=== PATIENT | female | born 1990 | race Caucasian/White ===

== ENCOUNTER 2019-11-17 11:15 | Observation (INO) | payer OTHER ==
[2019-11-17] MEDS ORDERED: methylPREDNISolone SOD SUCCI 125 MG/2 ML VIAL IV STA (11:31)
[2019-11-17] MEDS ORDERED: SODIUM CHLORIDE 0.9% 1,000 ML IV STA (11:31)
[2019-11-17] MEDS ORDERED: IPRATROPIUM-ALBUTEROL 3 ML NEB INHALATION STA (11:31)
[2019-11-17] MEDS ORDERED: MAGNESIUM SULFATE-D5W PMX 1 GM in DEXTROSE/WATER 1 100ML.BAG IVPB STA (11:31)
--- NOTE | 2019-11-17 11:36 | ED ---
General Adult HPI - General Chief complaint: Shortness of Breath Stated complaint: SOB Time Seen by Provider: 11/17/19 11:23 Source: patient, RN notes reviewed, old records reviewed Mode of arrival: ambulatory Limitations: no limitations - History of Present Illness Initial comments: Patient is a 29-year-old female with history of asthma presents emergency pharmacy with one week of difficulty breathing worsening cough. Patient reports that she previously had been admitted for asthma exacerbations which she was a child. She states she started has somewhat more productive cough the past day. She states that she's been using her breathing treatments at home with no significant relief. She last had one this morning. Patient states that she has had some chest tightness with taking a deep breath. Patient states that she's had no nausea or vomiting or fevers. Patient is a smoker. - Related Data Home Medications Medication Instructions Recorded Confirmed No Known Home Medications 11/17/19 11/17/19 Allergies Allergy/AdvReac Type Severity Reaction Status Date / Time amoxicillin Allergy Rash/Hives Verified 11/17/19 13:21 Review of Systems ROS Statement: Those systems with pertinent positive or pertinent negative responses have been documented in the HPI. ROS Other: All systems not noted in ROS Statement are negative. Past Medical History Past Medical History: Asthma Additional Past Medical History / Comment(s): chronic back issues History of Any Multi-Drug Resistant Organisms: MRSA Date of last positivie culture/infection: 10/2014 MDRO Source:: right arm Past Surgical History: Section, Cholecystectomy Additional Past Surgical History / Comment(s): laser treatment for genital warts Past Psychological History: No Psychological Hx Reported Smoking Status: Current every day smoker Past Alcohol Use History: Rare Past Drug Use History: Marijuana General Exam - General Exam Comments Initial Comments: 29 -year-old female. No significant distress. Limitations: no limitations General appearance: alert, in no apparent distress Head exam: Present: atraumatic, normocephalic, normal inspection Eye exam: Present: normal appearance, PERRL, EOMI. Absent: scleral icterus, conjunctival injection, periorbital swelling ENT exam: Present: normal exam, mucous membranes moist Neck exam: Present: normal inspection. Absent: tenderness, meningismus, lymphadenopathy Respiratory exam: Present: wheezes (wheezing, cough. ). Absent: normal lung sounds bilaterally, respiratory distress, rales, rhonchi, stridor Cardiovascular Exam: Present: regular rate, normal rhythm, normal heart sounds. Absent: systolic murmur, diastolic murmur, rubs, gallop, clicks GI/Abdominal exam: Present: soft, normal bowel sounds. Absent: distended, tenderness, guarding, rebound, rigid Back exam: Present: normal inspection Neurological exam: Present: alert, oriented X3, CN II-XII intact Psychiatric exam: Present: normal affect, normal mood Skin exam: Present: warm, dry, intact, normal color. Absent: rash Course Vital Signs 11/17/19 11/17/19 11/17/19 11:18 11:47 12:01 Temperature 98.1 F Pulse Rate 117 H 89 92 Respiratory 20 Rate Blood Pressure 136/86 O2 Sat by Pulse 97 Oximetry 11/17/19 11/17/19 13:38 13:48 Temperature Pulse Rate 89 90 Respiratory Rate Blood Pressure O2 Sat by Pulse Oximetry - Reevaluation(s) Reevaluation #1: 11/17/19 14:06 After 3 breathing treatments states he reports no significant relief. He does report sinus was obtained and she had a low pulse oxygen saturation around 87- 80% with audible wheezing. Medical Decision Making - Medical Decision Making 29-year-old female presents raise her arm today with chief complaint of one week of worsening difficulty breathing. She reports she has a known history of asthma. She's been doing breathing treatments at home without any significant relief. At this time Patient had 3 breathing treatments continue to have wheezing and ambulatory pulse ox shows that she was 87% on room air. She has audible wheezing continuously. She is given IV site and Medrol and magnesium and saline bolus. Due to persistent dyspnea seeing Patient will be admitted for IV steroids and breathing treatments. She has no fever, chest x-ray findings are concerning and blood work was reviewed and unremarkable. - Lab Data Result diagrams: 11/17/19 11:53 11/17/19 11:53 Lab Results 11/17/19 11/17/19 11/17/19 Range/Units 11:53 11:53 11:53 WBC 9.9 (3.8-10.6) k/uL RBC 5.06 (3.80-5.40) m/uL Hgb 14.7 (11.4-16.0) gm/dL Hct 43.2 (34.0-46.0) % MCV 85.3 (80.0-100.0) fL MCH 29.1 (25.0-35.0) pg MCHC 34.1 (31.0-37.0) g/dL RDW 13.3 (11.5-15.5) % Plt Count 338 (150-450) k/uL Neutrophils % 60 % Lymphocytes % 27 % Monocytes % 3 % Eosinophils % 8 % Basophils % 1 % Neutrophils # 5.9 (1.3-7.7) k/uL Lymphocytes # 2.7 (1.0-4.8) k/uL Monocytes # 0.3 (0-1.0) k/uL Eosinophils # 0.8 H (0-0.7) k/uL Basophils # 0.1 (0-0.2) k/uL PT 10.1 (9.0-12.0) sec INR 1.0 (<1.2) APTT 25.7 (22.0-30.0) sec Sodium 138 (137-145) mmol/L Potassium 4.0 (3.5-5.1) mmol/L Chloride 108 H (98-107) mmol/L Carbon Dioxide 20 L (22-30) mmol/L Anion Gap 10 mmol/L BUN 10 (7-17) mg/dL Creatinine 0.77 (0.52-1.04) mg/dL Est GFR (CKD-EPI)AfAm >90 (>60 ml/min/1.73 sqM) Est GFR (CKD-EPI)NonAf >90 (>60 ml/min/1.73 sqM) Glucose 101 H (74-99) mg/dL Plasma Lactic Acid Sathish (0.7-2.0) mmol/L Calcium 9.6 (8.4-10.2) mg/dL Magnesium 1.9 (1.6-2.3) mg/dL Total Bilirubin 0.6 (0.2-1.3) mg/dL AST 29 (14-36) U/L ALT 33 (4-34) U/L Alkaline Phosphatase 71 (38-126) U/L Total Protein 8.0 (6.3-8.2) g/dL Albumin 4.6 (3.5-5.0) g/dL 11/17/19 Range/Units 11:53 WBC (3.8-10.6) k/uL RBC (3.80-5.40) m/uL Hgb (11.4-16.0) gm/dL Hct (34.0-46.0) % MCV (80.0-100.0) fL MCH (25.0-35.0) pg MCHC (31.0-37.0) g/dL RDW (11.5-15.5) % Plt Count (150-450) k/uL Neutrophils % % Lymphocytes % % Monocytes % % Eosinophils % % Basophils % % Neutrophils # (1.3-7.7) k/uL Lymphocytes # (1.0-4.8) k/uL Monocytes # (0-1.0) k/uL Eosinophils # (0-0.7) k/uL Basophils # (0-0.2) k/uL PT (9.0-12.0) sec INR (<1.2) APTT (22.0-30.0) sec Sodium (137-145) mmol/L Potassium (3.5-5.1) mmol/L Chloride (98-107) mmol/L Carbon Dioxide (22-30) mmol/L Anion Gap mmol/L BUN (7-17) mg/dL Creatinine (0.52-1.04) mg/dL Est GFR (CKD-EPI)AfAm (>60 ml/min/1.73 sqM) Est GFR (CKD-EPI)NonAf (>60 ml/min/1.73 sqM) Glucose (74-99) mg/dL Plasma Lactic Acid Sathish 1.2 (0.7-2.0) mmol/L Calcium (8.4-10.2) mg/dL Magnesium (1.6-2.3) mg/dL Total Bilirubin (0.2-1.3) mg/dL AST (14-36) U/L ALT (4-34) U/L Alkaline Phosphatase (38-126) U/L Total Protein (6.3-8.2) g/dL Albumin (3.5-5.0) g/dL 11/17/19 14:22 EKG shows sinus rhythm normal EKG. Ventricular rate of 87 bpm. AR interval 156 ms. Prescription is 84 ms. QTc is 36/464 ms. - Radiology Data Radiology results: report reviewed Does x-rays negative for suspicious acute pulmonary process. Disposition Clinical Impression: Asthma exacerbation Disposition: ADMITTED IP TO THIS HOSP Condition: Stable Is patient prescribed a controlled substance at d/c from ED?: No Referrals: Shruthi Horta MD [Primary Care Provider] - 1-2 days Time of Disposition: 14:08
[2019-11-17 12:18] LABS: Partial Thromboplastin Time 25.7 sec (22.0-30.0); Prothrombin Time 10.1 sec (9.0-12.0)
[2019-11-17 12:19] LABS: Basophils # (A) 0.1 k/uL (0-0.2); Basophils % (A) 1 %; Eosinophils # (A) 0.8 k/uL (0-0.7); Eosinophils % (A) 8 %; HCT 43.2 % (34.0-46.0); HGB 14.7 gm/dL (11.4-16.0); Lymphocytes # (A) 2.7 k/uL (1.0-4.8); Lymphocytes % (A) 27 %; MCH 29.1 pg (25.0-35.0); MCHC 34.1 g/dL (31.0-37.0); MCV 85.3 fL (80.0-100.0); Mean Platelet Volume 7.5; Monocytes # (A) 0.3 k/uL (0-1.0); Monocytes % (A) 3 %; Neutrophils # (A) 5.9 k/uL (1.3-7.7); Neutrophils % (A) 60 %; Platelet Count 338 k/uL (150-450); RBC 5.06 m/uL (3.80-5.40); RDW 13.3 % (11.5-15.5); WBC 9.9 k/uL (3.8-10.6)
[2019-11-17 12:24] LABS: ALT 33 U/L (4-34); AST 29 U/L (14-36); African American GFR (CKD) >90 (>60 ml/min/1.73 sqM); Albumin 4.6 g/dL (3.5-5.0); Alkaline Phosphatase 71 U/L (38-126); Anion Gap 10 mmol/L; Blood Urea Nitrogen 10 mg/dL (7-17); Calcium 9.6 mg/dL (8.4-10.2); Carbon Dioxide 20 mmol/L (22-30); Chloride 108 mmol/L (98-107); Glucose 101 mg/dL (74-99); Magnesium 1.9 mg/dL (1.6-2.3); Non-African American GFR(CKD) >90 (>60 ml/min/1.73 sqM); Sodium 138 mmol/L (137-145); Total Bilirubin 0.6 mg/dL (0.2-1.3)
--- NOTE | 2019-11-17 13:12 | XR ---
EXAMINATION TYPE: XR chest 2V DATE OF EXAM: 11/17/2019 COMPARISON: NONE HISTORY: History of asthma with cough and shortness of breath. TECHNIQUE: Frontal and lateral views of the chest are obtained. FINDINGS: There is no suspicious focal air space opacity, pleural effusion, or pneumothorax seen. T he cardiac silhouette size is within normal limits. The osseous structures are intact. Asymmetric d iminished size of the left breast versus right breast with overlying metallic nipple ornaments incide ntally noted. IMPRESSION: No suspicious acute pulmonary process.
[2019-11-17] MEDS ORDERED: ALBUTEROL NEBULIZED 2.5 MG/3 ML INHALATION STA (13:20)
[2019-11-17] MEDS ORDERED: ONDANSETRON 4 MG/2 ML VIAL IVP PRN (14:25)
[2019-11-17] MEDS ORDERED: KETOROLAC 15 MG/ML 1 ML VIAL IVP PRN (14:25)
[2019-11-17] MEDS ORDERED: TEMAZEPAM 15 MG CAP PO PRN (14:25)
[2019-11-17] MEDS ORDERED: NALOXONE 0.4 MG/ML 1 ML VIAL IV PRN (14:25)
[2019-11-17] MEDS: SODIUM CHLORIDE 0.9% 1,000 ML IV SCH (15:30)
[2019-11-17] MEDS: ALBUTEROL NEBULIZED 2.5 MG/3 ML INHALATION SCH ×2 (15:35→20:18)
[2019-11-17] MEDS: methylPREDNISolone SOD SUCCI 125 MG/2 ML VIAL IV SCH ×2 (16:23→23:52)
[2019-11-17 16:33] LABS: Glucose,Whole Blood 199 mg/dL (75-99)
[2019-11-17] MEDS ORDERED: HYDROcodone/APAP 5-325MG 1 EACH TAB PO PRN (19:27)
[2019-11-17] MEDS ORDERED: ALPRAZolam 0.25 MG TAB PO PRN (19:27)
[2019-11-17] MEDS ORDERED: LEVOFLOXACIN 500MG-D5W PMX 500 MG in DEXTROSE/WATER 1 100ML.BAG IVPB SCH (20:00)
[2019-11-17] MEDS: BUDESONIDE 0.5 MG/2 ML NEBU INHALATION SCH (20:18)
[2019-11-17 21:02] LABS: Glucose,Whole Blood 190 mg/dL (75-99)
[2019-11-17] MEDS: NICOTINE 14MG/24HR PATCH TRANSDERM SCH (21:19)
[2019-11-17] MEDS: HEPARIN SODIUM,PORCINE 5,000 UNIT/ML 1 ML VIAL SQ SCH (21:20)
[2019-11-17] MEDS: INSULIN ASPART (NovoLOG) 100 UNIT/ML VIAL SQ SCH (21:20)
--- NOTE | 2019-11-17 22:15 | HP ---
HISTORY AND PHYSICAL DATE OF SERVICE: 11/17/2019 CHIEF COMPLAINT: Shortness of breath. HISTORY OF PRESENT ILLNESS: This 29-year-old woman with a past medical history of asthma, history of chronic back issues and MRSA, being followed by Dr. Shruthi Horta in the outpatient setting, has not been very compliant with treatment, according to her. The patient was having shortness of breath for the last one and a half years which has been increasing over the past one week. The patient also has some cough which is productive. The patient works at [email or web address]. There is no history of any fever, rigor or chills. No history of headache, loss of consciousness, seizures. Chest x-ray showed some increased bronchovascular markings. COVID-19 testing was negative. No history of chest pain, palpitation, headache, loss of consciousness, seizures. PAST MEDICAL HISTORY: Asthma, chronic back issues, MRSA, section, cholecystectomy. MEDICATIONS PRIOR TO ADMISSION: None. ALLERGIES: AMOXICILLIN. FAMILY HISTORY: No history of heart disease or strokes in the family. SOCIAL HISTORY: History of smoking. Occasional alcohol intake. History of THC. REVIEW OF SYSTEMS: ENT: No diminished hearing. No diminished vision. CARDIOVASCULAR SYSTEM: As mentioned earlier. RESPIRATORY SYSTEM: As mentioned earlier. GI: No nausea, vomiting. : No dysuria or retention. NERVOUS SYSTEM: No numbness, weakness. ALLERGY/IMMUNOLOGY: No asthma, hayfever. MUSCULOSKELETAL: As mentioned earlier. HEMATOLOGY/ONCOLOGY: No history of anemia. ENDOCRINE: No history of diabetes, hypothyroidism. CONSTITUTIONAL: As mentioned earlier. DERMATOLOGY: Negative. RHEUMATOLOGY: Negative. PSYCHIATRY: As mentioned earlier. PHYSICAL EXAMINATION: Patient alert and oriented x3. Pulse 95, blood pressure 136/75, respiration 20, temperature 98.5, pulse ox 97% on 2 L. HEENT: Conjunctivae normal. NECK: No jugular venous distention. CARDIOVASCULAR SYSTEM: S1, S2 muffled. RESPIRATORY SYSTEM: Breath sounds diminished at the bases. Bilateral scattered rhonchi and crackles. ABDOMEN: Soft, non-tender. LEGS: No edema. No swelling. NERVOUS SYSTEM: No focal deficit. LABS: CBC within normal limits. Sodium 138, potassium 4. CO2 is 20 and glucose 101. Coronavirus is negative. ASSESSMENT: 1. Acute bronchial asthma, acute exacerbation, with chronic intermittent bronchial asthma, acute purulent tracheobronchitis. 2. History of nicotine dependence. 3. History of chronic back pain, degenerative joint disease. 4. History of methicillin-resistant Staphylococcus aeruginosa. 5. History of cholecystectomy. 6. Obesity with body mass index of 32.6. 7. FULL CODE. RECOMMENDATIONS AND DISCUSSION: In this 29-year-old woman who presented with multiple complex medical issues, we will monitor the patient closely, continue the current medications, continue symptomatic treatment. I would recommend IV steroids, intensive bronchodilators, pulmonary consultation. Otherwise, empiric antibiotics. DVT prophylaxis. Symptomatic treatment. Guarded prognosis because of multiple complex medical issues. Further recommendations to follow. A copy of this dictation is being forwarded to Dr. Shruthi Horta in the outpatient setting. MMODL / IJN: [id number] /
[2019-11-18] MEDS: IPRATROPIUM-ALBUTEROL 3 ML NEB INHALATION PRN ×2 (02:22→23:11)
[2019-11-18] MEDS: methylPREDNISolone SOD SUCCI 125 MG/2 ML VIAL IV SCH ×3 (06:01→16:55)
[2019-11-18 07:17] LABS: Glucose,Whole Blood 160 mg/dL (75-99)
[2019-11-18] MEDS: PANTOPRAZOLE 40 MG TABLET PO SCH (07:49)
[2019-11-18] MEDS: ACETAMINOPHEN TAB 325 MG TAB PO PRN ×3 (07:49→21:15)
[2019-11-18] MEDS: INSULIN ASPART (NovoLOG) 100 UNIT/ML VIAL SQ SCH ×4 (07:50→21:08)
[2019-11-18] MEDS: HEPARIN SODIUM,PORCINE 5,000 UNIT/ML 1 ML VIAL SQ SCH ×2 (07:51→21:08)
[2019-11-18] MEDS: NICOTINE 14MG/24HR PATCH TRANSDERM SCH (07:51)
[2019-11-18] MEDS: ALBUTEROL NEBULIZED 2.5 MG/3 ML INHALATION SCH ×4 (08:49→19:34)
[2019-11-18] MEDS: BUDESONIDE 0.5 MG/2 ML NEBU INHALATION SCH ×2 (08:50→19:34)
[2019-11-18 09:28] LABS: Basophils % (A) 0 %; Eosinophils % (A) 0 %; HCT 39.7 % (34.0-46.0); HGB 12.8 gm/dL (11.4-16.0); Lymphocytes % (A) 6 %; MCH 28.3 pg (25.0-35.0); MCHC 32.3 g/dL (31.0-37.0); MCV 87.4 fL (80.0-100.0); Mean Platelet Volume 7.5; Monocytes # (A) 0.2 k/uL (0-1.0); Monocytes % (A) 1 %; Neutrophils # (A) 15.1 k/uL (1.3-7.7); Neutrophils % (A) 93 %; Platelet Count 295 k/uL (150-450); RBC 4.54 m/uL (3.80-5.40); RDW 13.5 % (11.5-15.5); WBC 16.2 k/uL (3.8-10.6)
[2019-11-18 09:58] LABS: African American GFR (CKD) >90 (>60 ml/min/1.73 sqM); Anion Gap 10 mmol/L; Blood Urea Nitrogen 10 mg/dL (7-17); Calcium 9.4 mg/dL (8.4-10.2); Carbon Dioxide 19 mmol/L (22-30); Chloride 107 mmol/L (98-107); Glucose 204 mg/dL (74-99); Non-African American GFR(CKD) >90 (>60 ml/min/1.73 sqM); Potassium 4.8 mmol/L (3.5-5.1); Sodium 136 mmol/L (137-145)
[2019-11-18 11:36] LABS: Glucose,Whole Blood 169 mg/dL (75-99)
[2019-11-18] MEDS: IBUPROFEN 400 MG TAB PO PRN (12:28)
[2019-11-18] MEDS: NYSTATIN 100,000 UNIT/ML SUSP 500,000 UNIT/5 ML CUP PO SCH ×2 (12:42→16:59)
[2019-11-18] MEDS: SODIUM CHLORIDE 0.9% 1,000 ML IV SCH (12:47)
[2019-11-18 16:37] LABS: Glucose,Whole Blood 181 mg/dL (75-99)
[2019-11-18 20:38] LABS: Glucose,Whole Blood 186 mg/dL (75-99)
[2019-11-18] MEDS: LEVOFLOXACIN 500 MG TAB PO SCH (21:08)
[2019-11-19] MEDS: methylPREDNISolone SOD SUCCI 125 MG/2 ML VIAL IV SCH ×4 (00:06→18:46)
[2019-11-19] MEDS: NYSTATIN 100,000 UNIT/ML SUSP 500,000 UNIT/5 ML CUP PO SCH ×5 (01:43→20:35)
[2019-11-19] MEDS: IPRATROPIUM-ALBUTEROL 3 ML NEB INHALATION PRN ×2 (03:19→11:24)
[2019-11-19] MEDS: HEPARIN SODIUM,PORCINE 5,000 UNIT/ML 1 ML VIAL SQ SCH ×2 (07:13→20:36)
[2019-11-19] MEDS: NICOTINE 14MG/24HR PATCH TRANSDERM SCH (07:13)
[2019-11-19] MEDS: PANTOPRAZOLE 40 MG TABLET PO SCH (07:13)
[2019-11-19] MEDS: INSULIN ASPART (NovoLOG) 100 UNIT/ML VIAL SQ SCH ×4 (07:15→20:36)
[2019-11-19 07:17] LABS: Glucose,Whole Blood 153 mg/dL (75-99)
[2019-11-19 07:42] LABS: Basophils % (A) 0 %; Eosinophils # (A) 0.1 k/uL (0-0.7); Eosinophils % (A) 0 %; HCT 40.7 % (34.0-46.0); HGB 13.4 gm/dL (11.4-16.0); Lymphocytes # (A) 1.2 k/uL (1.0-4.8); Lymphocytes % (A) 6 %; MCH 28.6 pg (25.0-35.0); MCHC 32.9 g/dL (31.0-37.0); Mean Platelet Volume 7.3; Monocytes # (A) 0.5 k/uL (0-1.0); Monocytes % (A) 2 %; Neutrophils % (A) 91 %; Platelet Count 354 k/uL (150-450); RBC 4.68 m/uL (3.80-5.40); RDW 13.7 % (11.5-15.5); WBC 19.8 k/uL (3.8-10.6)
[2019-11-19 07:54] LABS: African American GFR (CKD) >90 (>60 ml/min/1.73 sqM); Anion Gap 12 mmol/L; Blood Urea Nitrogen 12 mg/dL (7-17); Calcium 9.8 mg/dL (8.4-10.2); Carbon Dioxide 21 mmol/L (22-30); Chloride 106 mmol/L (98-107); Glucose 139 mg/dL (74-99); Non-African American GFR(CKD) >90 (>60 ml/min/1.73 sqM); Potassium 4.2 mmol/L (3.5-5.1); Sodium 139 mmol/L (137-145)
[2019-11-19] MEDS: ALBUTEROL NEBULIZED 2.5 MG/3 ML INHALATION SCH ×4 (08:08→19:55)
[2019-11-19] MEDS: BUDESONIDE 0.5 MG/2 ML NEBU INHALATION SCH ×2 (08:08→19:55)
[2019-11-19] MEDS: ACETAMINOPHEN TAB 325 MG TAB PO PRN ×2 (08:43→21:05)
--- NOTE | 2019-11-19 11:34 | P.PN ---
Subjective Progress Note Date: 11/18/19 Principal diagnosis: Acute exacerbation asthma Acute purulent tracheobronchitis 29-year-old female patient with history of asthma, chronic back pain and MRSA presented to ED with complaint of shortness of breath which is getting progressively worse for a week; workup in ED included chest x-ray which revealed increased bronchovascular markings, cooperative 19 testing was negative; patient is admitted for further treatment for acute exacerbation of asthma and severe tracheobronchitis Objective - Vital Signs Vital signs: Vital Signs Temp 98.4 F 11/18/19 07:00 Pulse 92 11/18/19 11:24 Resp 18 11/18/19 08:00 BP 123/68 11/18/19 07:00 Pulse Ox 94 L 11/18/19 10:54 Intake & Output 11/17/19 11/18/19 11/18/19 18:59 06:59 18:59 Intake Total 160 550 Balance 160 550 Weight 90.718 kg Intake: Intake, IV Titration 160 Amount Sodium Chloride 0.9% 1, 160 000 ml @ 20 mls/hr IV . Q24H [facility] Rx#:[id number] Oral 550 Other: Voiding Method Toilet Toilet # Voids 2 2 - Exam - Constitutional General appearance: Present: average body habitus, cooperative, no acute distress - EENT Eyes: Present: anicteric sclerae, EOMI, PERRLA, normal appearance ENT: Present: hearing grossly normal, normal oropharynx Ears: bilateral: normal - Neck Neck: Present: normal ROM. Absent: lymphadenopathy, rigidity, thyromegaly Carotids: negative: bruit present Thyroid: bilateral: normal size, negative: enlarged, nodule - Respiratory Respiratory: bilateral: CTA, negative: rales, rhonchi, wheezing - Cardiovascular Rhythm: regular Heart sounds: normal: S1, S2 Abnormal Heart Sounds: Absent: systolic murmur, diastolic murmur - Gastrointestinal General gastrointestinal: Present: normal bowel sounds, soft. Absent: distended, organomegaly, tenderness - Genitourinary Genitourinary Comment(s): deferred - Integumentary Integumentary: Present: normal turgor. Absent: jaundiced, rash, ulcer - Neurologic Neurologic: Present: CNII-XII intact. Absent: focal deficits - Musculoskeletal Musculoskeletal: Present: gait normal, strength equal bilaterally - Psychiatric Psychiatric: Present: A&O x's 3, appropriate affect, intact judgment & insight - Labs CBC & Chem 7: 11/19/19 07:18 11/19/19 07:18 Labs: Abnormal Lab Results - Last 24 Hours (Table) 11/17/19 11/17/19 11/17/19 Range/Units 11:53 11:53 16:31 WBC (3.8-10.6) k/uL Neutrophils # (1.3-7.7) k/uL Eosinophils # 0.8 H (0-0.7) k/uL Sodium (137-145) mmol/L Chloride 108 H (98-107) mmol/L Carbon Dioxide 20 L (22-30) mmol/L Glucose 101 H (74-99) mg/dL POC Glucose (mg/dL) 199 H (75-99) mg/dL 11/17/19 11/18/19 11/18/19 Range/Units 21:01 07:16 08:34 WBC 16.2 H (3.8-10.6) k/uL Neutrophils # 15.1 H (1.3-7.7) k/uL Eosinophils # (0-0.7) k/uL Sodium (137-145) mmol/L Chloride (98-107) mmol/L Carbon Dioxide (22-30) mmol/L Glucose (74-99) mg/dL POC Glucose (mg/dL) 190 H 160 H (75-99) mg/dL 11/18/19 Range/Units 08:34 WBC (3.8-10.6) k/uL Neutrophils # (1.3-7.7) k/uL Eosinophils # (0-0.7) k/uL Sodium 136 L (137-145) mmol/L Chloride (98-107) mmol/L Carbon Dioxide 19 L (22-30) mmol/L Glucose 204 H (74-99) mg/dL POC Glucose (mg/dL) (75-99) mg/dL Assessment and Plan Assessment: 1. Acute exacerbation of asthma - Patient remains on IV steroids in form of Solu-Medrol 60 mg IV every 6 hours and intensive bronchodilator and steroid inhalation therapy; pulmonary is consul mimi and recommendations are pending 2. Acute purulent tracheobronchitis; Levaquin 500 mg by mouth daily 3. Chronic back pain/DJD; [place] 52 25 mg 1 by mouth every 6 hours when necessary along with ibuprofen 400 mg by mouth every 6 hours when necessary 4. Obesity; counseling done 5. Anxiety; patient takes Xanax 0.25 mg 3 times a day when necessary DVT prophylaxis; SCDs CODE STATUS; full code
[2019-11-19 11:35] LABS: Glucose,Whole Blood 240 mg/dL (75-99)
[2019-11-19] MEDS: SODIUM CHLORIDE 0.9% 1,000 ML IV SCH (16:29)
[2019-11-19 17:19] LABS: Glucose,Whole Blood 146 mg/dL (75-99)
[2019-11-19] MEDS: IBUPROFEN 400 MG TAB PO PRN (17:55)
[2019-11-19 20:29] LABS: Glucose,Whole Blood 178 mg/dL (75-99)
[2019-11-19] MEDS: LEVOFLOXACIN 500 MG TAB PO SCH (20:36)
[2019-11-20] MEDS: methylPREDNISolone SOD SUCCI 125 MG/2 ML VIAL IV SCH ×2 (05:28)
[2019-11-20 07:02] LABS: RBC 4.59 m/uL (3.80-5.40); WBC 14.5 k/uL (3.8-10.6)
[2019-11-20 07:03] LABS: Basophils % (A) 0 %; Eosinophils % (A) 0 %; HCT 40.1 % (34.0-46.0); HGB 13.3 gm/dL (11.4-16.0); Lymphocytes # (A) 1.2 k/uL (1.0-4.8); Lymphocytes % (A) 8 %; MCHC 33.2 g/dL (31.0-37.0); MCV 87.3 fL (80.0-100.0); Mean Platelet Volume 7.3; Monocytes # (A) 0.3 k/uL (0-1.0); Monocytes % (A) 2 %; Neutrophils % (A) 90 %; Platelet Count 323 k/uL (150-450); RDW 13.5 % (11.5-15.5)
[2019-11-20 07:06] LABS: Glucose,Whole Blood 165 mg/dL (75-99)
[2019-11-20 07:20] LABS: African American GFR (CKD) >90 (>60 ml/min/1.73 sqM); Anion Gap 9 mmol/L; Blood Urea Nitrogen 15 mg/dL (7-17); Calcium 9.3 mg/dL (8.4-10.2); Carbon Dioxide 23 mmol/L (22-30); Chloride 104 mmol/L (98-107); Glucose 148 mg/dL (74-99); Non-African American GFR(CKD) >90 (>60 ml/min/1.73 sqM); Potassium 4.8 mmol/L (3.5-5.1); Sodium 136 mmol/L (137-145)
[2019-11-20 07:31] VITALS: BP 123/81; RESP 18; TEMP 98.1
[2019-11-20] MEDS: INSULIN ASPART (NovoLOG) 100 UNIT/ML VIAL SQ SCH (07:49)
[2019-11-20] MEDS: NICOTINE 14MG/24HR PATCH TRANSDERM SCH (07:49)
[2019-11-20] MEDS: HEPARIN SODIUM,PORCINE 5,000 UNIT/ML 1 ML VIAL SQ SCH (07:49)
[2019-11-20] MEDS: PANTOPRAZOLE 40 MG TABLET PO SCH (07:53)
[2019-11-20] MEDS: ACETAMINOPHEN TAB 325 MG TAB PO PRN (08:00)
--- NOTE | 2019-11-20 08:29 | P.PN ---
Subjective Progress Note Date: 11/19/19 Principal diagnosis: Acute exacerbation asthma Acute purulent tracheobronchitis 29-year-old female patient with history of asthma, chronic back pain and MRSA presented to ED with complaint of shortness of breath which is getting progressively worse for a week; workup in ED included chest x-ray which revealed increased bronchovascular markings, cooperative 19 testing was negative; patient is admitted for further treatment for acute exacerbation of asthma and severe tracheobronchitis 11/19/2019 Patient is seen and evaluated in room at bedside; does report improvement in breathing when at rest; continues to be extremely short of breath with ambulati on to the bathroom Vital signs remained stable with SpO2 of above 95%; lab review reveals white blood count trending up to 19.8 possibly secondary to steroid therapy; blood glucoses ranging between 139-178 We will continue with IV steroids for another 24 hours and switch to prednisone with quick taper; continue with DuoNeb nebulizer treatments 4 times a day and when necessary along with Pulmicort nebulizer 0.5 mg twice a day; Levaquin 500 mg daily for severe tracheobronchitis Possible discharge in next 24 hours if remains stable Objective - Vital Signs Vital signs: Vital Signs Temp 98.6 F 11/19/19 07:00 Pulse 80 11/19/19 11:24 Resp 18 11/19/19 07:00 BP 147/95 11/19/19 07:00 Pulse Ox 96 11/19/19 07:00 Intake & Output 11/18/19 11/19/19 11/19/19 18:59 06:59 18:59 Intake Total 800 Balance 800 Intake: Oral 800 Other: Voiding Method Toilet Toilet # Voids 2 2 - Exam - Constitutional General appearance: Present: average body habitus, cooperative, no acute distress - EENT Eyes: Present: anicteric sclerae, EOMI, PERRLA, normal appearance ENT: Present: hearing grossly normal, normal oropharynx Ears: bilateral: normal - Neck Neck: Present: normal ROM. Absent: lymphadenopathy, rigidity, thyromegaly Carotids: negative: bruit present Thyroid: bilateral: normal size, negative: enlarged, nodule - Respiratory Respiratory: bilateral: CTA, negative: rales, rhonchi, wheezing - Cardiovascular Rhythm: regular Heart sounds: normal: S1, S2 Abnormal Heart Sounds: Absent: systolic murmur, diastolic murmur - Gastrointestinal General gastrointestinal: Present: normal bowel sounds, soft. Absent: distended, organomegaly, tenderness - Genitourinary Genitourinary Comment(s): deferred - Integumentary Integumentary: Present: normal turgor. Absent: jaundiced, rash, ulcer - Neurologic Neurologic: Present: CNII-XII intact. Absent: focal deficits - Musculoskeletal Musculoskeletal: Present: gait normal, strength equal bilaterally - Psychiatric Psychiatric: Present: A&O x's 3, appropriate affect, intact judgment & insight - Labs CBC & Chem 7: 11/20/19 06:28 11/20/19 06:28 Labs: Abnormal Lab Results - Last 24 Hours (Table) 11/18/19 11/18/19 11/18/19 Range/Units 11:34 16:35 20:36 WBC (3.8-10.6) k/uL Neutrophils # (1.3-7.7) k/uL Carbon Dioxide (22-30) mmol/L Glucose (74-99) mg/dL POC Glucose (mg/dL) 169 H 181 H 186 H (75-99) mg/dL 11/19/19 11/19/19 11/19/19 Range/Units 07:14 07:18 07:18 WBC 19.8 H (3.8-10.6) k/uL Neutrophils # 18.0 H (1.3-7.7) k/uL Carbon Dioxide 21 L (22-30) mmol/L Glucose 139 H (74-99) mg/dL POC Glucose (mg/dL) 153 H (75-99) mg/dL Assessment and Plan Assessment: 1. Acute exacerbation of asthma - Patient remains on IV steroids in form of Solu-Medrol 60 mg IV every 6 hours and intensive bronchodilator and steroid inhalation therapy; pulmonary is consulted and recommendations are pending 2. Acute purulent tracheobronchitis; Levaquin 500 mg by mouth daily 3. Chronic back pain/DJD; [place] 52 25 mg 1 by mouth every 6 hours when necessary along with ibuprofen 400 mg by mouth every 6 hours when necessary 4. Obesity; counseling done 5. Anxiety; patient takes Xanax 0.25 mg 3 times a day when necessary DVT prophylaxis; SCDs CODE STATUS; full code
[2019-11-20] MEDS: BUDESONIDE 0.5 MG/2 ML NEBU INHALATION SCH (09:05)
[2019-11-20] MEDS: ALBUTEROL NEBULIZED 2.5 MG/3 ML INHALATION SCH ×2 (09:05→12:04)
[2019-11-20 11:35] LABS: Glucose,Whole Blood 137 mg/dL (75-99)
[2019-11-20 12:15] VITALS: PULSE 64
--- NOTE | 2019-11-22 17:21 | P.DS ---
Providers Date of admission: 11/17/19 14:24 Expected date of discharge: 11/20/19 Attending physician: Stella Alejo [facility] Course: 29-year-old female patient with history of asthma, chronic back pain and MRSA presented to ED with complaint of shortness of breath which is getting progressively worse for a week; workup in ED included chest x-ray which revealed increased bronchovascular markings, cooperative 19 testing was negative; patient is admitted for further treatment for acute exacerbation of asthma and severe tracheobronchitis 11/19/2019 Patient is seen and evaluated in room at bedside; does report improvement in breathing when at rest; continues to be extremely short of breath with ambulation to the bathroom Vital signs remained stable with SpO2 of above 95%; lab review reveals white blood count trending up to 19.8 possibly secondary to steroid therapy; blood glucoses ranging between 139-178 We will continue with IV steroids for another 24 hours and switch to prednisone with quick taper; continue with DuoNeb nebulizer treatments 4 times a day and when necessary along with Pulmicort nebulizer 0.5 mg twice a day; Levaquin 500 mg daily for severe tracheobronchitis Possible discharge in next 24 hours if remains stable 11/20/19; patient markedly improved; dc home on steroid taper and oral antibiotics Patient Condition at Discharge: Stable Plan - Discharge Summary New Discharge Prescriptions: New Levofloxacin [Levaquin] 500 mg PO 1999 #7 tab Nystatin 100,000 Unit/ml Susp [Mycostatin Oral Susp] 500,000 unit PO QID 7 Days #140 ml predniSONE See Taper PO DIRECTED #21 tab Discharge Medication List Levofloxacin [Levaquin] 500 mg PO 1999 #7 tab 11/20/19 [Rx] Nystatin 100,000 Unit/ml Susp [Mycostatin Oral Susp] 500,000 unit PO QID 7 Days #140 ml 11/20/19 [Rx] predniSONE See Taper PO DIRECTED #21 tab 11/20/19 [Rx] Follow up Appointment(s)/Referral(s): Shruthi Horta MD [Primary Care Provider] - 1-2 days Patient Instructions/Handouts: Asthma (DC) Discharge Disposition: HOME SELF-CARE
== END 2019-11-20 14:15 | disposition home or self-care (01) ==
LOC: EC 11:15 → 4SSUR 14:24 → MERGE 14:24 → INTOOBSV 14:24 → UNDODISIN 11-20 14:15
PROVIDERS: ADMIT Hospitalist; ATTEND Hospitalist
DX: J45.21 Mild intermittent asthma with (acute) exacerbation (principal); J20.9 Acute bronchitis, unspecified; G89.29 Other chronic pain; M54.9 Dorsalgia, unspecified; E66.9 Obesity, unspecified; Z68.32 Body mass index [BMI] 32.0-32.9, adult; F41.9 Anxiety disorder, unspecified; Z86.14 Personal history of Methicillin resistant Staphylococcus aureus infection; Z20.828 Contact with and (suspected) exposure to other viral communicable diseases; Z91.19 Patient's noncompliance with other medical treatment and regimen; Z90.49 Acquired absence of other specified parts of digestive tract; Z88.0 Allergy status to penicillin; M19.90 Unspecified osteoarthritis, unspecified site; F17.200 Nicotine dependence, unspecified, uncomplicated
CPT/HCPCS: 96376 ×4; 96366; 96367; 96372 ×4; 96375 ×2; 96365; 99285; 36415; 94640 ×8; 94760; 93005; 80053; 80048 ×3; 83605; 83735; 85025 ×4; 85610; 85730; 87635; 71046; G0378 ×4; U0003; S4990 ×4; J1644 ×4; J2930 ×4; J1956; J3475; J1885

== ENCOUNTER 2020-08-01 13:03 | Emergency (ER) | payer OTHER ==
[2020-08-01 13:06] VITALS: TEMP 97.9
[2020-08-01] MEDS ORDERED: SODIUM CHLORIDE 0.9% 1,000 ML IV STA (13:33)
[2020-08-01] MEDS ORDERED: ONDANSETRON 4 MG/2 ML VIAL IVP STA (13:33)
[2020-08-01] MEDS ORDERED: PANTOPRAZOLE 40 MG/10 ML VIAL IVP STA (14:09)
--- NOTE | 2020-08-01 14:11 | ED ---
General Adult HPI - General Chief complaint: Nausea/Vomiting/Diarrhea Stated complaint: dizzy, nausea Time Seen by Provider: 08/01/20 13:20 Source: patient, RN notes reviewed Mode of arrival: ambulatory Limitations: no limitations - History of Present Illness Initial comments: Patient is a 30-year-old female that presents to emergency department complai florina of nausea and vomiting starting at 10:30 this morning. She notes that on her one episode of vomiting she noticed a little glob of blood came out so she came in and get evaluated. She denied any abdominal pain while sitting up in bed during exam and interview. She was well-appearing, well-hydrated during the exam interview. She denied any she's had her tubes tied. She denied any chest pain shortness of breath headache diarrhea constipation fever fatigue chills hematochezia melena. - Related Data Home Medications Medication Instructions Recorded Confirmed No Known Home Medications 08/01/20 08/01/20 Allergies Allergy/AdvReac Type Severity Reaction Status Date / Time amoxicillin Allergy Rash/Hives Verified 08/01/20 13:06 Review of Systems ROS Statement: Those systems with pertinent positive or pertinent negative responses have been documented in the HPI. ROS Other: All systems not noted in ROS Statement are negative. Past Medical History Past Medical History: Asthma Additional Past Medical History / Comment(s): chronic back issues History of Any Multi-Drug Resistant Organisms: MRSA Date of last positivie culture/infection: 10/2014 MDRO Source:: right arm Past Surgical History: Section, Cholecystectomy, Tubal Ligation Additional Past Surgical History / Comment(s): laser treatment for genital warts Past Psychological History: No Psychological Hx Reported Smoking Status: Former smoker Past Alcohol Use History: Rare Past Drug Use History: Marijuana General Exam Limitations: no limitations General appearance: alert, in no apparent distress, obese Head exam: Present: atraumatic, normocephalic, normal inspection Eye exam: Present: normal appearance, PERRL, EOMI. Absent: scleral icterus, conjunctival injection, periorbital swelling Neck exam: Present: normal inspection Respiratory exam: Present: normal lung sounds bilaterally. Absent: respiratory distress, wheezes, rales, rhonchi, stridor Cardiovascular Exam: Present: regular rate, normal rhythm, normal heart sounds. Absent: systolic murmur, diastolic murmur, rubs, gallop, clicks GI/Abdominal exam: Present: soft, tenderness (Left lower quadrant), rebound (Left lower quadrant), hypoactive bowel sounds. Absent: distended, guarding, rigid Extremities exam: Present: normal inspection, full ROM, normal capillary refill. Absent: tenderness, pedal edema, joint swelling, calf tenderness Neurological exam: Present: alert, oriented X3, CN II-XII intact Psychiatric exam: Present: normal affect, normal mood Skin exam: Present: warm, dry, intact, normal color. Absent: rash Course Vital Signs 08/01/20 13:03 Temperature 97.9 F Pulse Rate 87 Respiratory 20 Rate Blood Pressure 131/84 O2 Sat by Pulse 99 Oximetry Medical Decision Making - Medical Decision Making 30-year-old female complaining of nausea and one episode of vomiting since 10:30 this morning. Labs, 1 L normal saline, 4 mg Zofran, 40 mg of Protonix, CT of the abdomen and pelvis ordered. Patient declined need for any pain medication as she was experiencing no pain just discomfort. Case discussed with Dr. Maxwell, patient can discharge home with follow-up to GI and primary care. - Lab Data Result diagrams: 08/01/20 13:42 08/01/20 13:42 Lab Results 08/01/20 08/01/20 Range/Units 13:42 13:42 WBC 9.4 (3.8-10.6) k/uL RBC 4.80 (3.80-5.40) m/uL Hgb 13.7 (11.4-16.0) gm/dL Hct 40.3 (34.0-46.0) % MCV 84.0 (80.0-100.0) fL MCH 28.5 (25.0-35.0) pg MCHC 33.9 (31.0-37.0) g/dL RDW 13.2 (11.5-15.5) % Plt Count 343 (150-450) k/uL MPV 7.4 Neutrophils % 66 % Lymphocytes % 23 % Monocytes % 4 % Eosinophils % 5 % Basophils % 1 % Neutrophils # 6.2 (1.3-7.7) k/uL Lymphocytes # 2.1 (1.0-4.8) k/uL Monocytes # 0.4 (0-1.0) k/uL Eosinophils # 0.5 (0-0.7) k/uL Basophils # 0.1 (0-0.2) k/uL Sodium 139 (137-145) mmol/L Potassium 4.3 (3.5-5.1) mmol/L Chloride 105 (98-107) mmol/L Carbon Dioxide 24 (22-30) mmol/L Anion Gap 10 mmol/L BUN 13 (7-17) mg/dL Creatinine 0.81 (0.52-1.04) mg/dL Est GFR (CKD-EPI)AfAm >90 (>60 ml/min/1.73 sqM) Est GFR (CKD-EPI)NonAf >90 (>60 ml/min/1.73 sqM) Glucose 95 (74-99) mg/dL Calcium 10.0 (8.4-10.2) mg/dL Total Bilirubin 0.5 (0.2-1.3) mg/dL AST 40 H (14-36) U/L ALT 53 H (4-34) U/L Alkaline Phosphatase 61 (38-126) U/L Total Protein 8.0 (6.3-8.2) g/dL Albumin 4.7 (3.5-5.0) g/dL Amylase 65 (30-110) U/L Lipase 69 (23-300) U/L - Radiology Data Radiology results: report reviewed, image reviewed CT of the abdomen and pelvis: Cannot exclude areas of mild uncomplicated acute enterocolitis versus products of port distention. Correlate clinically. Otherwise no acute findings evident. Disposition Clinical Impression: Amy-Kirkland tear, Nausea & vomiting, Enterocolitis Disposition: HOME SELF-CARE Condition: Stable Instructions (If sedation given, give patient instructions): Acute Nausea and Vomiting (ED) Additional Instructions: Please return to the Emergency Department if symptoms worsen or any other concerns. Follow-up primary care in 3-5 days. Increase oral fluids, eat a bland diet that sees to digest exam the stomach. Follow-up with GI if needed. Is patient prescribed a controlled substance at d/c from ED?: No Referrals: Shruthi Horta MD [Primary Care Provider] - 1-2 days Alisa Guzman MD [STAFF PHYSICIAN] - 1-2 days
[2020-08-01 14:12] LABS: Basophils # (A) 0.1 k/uL (0-0.2); Basophils % (A) 1 %; Eosinophils # (A) 0.5 k/uL (0-0.7); Eosinophils % (A) 5 %; HCT 40.3 % (34.0-46.0); HGB 13.7 gm/dL (11.4-16.0); Lymphocytes # (A) 2.1 k/uL (1.0-4.8); Lymphocytes % (A) 23 %; MCH 28.5 pg (25.0-35.0); MCHC 33.9 g/dL (31.0-37.0); Mean Platelet Volume 7.4; Monocytes # (A) 0.4 k/uL (0-1.0); Monocytes % (A) 4 %; Neutrophils # (A) 6.2 k/uL (1.3-7.7); Neutrophils % (A) 66 %; Platelet Count 343 k/uL (150-450); RDW 13.2 % (11.5-15.5); WBC 9.4 k/uL (3.8-10.6)
[2020-08-01 14:18] LABS: ALT 53 U/L (4-34); AST 40 U/L (14-36); African American GFR (CKD) >90 (>60 ml/min/1.73 sqM); Albumin 4.7 g/dL (3.5-5.0); Alkaline Phosphatase 61 U/L (38-126); Amylase 65 U/L (30-110); Anion Gap 10 mmol/L; Blood Urea Nitrogen 13 mg/dL (7-17); Carbon Dioxide 24 mmol/L (22-30); Chloride 105 mmol/L (98-107); Glucose 95 mg/dL (74-99); Lipase 69 U/L (23-300); Non-African American GFR(CKD) >90 (>60 ml/min/1.73 sqM); Potassium 4.3 mmol/L (3.5-5.1); Sodium 139 mmol/L (137-145); Total Bilirubin 0.5 mg/dL (0.2-1.3)
--- NOTE | 2020-08-01 14:45 | CT ---
EXAMINATION TYPE: CT abdomen pelvis w con DATE OF EXAM: 08/01/2020 HISTORY: Hematemesis and dizziness, abdominal pain CT DLP: 1524mGycm Automated Exposure Control for Dose Reduction was Utilized. CONTRAST: CT scan of the abdomen and pelvis is performed without oral but with IV Contrast, patient injected wi th 100 mL of Isovue 300. COMPARISON: None. FINDINGS: LUNG BASES: No significant abnormality is appreciated. LIVER/GB: Cholecystectomy clips are present. Prominent right hepatic lobe and/or mild hepatomegaly. PANCREAS: No significant abnormality is seen. SPLEEN: No significant abnormality is seen. ADRENALS: No significant abnormality is seen. KIDNEYS: Simple appearing 1.2 cm thin-walled cyst anteriorly left kidney upper to midpole level delay ed axial image 27. Symmetric cortical medullary uptake and excretion without concerning renal mass or hydronephrosis seen bilaterally. BOWEL: Suboptimal evaluation without enteric contrast. Debris-filled stomach suggests recent meal ing estion. No suspicious small or large bowel dilatation. Normal-appearing appendix from cecum coronal i mage 59. Perhaps mild wall thickening and mucosal enhancement level terminal ileum coronal image 54 f or reference. Slightly low-lying cecum into the right pelvis. Mild wall thickening in the slightly re dundant sigmoid colon. UTERUS/ADNEXA: Anteverted uterus. Ovaries symmetric and normal in size. LYMPH NODES: No greater than 1cm abdominal or pelvic lymph nodes are appreciated. OSSEOUS STRUCTURES: Transitional type L6 vertebra sacralized on the left. Moderate to severe disc spa ce narrowing with endplate sclerosis and moderate spurring L5 L6 level. Posterior spur disc complex a t this level effaces anterior thecal sac sagittal image 71. Facet arthropathy lower lumbar spine. OTHER: No significant additional abnormality is seen. IMPRESSION: Cannot exclude areas of mild uncomplicated acute enterocolitis versus product of poor dis tention, correlate clinically, otherwise no acute findings are evident.
[2020-08-01 15:32] VITALS: BP 122/79; PULSE 74; RESP 18
== END 2020-08-01 15:31 | disposition home or self-care (01) ==
LOC: EC 13:03
DX: K22.6 Gastro-esophageal laceration-hemorrhage syndrome (principal); K52.9 Noninfective gastroenteritis and colitis, unspecified; J45.909 Unspecified asthma, uncomplicated; Z87.891 Personal history of nicotine dependence; F12.90 Cannabis use, unspecified, uncomplicated
CPT/HCPCS: 36415; 80053; 82150; 83690; 85025; 74177; 99284; 96374; 96375; 96361; J2405; C9113; Q9967

== ENCOUNTER 2020-10-27 16:44 | Emergency (ER) | payer OTHER ==
[2020-10-27 16:47] VITALS: BP 129/84; PULSE 100; RESP 19; TEMP 98.3
--- NOTE | 2020-10-27 17:16 | ED ---
General Adult HPI - General Chief complaint: Recheck/Abnormal Lab/Rx Stated complaint: Female Time Seen by Provider: 10/27/20 16:49 Source: patient, RN notes reviewed Mode of arrival: ambulatory Limitations: no limitations - History of Present Illness Initial comments: 30-year-old female presents emergency Department with chief complaint of positive syphilis. She's been having chest pain in which she states that she called today stating that she tested positive on both past. Patient states that her primary care physician called in doxycycline with the emergency department to possibly receive penicillin G. Patient states that she had an ALLERGY to amoxicillin which she states she had throat swelling in the past and has never taken any penicillin products or sense. Patient states that she didn't initially have some sores on her body but states she has no current symptoms including fevers chills cough cold like symptoms sore throat night sweats headache or dizziness. - Related Data Previous Rx's Medication Instructions Recorded Omeprazole [PriLOSEC] 20 mg PO AC-BRKFST #14 cap 08/01/20 Allergies Allergy/AdvReac Type Severity Reaction Status Date / Time amoxicillin Allergy Rash/Hives Verified 10/27/20 16:49 Review of Systems ROS Statement: Those systems with pertinent positive or pertinent negative responses have been documented in the HPI. ROS Other: All systems not noted in ROS Statement are negative. Past Medical History Past Medical History: Asthma Additional Past Medical History / Comment(s): chronic back issues History of Any Multi-Drug Resistant Organisms: MRSA Date of last positivie culture/infection: 10/2014 MDRO Source:: right arm Past Surgical History: Section, Cholecystectomy, Tubal Ligation Additional Past Surgical History / Comment(s): laser treatment for genital warts Past Psychological History: No Psychological Hx Reported Smoking Status: Former smoker Past Alcohol Use History: Rare Past Drug Use History: Marijuana General Exam Limitations: no limitations General appearance: alert, in no apparent distress Head exam: Present: atraumatic, normocephalic, normal inspection Neck exam: Present: normal inspection, full ROM. Absent: tenderness, meningismus, lymphadenopathy Respiratory exam: Present: normal lung sounds bilaterally. Absent: respiratory distress, wheezes, rales, rhonchi, stridor Cardiovascular Exam: Present: regular rate, normal rhythm, normal heart sounds. Absent: systolic murmur, diastolic murmur, rubs, gallop, clicks Neurological exam: Present: alert Skin exam: Present: warm, dry, intact, normal color. Absent: rash Course Vital Signs 10/27/20 16:45 Temperature 98.3 F Pulse Rate 100 Respiratory 19 Rate Blood Pressure 129/84 O2 Sat by Pulse 99 Oximetry Medical Decision Making - Medical Decision Making Patient had throat swelling with penicillin products she will not receive penicillin G. Patient will take her doxycycline as prescribed. l Disposition Clinical Impression: Syphilis Disposition: HOME SELF-CARE Condition: Stable Instructions (If sedation given, give patient instructions): Syphilis (ED) Additional Instructions: Please return to the Emergency Department if symptoms worsen or any other concerns. Is patient prescribed a controlled substance at d/c from ED?: No Referrals: Shruthi Horta MD [Primary Care Provider] - 1-2 days Time of Disposition: 17:15
== END 2020-10-27 17:28 | disposition home or self-care (01) ==
LOC: EC 16:44
DX: A53.9 Syphilis, unspecified (principal); R07.9 Chest pain, unspecified; J45.909 Unspecified asthma, uncomplicated; F12.90 Cannabis use, unspecified, uncomplicated; Z87.891 Personal history of nicotine dependence; Z90.49 Acquired absence of other specified parts of digestive tract
CPT/HCPCS: 99284

== ENCOUNTER 2021-11-29 02:15 | Emergency (ER) | payer OTHER ==
[2021-11-29 02:22] VITALS: TEMP 98.3
[2021-11-29] MEDS ORDERED: KETOROLAC 15 MG/ML 1 ML VIAL IVP STA (02:23)
[2021-11-29] MEDS ORDERED: ONDANSETRON 4 MG/2 ML VIAL IVP STA (02:23)
[2021-11-29] MEDS ORDERED: SODIUM CHLORIDE 0.9% 1,000 ML IV STA (02:23)
[2021-11-29] MEDS ORDERED: METOCLOPRAMIDE 5 MG/ML 2 ML VIAL IVP STA (02:25)
[2021-11-29] MEDS ORDERED: DEXAMETHASONE SOD PHOSPHATE 10 MG/ML 1 ML VIAL IVP STA (02:25)
[2021-11-29 03:23] LABS: ALT 38 U/L (4-34); AST 50 U/L (14-36); African American GFR (CKD) >90 (>60 ml/min/1.73 sqM); Albumin 4.6 g/dL (3.5-5.0); Alkaline Phosphatase 55 U/L (38-126); Anion Gap 13 mmol/L; Blood Urea Nitrogen 11 mg/dL (7-17); Calcium 9.2 mg/dL (8.4-10.2); Carbon Dioxide 20 mmol/L (22-30); Chloride 103 mmol/L (98-107); Glucose 111 mg/dL (74-99); Non-African American GFR(CKD) 87 (>60 ml/min/1.73 sqM); Sodium 136 mmol/L (137-145); Total Bilirubin 0.6 mg/dL (0.2-1.3)
[2021-11-29 03:52] LABS: Basophils % (A) 1 %; Eosinophils # (A) 0.5 k/uL (0-0.7); Eosinophils % (A) 5 %; HCT 38.2 % (34.0-46.0); Lymphocytes # (A) 1.4 k/uL (1.0-4.8); Lymphocytes % (A) 16 %; MCH 29.6 pg (25.0-35.0); MCHC 34.1 g/dL (31.0-37.0); MCV 86.8 fL (80.0-100.0); Mean Platelet Volume 7.6; Monocytes # (A) 0.4 k/uL (0-1.0); Monocytes % (A) 5 %; Neutrophils # (A) 6.5 k/uL (1.3-7.7); Neutrophils % (A) 72 %; Platelet Count 292 k/uL (150-450); RDW 13.2 % (11.5-15.5)
[2021-11-29 03:52] LABS: Potassium 4.3 mmol/L (3.5-5.1)
[2021-11-29 03:56] LABS: Appearance,Urine Clear (Clear); Bilirubin,Urine Negative (Negative); Blood,Urine Negative (Negative); Color,Urine Yellow; Glucose,Urine (UA) Negative (Negative); Ketones,Urine Negative (Negative); Leukocyte Esterase,Urine Negative (Negative); Nitrite,Urine Negative (Negative); Protein,Urine Trace (Negative); Urobilinogen,Urine <2.0 mg/dL (<2.0)
[2021-11-29] MEDS ORDERED: ONDANSETRON 4 MG ODT STARTER PACK 2 TAB BTL PO STA (04:28)
--- NOTE | 2021-11-29 04:31 | ED ---
Nausea/Vomiting/Diarrhea HPI - General Chief complaint: Nausea/Vomiting/Diarrhea Stated complaint: Dizziness, nausea Time Seen by Provider: 11/29/21 02:23 Source: patient, RN notes reviewed Mode of arrival: ambulatory - History of Present Illness Initial comments: This is a 31-year-old female who presents to the emergency department for dizziness. States that over the last day, she has had dizziness with positional changes. Denotes a room spinning sensation. Also has associated nausea. She had 1 episode of vomiting when she came here today. Denies any chest pain or shortness of breath. Denies any fevers, chills, sore throat, cough, dyspnea, chest pain, palp itations, abdominal pain, nausea, vomiting, diarrhea, back pain, or headaches. MD complaint: nausea, vomiting Associated Abdominal Pain: No - Related Data Previous Rx's Medication Instructions Recorded Omeprazole [PriLOSEC] 20 mg PO AC-BRKFST #14 cap 08/01/20 Meclizine [Antivert] 25 mg PO TID PRN #20 tab 11/29/21 Metoclopramide [Reglan] 10 mg PO Q6H PRN #30 tab 11/29/21 Allergies Allergy/AdvReac Type Severity Reaction Status Date / Time amoxicillin Allergy Rash/Hives Verified 11/29/21 02:22 Review of Systems ROS Statement: Those systems with pertinent positive or pertinent negative responses have been documented in the HPI. ROS Other: All systems not noted in ROS Statement are negative. Past Medical History Past Medical History: Asthma Additional Past Medical History / Comment(s): chronic back issues History of Any Multi-Drug Resistant Organisms: MRSA Date of last positivie culture/infection: 10/2014 MDRO Source:: right arm Past Surgical History: Section, Cholecystectomy, Tubal Ligation Additional Past Surgical History / Comment(s): laser treatment for genital warts Past Psychological History: No Psychological Hx Reported Smoking Status: Former smoker Past Alcohol Use History: Rare Past Drug Use History: Marijuana General Exam General appearance: alert, in no apparent distress Head exam: Present: atraumatic, normocephalic, normal inspection Eye exam: Present: normal appearance, PERRL, EOMI. Absent: scleral icterus, conjunctival injection, periorbital swelling ENT exam: Present: normal exam, mucous membranes moist, TM's normal bilaterally, normal external ear exam Neck exam: Present: normal inspection. Absent: tenderness, meningismus, lymphadenopathy Respiratory exam: Present: normal lung sounds bilaterally. Absent: respiratory distress, wheezes, rales, rhonchi, stridor Cardiovascular Exam: Present: regular rate, normal rhythm, normal heart sounds. Absent: systolic murmur, diastolic murmur, rubs, gallop, clicks Neurological exam: Present: alert, oriented X3, CN II-XII intact Psychiatric exam: Present: normal affect, normal mood Skin exam: Present: warm, dry, intact, normal color. Absent: rash Course Vital Signs 11/29/21 11/29/21 02:18 04:43 Temperature 98.3 F 98.3 F Pulse Rate 94 79 Respiratory 17 19 Rate Blood Pressure 134/88 109/81 O2 Sat by Pulse 97 98 Oximetry Medical Decision Making - Medical Decision Making This is a 31-year-old female presents to the emergency department for dizziness, nausea, and vomiting. Lab work and urinalysis obtained, revealing no actionable findings. Patient was given IV fluids, Zofran, Reglan, Toradol, and Decadron. She notes significant improvement in symptoms following medication administration. The dizziness with the room spinning sensation and associated nausea/vomiting are consistent with vertigo. Patient was educated on vertigo. Prescription for Antivert and Reglan was provided. Advised that Reglan will help with the dizziness as well as nausea and vomiting. She was also told that the Antivert may be sedating and is best taken at night or if she knows that she will be home all day. Also recommended she look up the half somersault maneuver by Dr. Divya Whatley for additional management of vertigo symptoms. Return precautions reviewed in depth, the patient is instructed to return to the emergency department with any new, worsening, or concerning symptoms. Patient verbalized understanding. This case was discussed in detail with the attending ED physician. Presentation, findings, and treatment plan discussed in detail as well. - Lab Data Result diagrams: 11/29/21 03:41 11/29/21 02:50 Lab Results 11/29/21 11/29/21 11/29/21 Range/Units 02:50 03:20 03:20 WBC (3.8-10.6) k/uL RBC (3.80-5.40) m/uL Hgb (11.4-16.0) gm/dL Hct (34.0-46.0) % MCV (80.0-100.0) fL MCH (25.0-35.0) pg MCHC (31.0-37.0) g/dL RDW (11.5-15.5) % Plt Count (150-450) k/uL MPV Neutrophils % % Lymphocytes % % Monocytes % % Eosinophils % % Basophils % % Neutrophils # (1.3-7.7) k/uL Lymphocytes # (1.0-4.8) k/uL Monocytes # (0-1.0) k/uL Eosinophils # (0-0.7) k/uL Basophils # (0-0.2) k/uL Sodium 136 L (137-145) mmol/L Potassium 4.3 (3.5-5.1) mmol/L Chloride 103 (98-107) mmol/L Carbon Dioxide 20 L (22-30) mmol/L Anion Gap 13 mmol/L BUN 11 (7-17) mg/dL Creatinine 0.89 (0.52-1.04) mg/dL Est GFR (CKD-EPI)AfAm >90 (>60 ml/min/1.73 sqM) Est GFR (CKD-EPI)NonAf 87 (>60 ml/min/1.73 sqM) Glucose 111 H (74-99) mg/dL Calcium 9.2 (8.4-10.2) mg/dL Total Bilirubin 0.6 (0.2-1.3) mg/dL AST 50 H (14-36) U/L ALT 38 H (4-34) U/L Alkaline Phosphatase 55 (38-126) U/L Total Protein 8.0 (6.3-8.2) g/dL Albumin 4.6 (3.5-5.0) g/dL Urine Color Yellow Urine Appearance Clear (Clear) Urine pH 6.0 (5.0-8.0) Ur Specific [place] 1.020 (1.001-1.035) Urine Protein Trace H (Negative) Urine Glucose (UA) Negative (Negative) Urine Ketones Negative (Negative) Urine Blood Negative (Negative) Urine Nitrite Negative (Negative) Urine Bilirubin Negative (Negative) Urine Urobilinogen <2.0 (<2.0) mg/dL Ur Leukocyte Esterase Negative (Negative) Urine HCG, Qual (Not Detectd) Coronavirus (PCR) Not Detected (Not Detectd) 11/29/21 11/29/21 Range/Units 03:20 03:41 WBC 9.0 (3.8-10.6) k/uL RBC 4.40 (3.80-5.40) m/uL Hgb 13.0 (11.4-16.0) gm/dL Hct 38.2 (34.0-46.0) % MCV 86.8 (80.0-100.0) fL MCH 29.6 (25.0-35.0) pg MCHC 34.1 (31.0-37.0) g/dL RDW 13.2 (11.5-15.5) % Plt Count 292 (150-450) k/uL MPV 7.6 Neutrophils % 72 % Lymphocytes % 16 % Monocytes % 5 % Eosinophils % 5 % Basophils % 1 % Neutrophils # 6.5 (1.3-7.7) k/uL Lymphocytes # 1.4 (1.0-4.8) k/uL Monocytes # 0.4 (0-1.0) k/uL Eosinophils # 0.5 (0-0.7) k/uL Basophils # 0.0 (0-0.2) k/uL Sodium (137-145) mmol/L Potassium (3.5-5.1) mmol/L Chloride (98-107) mmol/L Carbon Dioxide (22-30) mmol/L Anion Gap mmol/L BUN (7-17) mg/dL Creatinine (0.52-1.04) mg/dL Est GFR (CKD-EPI)AfAm (>60 ml/min/1.73 sqM) Est GFR (CKD-EPI)NonAf (>60 ml/min/1.73 sqM) Glucose (74-99) mg/dL Calcium (8.4-10.2) mg/dL Total Bilirubin (0.2-1.3) mg/dL AST (14-36) U/L ALT (4-34) U/L Alkaline Phosphatase (38-126) U/L Total Protein (6.3-8.2) g/dL Albumin (3.5-5.0) g/dL Urine Color Urine Appearance (Clear) Urine pH (5.0-8.0) Ur Specific [place] (1.001-1.035) Urine Protein (Negative) Urine Glucose (UA) (Negative) Urine Ketones (Negative) Urine Blood (Negative) Urine Nitrite (Negative) Urine Bilirubin (Negative) Urine Urobilinogen (<2.0) mg/dL Ur Leukocyte Esterase (Negative) Urine HCG, Qual Not Detected (Not Detectd) Coronavirus (PCR) (Not Detectd) Disposition Clinical Impression: BPPV (benign paroxysmal positional vertigo) Disposition: HOME SELF-CARE Instructions (If sedation given, give patient instructions): Benign Paroxysmal Positional Vertigo (ED), Dizziness (ED) Additional Instructions: Return to the emergency department with any new, worsening, or concerning symptoms. The Zofran can be taken up to every 8 hours as needed for nausea and vomiting. Take the Reglan or Antivert if you feel dizzy, the Antivert is more sedating and is best taken at night or if you know that you will be home all day. The Reglan will also treat nausea and vomiting. You can also look up the half somersault maneuver online, by Dr. Divya Whatley, for additional management of vertigo symptoms. Prescriptions: Meclizine [Antivert] 25 mg PO TID PRN #20 tab PRN Reason: Vertigo Metoclopramide [Reglan] 10 mg PO Q6H PRN #30 tab PRN Reason: Nausea And Vomiting Is patient prescribed a controlled substance at d/c from ED?: No Referrals: Shruthi Horta MD [Primary Care Provider] - 1-2 days
[2021-11-29 04:44] VITALS: BP 109/81; PULSE 79; RESP 19
== END 2021-11-29 04:48 | disposition home or self-care (01) ==
LOC: EC 02:15
DX: H81.10 Benign paroxysmal vertigo, unspecified ear (principal); R11.2 Nausea with vomiting, unspecified; R10.9 Unspecified abdominal pain; J45.909 Unspecified asthma, uncomplicated; Z20.822 Contact with and (suspected) exposure to COVID-19; Z87.891 Personal history of nicotine dependence; Z88.0 Allergy status to penicillin
CPT/HCPCS: 36415; 80053; 85025; 81003; 81025; 87635; 99284; 96374; 96375; 96361; J1100; J2765; J2405; J1885; S0119

== ENCOUNTER 2023-04-28 18:03 | Emergency (ER) | payer OTHER ==
--- NOTE | 2023-04-28 18:29 | ED ---
General Adult HPI - General Source: patient, RN notes reviewed Mode of arrival: ambulatory Limitations: no limitations <Gaby Hardy - Last Filed: 04/28/23 18:28> - History of Present Illness -: days(s) (10) Radiation: non-radiation Severity scale (1-10): 7 Quality: sharp Consistency: intermittent, colicky Improves with: none Worsens with: none Associated Symptoms: denies other symptoms Treatments Prior to Arrival: none <Avtar Freeman - Last Filed: 05/06/23 11:25> - General Chief complaint: Abdominal Pain Stated complaint: abd pain Time Seen by Provider: 04/28/23 18:28 - History of Present Illness Initial comments: 33-year-old female presents to the emergency department for evaluation of right- sided abdominal/chest wall pain. She states that this started 10 days ago when she woke up in the morning. She states that the pain is worse when she bends to the right but she has no other limitations. She denies recent fever, chills, n ausea, vomiting, shortness of breath. Denies any injury. Reports history of asthma. (Gaby Hardy) This is a 33-year-old female with nonspecific right-sided abdominal pain and chest wall pain that has been persistent for some days now. She has had persistent pain here in the ER but no shortness of breath (Avtar Freeman) - Related Data Home Medications Medication Instructions Recorded Confirmed Albuterol Nebulized [Ventolin 2.5 mg INHALATION RT-QID PRN 04/28/23 04/28/23 Nebulized] Albuterol Sulfate [Albuterol 2 puff INHALATION RT-Q6H PRN 04/28/23 04/28/23 Sulfate Hfa] Budesonide [Pulmicort] 0.5 mg INHALATION RT-BID PRN 04/28/23 04/28/23 Budesonide/Formoterol Fumarate 2 puff INHALATION RT-BID 04/28/23 04/28/23 [Symbicort 160-4.5 Mcg Inhaler] Ibuprofen [Motrin] 800 mg PO Q8H PRN 04/28/23 04/28/23 Nystatin [Nystatin Oral Susp] 500,000 unit PO QID 04/28/23 04/28/23 Omalizumab [Xolair] 300 mg SQ Q14D 04/28/23 04/28/23 Allergies Allergy/AdvReac Type Severity Reaction Status Date / Time amoxicillin Allergy Rash/Hives Verified 04/28/23 22:18 Sulfa (Sulfonamide Allergy Rash/Hives Verified 04/28/23 22:18 Antibiotics) Review of Systems ROS Other: All systems not noted in ROS Statement are negative. <Gaby Hardy - Last Filed: 04/28/23 18:28> ROS Other: All systems not noted in ROS Statement are negative. <Avtar Freeman - Last Filed: 05/06/23 11:25> ROS Statement: Those systems with pertinent positive or pertinent negative responses have been documented in the HPI. Past Medical History Past Medical History: Asthma Additional Past Medical History / Comment(s): chronic back issues History of Any Multi-Drug Resistant Organisms: MRSA Date of last positivie culture/infection: 10/2014 MDRO Source:: right arm Past Surgical History: Section, Cholecystectomy, Tubal Ligation, Uterine Ablation Additional Past Surgical History / Comment(s): laser treatment for genital warts Past Psychological History: No Psychological Hx Reported Smoking Status: Former smoker Past Alcohol Use History: Rare Past Drug Use History: Marijuana <Gaby Hardy - Last Filed: 04/28/23 18:28> General Exam Limitations: no limitations <Gaby Hardy - Last Filed: 04/28/23 18:28> General appearance: alert, in no apparent distress Head exam: Present: atraumatic, normocephalic, normal inspection Eye exam: Present: normal appearance, PERRL, EOMI. Absent: scleral icterus, conjunctival injection, periorbital swelling ENT exam: Present: normal exam, mucous membranes moist Neck exam: Present: normal inspection. Absent: tenderness, meningismus, lymphadenopathy Respiratory exam: Present: normal lung sounds bilaterally. Absent: respiratory distress, wheezes, rales, rhonchi, stridor Cardiovascular Exam: Present: regular rate, normal rhythm, normal heart sounds. Absent: systolic murmur, diastolic murmur, rubs, gallop, clicks GI/Abdominal exam: Present: soft, normal bowel sounds. Absent: distended, tenderness, guarding, rebound, rigid Extremities exam: Present: normal inspection, full ROM, normal capillary refill. Absent: tenderness, pedal edema, joint swelling, calf tenderness Back exam: Present: normal inspection Neurological exam: Present: alert, oriented X3, CN II-XII intact Psychiatric exam: Present: normal affect, normal mood Skin exam: Present: warm, dry, intact, normal color. Absent: rash <Avtar Freeman - Last Filed: 05/06/23 11:25> - General Exam Comments Initial Comments: Visual Physical Exam Vital signs reviewed General: Well-appearing, nontoxic, no acute distress. Head: Normocephalic, atraumatic Eyes: PERRLA, EOMI ENT: Airway patent Chest: Nonlabored breathing Skin: No visual rash, normal skin tone Neuro: Alert and oriented 3 Musculoskeletal: No gross abnormalities (Gaby Hardy) Course <Avtar Freeman - Last Filed: 05/06/23 11:25> Vital Signs 04/28/23 18:11 Temperature 98 F Pulse Rate 85 Respiratory 16 Rate Blood Pressure 178/122 O2 Sat by Pulse 100 Oximetry - Reevaluation(s) Reevaluation #1: Medical records reviewed (Avtar Freeman) Reevaluation #2: Patient's symptoms improved (Avtar Freeman) Reevaluation #3: Patient informed of results questions answered (Avtar Freeman) Reevaluation #4: Was pt. sent in by a medical professional or institution (, PA, ANGLE BENDER, urgent care, hospital, or halfway...) When possible be specific @ -no Did you speak to anyone other than the patient for history (EMS, parent, family, police, friend...)? What history was obtained from this source @ -no Did you review nursing and triage notes (agree or disagree)? Why? @ -agree Are old charts reviewed (outside hosp., previous admission, EMS record, old EKG, old radiological studies, urgent care reports/EKG's, halfway records)? Report findings @ -yes Differential Diagnosis (chest pain, altered mental status, abdominal pain women, abdominal pain men, vaginal bleeding, weakness, fever, dyspnea, syncope, headache, dizziness, GI bleed, back pain, seizure, CVA, palpatations, mental health, musculoskeletal)? @ -prior EKG interpreted by me (3pts min.). @ -no X-rays interpreted by me (1pt min.). @ -yes negative for acute disease CT interpreted by me (1pt min.). @ -no U/S interpreted by me (1pt. min.). @ -yes negative for acute disease What testing was considered but not performed or refused? (CT, X-rays, U/S, labs)? Why? @ -none What meds were considered but not given or refused? Why? @ -none Did you discuss the management of the patient with other professionals (professionals i.e. DrKarlee, PA, ANGLE BENDER, lab, RT, psych nurse, high school social studies teacher, banking analyst, teacher, front desk officer, heel caser)? Give summary @ -no Was smoking cessation discussed for >3mins.? @ -no Was critical care preformed (if so, how long)? @ -no Were there social determinants of health that impacted care today? How? (Homelessness, low income, unemployed, alcoholism, drug addiction, transportation, low edu. Level, literacy, decrease access to med. care, prison, rehab)? @ -none Was there de-escalation of care discussed even if they declined (Discuss DNR or withdrawal of care, Hospice)? DNR status @ -no What co-morbidities impacted this encounter? (DM, HTN, Smoking, COPD, CAD, Cancer, CVA, ARF, Chemo, Hep., AIDS, mental health diagnosis, sleep apnea, morbid obesity)? @ -none Was patient admitted / discharged? Hospital course, mention meds given and route, prescriptions, significant lab abnormalities, going to OR and other perti nemarian info. @ -33 female with nonspecific chest wall and abdominal pain here in the ER although she does have persistent pain no acute findings were found, patient can be discharged home Discharge Undiagnosed new problem with uncertain prognosis? @ -no Drug Therapy requiring intensive monitoring for toxicity (Heparin, Nitro, Insulin, Cardizem)? @ -no Were any procedures done? @ -no Diagnosis/symptom? @ -Abdominal pain, right-sided chest wall pain Acute, or Chronic, or Acute on Chronic? @ -Acute Uncomplicated (without systemic symptoms) or Complicated (systemic symptoms)? @ -Complicated Side effects of treatment? @ -no Exacerbation, Progression, or Severe Exacerbation? @ -exacerbation Poses a threat to life or bodily function? How? (Chest pain, [place], [place], pneumonia, PE, COPD, DKA, ARF, appy, cholecystitis, CVA, Diverticulitis, Homicidal, Suicidal, threat to staff... and all critical care pts) @ -no (Avtar Freeman) Reevaluation #5: Differential Chest Pain: Stable Angina, Unstable Angina, STEMI, NSTEMI Aortic Dissection, Pneumothorax, Musculoskeletal, Esophageal Spasm GERD, Cholecystitis, Pancreatitis, Zoster, this is not meant to be an all-inclusive list. Differential Abdominal Pain Women: Appendicitis, Cholecystitis, diverticulosis, ischemic bowel, pancreatitis, hepatitis, UTI, gastroenteritis, AAA, incarcerated hernia, bowel obstruction, constipation, inflammatory bowel, hepatitis, peptic ulcer disease, splenic infarction, perforated viscus, vulvitis, ovarian torsion, PID, kidney stone, placenta abruption, this is not meant to be an all-inclusive list (Avtar Freeman) Medical Decision Making <Gaby Hardy - Last Filed: 04/28/23 18:28> - Lab Data Result diagrams: 04/28/23 21:02 04/28/23 21:02 - Radiology Data Radiology results: report reviewed (X-ray and ultrasound abdomen are negative for acute disease), image reviewed <Avtar Freeman - Last Filed: 05/06/23 11:25> - Medical Decision Making Quick note performed by Gaby Hardy PA-C (Gaby Hardy) 33 female with nonspecific right-sided abdominal pain flank pain chest pain. Has persistent pain here in the emergency department but no acute findings, symptoms are improved and patient can be discharged home (Avtar Freeman) - Lab Data Lab Results 04/28/23 04/28/23 04/28/23 Range/Units 21:02 21:02 21:02 WBC 11.0 H (3.8-10.6) k/uL RBC 4.39 (3.80-5.40) m/uL Hgb 13.2 (11.4-16.0) gm/dL Hct 37.2 (34.0-46.0) % MCV 84.8 (80.0-100.0) fL MCH 30.1 (25.0-35.0) pg MCHC 35.5 (31.0-37.0) g/dL RDW 13.3 (11.5-15.5) % Plt Count 327 (150-450) k/uL MPV 7.4 Neutrophils % 57 % Lymphocytes % 31 % Monocytes % 4 % Eosinophils % 6 % Basophils % 1 % Neutrophils # 6.3 (1.3-7.7) k/uL Lymphocytes # 3.4 (1.0-4.8) k/uL Monocytes # 0.5 (0-1.0) k/uL Eosinophils # 0.6 (0-0.7) k/uL Basophils # 0.1 (0-0.2) k/uL Sodium 138 (137-145) mmol/L Potassium 3.6 (3.5-5.1) mmol/L Chloride 107 (98-107) mmol/L Carbon Dioxide 22 (22-30) mmol/L Anion Gap 9 mmol/L BUN 13 (7-17) mg/dL Creatinine 0.81 (0.52-1.04) mg/dL Est GFR (CKD-EPI)AfAm >90 (>60 ml/min/1.73 sqM) Est GFR (CKD-EPI)NonAf >90 (>60 ml/min/1.73 sqM) Glucose 98 (74-99) mg/dL Plasma Lactic Acid Sathish 0.8 (0.7-2.0) mmol/L Calcium 9.2 (8.4-10.2) mg/dL Total Bilirubin 0.5 (0.2-1.3) mg/dL AST 33 (14-36) U/L ALT 44 H (4-34) U/L Alkaline Phosphatase 59 (38-126) U/L Total Protein 7.8 (6.3-8.2) g/dL Albumin 4.6 (3.5-5.0) g/dL Amylase 71 (30-110) U/L Lipase 89 (23-300) U/L Disposition <Gaby Hardy - Last Filed: 04/28/23 18:28> Is patient prescribed a controlled substance at d/c from ED?: No Time of Disposition: 22:15 <Avtar Freeman - Last Filed: 05/06/23 11:25> Clinical Impression: Rib pain on right side, Right-sided chest pain Disposition: HOME SELF-CARE Condition: Good Instructions (If sedation given, give patient instructions): Chest Pain (ED) Referrals: Shruthi Horta MD [Primary Care Provider] - 1-2 days
[2023-04-28 18:36] VITALS: BP 178/122; PULSE 85; RESP 16; TEMP 98
[2023-04-28 21:07] LABS: Basophils # (A) 0.1 k/uL (0-0.2); Basophils % (A) 1 %; Eosinophils # (A) 0.6 k/uL (0-0.7); Eosinophils % (A) 6 %; HCT 37.2 % (34.0-46.0); HGB 13.2 gm/dL (11.4-16.0); Lymphocytes # (A) 3.4 k/uL (1.0-4.8); Lymphocytes % (A) 31 %; MCH 30.1 pg (25.0-35.0); MCHC 35.5 g/dL (31.0-37.0); MCV 84.8 fL (80.0-100.0); Mean Platelet Volume 7.4; Monocytes # (A) 0.5 k/uL (0-1.0); Monocytes % (A) 4 %; Neutrophils # (A) 6.3 k/uL (1.3-7.7); Neutrophils % (A) 57 %; Platelet Count 327 k/uL (150-450); RBC 4.39 m/uL (3.80-5.40); RDW 13.3 % (11.5-15.5)
[2023-04-28 21:17] LABS: ALT 44 U/L (4-34); AST 33 U/L (14-36); African American GFR (CKD) >90 (>60 ml/min/1.73 sqM); Albumin 4.6 g/dL (3.5-5.0); Alkaline Phosphatase 59 U/L (38-126); Amylase 71 U/L (30-110); Anion Gap 9 mmol/L; Blood Urea Nitrogen 13 mg/dL (7-17); Calcium 9.2 mg/dL (8.4-10.2); Carbon Dioxide 22 mmol/L (22-30); Chloride 107 mmol/L (98-107); Glucose 98 mg/dL (74-99); Lipase 89 U/L (23-300); Non-African American GFR(CKD) >90 (>60 ml/min/1.73 sqM); Potassium 3.6 mmol/L (3.5-5.1); Sodium 138 mmol/L (137-145); Total Bilirubin 0.5 mg/dL (0.2-1.3); Total Protein 7.8 g/dL (6.3-8.2)
[2023-04-28] MEDS ORDERED: traMADol 50 MG TAB PO STA (22:13)
[2023-04-28] MEDS: dexAMETHasone 2 MG TAB PO STA (22:28)
[2023-04-28] MEDS: IBUPROFEN 600 MG STARTER PACK 4 TAB BTL PO STA (22:29)
[2023-04-28] MEDS: KETOROLAC 15 MG/ML 1 ML VIAL IM STA (22:30)
[2023-04-28] MEDS: traMADol 50 MG STARTER PACK 3 TAB BTL PO STA (22:39)
--- NOTE | 2023-04-28 23:07 | XR ---
EXAMINATION TYPE: XR chest 2V DATE OF EXAM: 04/28/2023 COMPARISON: Chest x-ray November 17, 2019 HISTORY: Chest and abdominal pain TECHNIQUE: Frontal and lateral views of the chest are obtained. FINDINGS: There is no focal air space opacity, pleural effusion, or pneumothorax seen. The cardiac silhouette size is stable and within normal limits. The osseous structures are intact. Asymmetric d iminished size to overlying left breast versus right breast is redemonstrated. IMPRESSION: No acute cardiopulmonary process. No significant change from prior.
--- NOTE | 2023-04-28 23:56 | US ---
EXAMINATION TYPE: US abdomen limited DATE OF EXAM: 04/28/2023 COMPARISON: CT abdomen and pelvis 08/01/20 CLINICAL INDICATION: Female, 33 years old with history of RUQ pain; RUQ pain x 10 days. Cholecystecto my in 2011 TECHNIQUE: Multiple sonographic images of the right upper quadrant are obtained. FINDINGS: EXAM MEASUREMENTS: Liver Length: 17.2 cm Gallbladder Wall: Surgically absent CBD: 0.41 cm Right Kidney: 10.9 x 5 x 4.6 cm DATABASE MODELER NOTES: Pancreas: Limited due to bowel gas Liver: Heterogeneously coarsened echotexture with some loss of internal architecture. No focal lesio n detected. Gallbladder: Surgically absent Evidence for sonographic Cohen's sign: No CBD: wnl Right Kidney: wnl IMPRESSION: 1. Limited evaluation of the pancreas due to bowel gas. 2. Status post cholecystectomy. 3. No biliary ductal dilatation. 4. Heterogeneously echogenic liver suggesting diffuse liver disease, which statistically most often is on the basis of hepatic steatosis.
== END 2023-04-28 22:42 | disposition home or self-care (01) ==
LOC: EC 18:03
DX: R07.81 Pleurodynia (principal); R07.89 Other chest pain; J45.909 Unspecified asthma, uncomplicated; F12.90 Cannabis use, unspecified, uncomplicated; Z87.891 Personal history of nicotine dependence; Z88.2 Allergy status to sulfonamides; Z88.0 Allergy status to penicillin
CPT/HCPCS: 36415; 80053; 82150; 83605; 83690; 85025; 71046; 76705; 99285; 96372; J8540; J1885

== ENCOUNTER 2023-06-15 16:05 | Emergency (ER) | payer OTHER ==
[2023-06-15] MEDS: IPRATROPIUM-ALBUTEROL 3 ML NEB INHALATION STA ×2 (16:58→18:55)
[2023-06-15] MEDS: methylPREDNISolone SOD SUCCI 125 MG/2 ML VIAL IV STA (17:24)
[2023-06-15] MEDS: MAGNESIUM SULFATE-D5W PMX 1 GM in DEXTROSE/WATER 1 100ML.BAG IVPB STA (17:26)
[2023-06-15 17:44] LABS: Basophils # (A) 0.1 k/uL (0-0.2); Basophils % (A) 1 %; Eosinophils # (A) 1.1 k/uL (0-0.7); Eosinophils % (A) 10 %; HCT 38.9 % (34.0-46.0); HGB 13.7 gm/dL (11.4-16.0); Lymphocytes # (A) 2.6 k/uL (1.0-4.8); Lymphocytes % (A) 25 %; MCH 29.8 pg (25.0-35.0); MCHC 35.1 g/dL (31.0-37.0); MCV 84.7 fL (80.0-100.0); Mean Platelet Volume 7.5; Monocytes # (A) 0.4 k/uL (0-1.0); Monocytes % (A) 4 %; Neutrophils % (A) 58 %; Platelet Count 285 k/uL (150-450); RBC 4.59 m/uL (3.80-5.40); WBC 10.2 k/uL (3.8-10.6)
--- NOTE | 2023-06-15 18:00 | XR ---
EXAMINATION TYPE: XR chest 2V DATE OF EXAM: 06/15/2023 5:36 PM CLINICAL INDICATION:Female, 33 years old with history of difficulty breathing; COMPARISON: Chest radiographs from 04/28/2023 TECHNIQUE: XR chest 2V Frontal and lateral views of the chest. FINDINGS: Lungs/Pleura: There is no evidence of pleural effusion, focal consolidation, or pneumothorax. Pulmonary vascularity: Unremarkable. Heart/mediastinum: Cardiomediastinal silhouette is unremarkable. Musculoskeletal: No acute osseous pathology. IMPRESSION: No acute cardiopulmonary disease/process.
[2023-06-15 18:01] LABS: ALT 36 U/L (4-34); AST 34 U/L (14-36); African American GFR (CKD) >90 (>60 ml/min/1.73 sqM); Albumin 4.1 g/dL (3.5-5.0); Alkaline Phosphatase 64 U/L (38-126); Anion Gap 10 mmol/L; Blood Urea Nitrogen 13 mg/dL (7-17); Calcium 9.1 mg/dL (8.4-10.2); Carbon Dioxide 19 mmol/L (22-30); Chloride 109 mmol/L (98-107); Glucose 103 mg/dL (74-99); Non-African American GFR(CKD) >90 (>60 ml/min/1.73 sqM); Potassium 3.8 mmol/L (3.5-5.1); Sodium 138 mmol/L (137-145); Total Bilirubin 0.5 mg/dL (0.2-1.3); Total Protein 7.2 g/dL (6.3-8.2)
[2023-06-15 18:26] VITALS: RESP 18
--- NOTE | 2023-06-15 18:32 | ED ---
SOB HPI - General Chief Complaint: Shortness of Breath Stated Complaint: SOB Time Seen by Provider: 06/15/23 16:20 Source: patient Mode of arrival: ambulatory Limitations: no limitations - History of Present Illness Initial Comments: 33-year-old female with past medical history of asthma who presents emergency department reporting shortness of breath. States that she lost her health insurance and therefore no longer has a primary care doctor. She does not have any unexpired albuterol at home. She also used to take a One-A-Day inhaler however since she lost her insurance, does not have any of her medications. She does admit to wheezing. She took 2 of the treatments before coming in. She denies having to be hospitalized for her breathing. Denies being on life support. Does not take steroids daily. Denies any upper respiratory symptoms to include shortness of breath, headaches, body aches, sore throat or ear pain. No other alleviating, precipitating or modifying factors - Related Data Home Medications Medication Instructions Recorded Confirmed Albuterol Sulfate [Albuterol 2 puff INHALATION RT-Q6H PRN 04/28/23 06/16/23 Sulfate Hfa] Budesonide [Pulmicort] 0.5 mg INHALATION RT-BID PRN 04/28/23 06/16/23 Budesonide/Formoterol Fumarate 2 puff INHALATION RT-BID 04/28/23 06/16/23 [Symbicort 160-4.5 Mcg Inhaler] Omalizumab [Xolair] 300 mg SQ Q14D 04/28/23 06/16/23 Albuterol Nebulized [Ventolin 2.5 mg INHALATION RT-Q4H PRN 06/16/23 06/16/23 Nebulized] Previous Rx's Medication Instructions Recorded Acetaminophen Tab [Tylenol] 650 mg PO Q6HR PRN tab 06/19/23 Levofloxacin [Levaquin] 750 mg PO DAILY@1300 #4 tab 06/19/23 predniSONE [Deltasone] See Rx Instructions .ROUTE 06/19/23 .COMPLEX #15 tab Allergies Allergy/AdvReac Type Severity Reaction Status Date / Time amoxicillin Allergy Rash/Hives Verified 06/16/23 12:24 Sulfa (Sulfonamide Allergy Rash/Hives Verified 06/16/23 12:24 Antibiotics) Review of Systems ROS Statement: Those systems with pertinent positive or pertinent negative responses have been documented in the HPI. ROS Other: All systems not noted in ROS Statement are negative. Past Medical History Past Medical History: Asthma Additional Past Medical History / Comment(s): chronic back issues History of Any Multi-Drug Resistant Organisms: MRSA Date of last positivie culture/infection: 10/2014 MDRO Source:: right arm Past Surgical History: Section, Cholecystectomy, Tubal Ligation, Uterine Ablation Additional Past Surgical History / Comment(s): laser treatment for genital warts Past Psychological History: No Psychological Hx Reported Smoking Status: Former smoker Past Alcohol Use History: Rare Past Drug Use History: Marijuana General Exam Limitations: no limitations General appearance: alert, in no apparent distress Head exam: Present: atraumatic, normocephalic, normal inspection Eye exam: Present: normal appearance, PERRL, EOMI. Absent: scleral icterus, conjunctival injection, periorbital swelling ENT exam: Present: normal exam, mucous membranes moist Neck exam: Present: normal inspection. Absent: tenderness, meningismus, lymphadenopathy Respiratory exam: Present: wheezes. Absent: respiratory distress, rales, rhonchi, stridor Cardiovascular Exam: Present: regular rate, normal rhythm, normal heart sounds. Absent: systolic murmur, diastolic murmur, rubs, gallop, clicks GI/Abdominal exam: Present: soft, normal bowel sounds. Absent: distended, tenderness, guarding, rebound, rigid Extremities exam: Present: normal inspection, full ROM, normal capillary refill. Absent: tenderness, pedal edema, joint swelling, calf tenderness Back exam: Present: normal inspection Neurological exam: Present: alert, oriented X3, CN II-XII intact Psychiatric exam: Present: normal affect, normal mood Skin exam: Present: warm, dry, intact, normal color. Absent: rash Course Vital Signs 06/15/23 06/15/23 06/15/23 16:17 16:24 16:58 Temperature 98.3 F Pulse Rate 96 96 Respiratory 20 25 H Rate Blood Pressure 139/92 O2 Sat by Pulse 95 Oximetry 06/15/23 06/15/23 06/15/23 17:07 17:57 18:56 Temperature Pulse Rate 95 95 85 Respiratory 18 Rate Blood Pressure 133/83 O2 Sat by Pulse 96 Oximetry 06/15/23 06/15/23 19:03 19:05 Temperature 98.1 F Pulse Rate 85 87 Respiratory 18 Rate Blood Pressure 144/81 O2 Sat by Pulse 94 L Oximetry Medical Decision Making - Medical Decision Making Was pt. sent in by a medical professional or institution (ALFRED Broderick, LIQUID CHLORINE OPERATOR, urgent care, hospital, or [facility]...) When possible be specific @ -No Did you speak to anyone other than the patient for history (EMS, parent, family, police, friend...)? What history was obtained from this source @ -No Did you review nursing and triage notes (agree or disagree)? Why? @ -I reviewed and agree with nursing and triage notes Were old charts reviewed (outside hosp., previous admission, EMS record, old EKG, old radiological studies, urgent care reports/EKG's, [facility] records)? Report findings @ -No old charts were reviewed Differential Diagnosis (chest pain, altered mental status, abdominal pain women, abdominal pain men, vaginal bleeding, weakness, fever, dyspnea, syncope, headache, dizziness, GI bleed, back pain, seizure, CVA, palpatations, mental health, musculoskeletal)? @ -Differential Dyspnea: Coronary syndrome, arrhythmia, tamponade, asthma, COPD, pulmonary embolism, pneumonia, pneumothorax, pulmonary effusion, anaphylaxis, diabetic ketoacidosis, flailed chest, pulmonary contusion, diaphragmatic rupture, anemia, neuromuscular, this is not meant to be an all-inclusive list. EKG interpreted by me (3pts min.). @ -Yes and demonstrates sinus rhythm with a rate of 76. CA interval 166. QRS 93. QTc of 418. No acute ST segment elevations depressions X-rays interpreted by me (1pt min.). @ -Yes and demonstrates no acute process CT interpreted by me (1pt min.). @ -None done U/S interpreted by me (1pt. min.). @ -None done What testing was considered but not performed or refused? (CT, X-rays, U/S, labs)? Why? @ -None What meds were considered but not given or refused? Why? @ -None Did you discuss the management of the patient with other professionals (professionals i.e. ALFRED Broderick, LIQUID CHLORINE OPERATOR, lab, RT, psych nurse, professor of social work, size worker, teacher, corporate responsibility officer, mental health case manager)? Give summary @ -No Was smoking cessation discussed for >3mins.? @ -No Was critical care preformed (if so, how long)? @ -No Were there social determinants of health that impacted care today? How? (Homelessness, low income, unemployed, alcoholism, drug addiction, transportation, low edu. Level, literacy, decrease access to med. care, [facility], rehab)? @ -No Was there de-escalation of care discussed even if they declined (Discuss DNR or withdrawal of care, Hospice)? DNR status @ -No What co-morbidities impacted this encounter? (DM, HTN, Smoking, COPD, CAD, Cancer, CVA, ARF, Chemo, Hep., AIDS, mental health diagnosis, sleep apnea, morbid obesity)? @ -Asthma Was patient admitted / discharged? Hospital course, mention meds given and route, prescriptions, significant lab abnormalities, going to OR and other pertinent info. @ -Upon arrival patient was seen and evaluated in room 11. Thorough history and physical exam was performed. Patient was given a DuoNeb breathing treatment and 125 Solu-Medrol. She is also given a gram of magnesium. Patient reevaluated and continues to remain wheezy. She was given a second breathing treatment. Patient does have improvement in her wheezing at this time. She will be discharged home and placed on a course of steroids. Instructed to take the medications as directed. She must also use her inhaler or nebulizer every 4 hours. Follow-up and return for any new or worsening symptoms. Patient agrees with plan she was discharged in stable condition Undiagnosed new problem with uncertain prognosis? @ -No Drug Therapy requiring intensive monitoring for toxicity (Heparin, Nitro, Insulin, Cardizem)? @ -No Were any procedures done? @ -No Diagnosis/symptom? @ -Acute asthma exacerbation Acute, or Chronic, or Acute on Chronic? @ -Acute Uncomplicated (without systemic symptoms) or Complicated (systemic symptoms)? @ -Complicated Side effects of treatment? @ -No Exacerbation, Progression, or Severe Exacerbation? @ -Yes Poses a threat to life or bodily function? How? (Chest pain, [place], [place], pneumonia, PE, COPD, DKA, ARF, appy, cholecystitis, CVA, Diverticulitis, Homicidal, Suicidal, threat to staff... and all critical care pts) @ -No - Lab Data Result diagrams: 06/15/23 17:30 06/15/23 17:30 Lab Results 06/15/23 06/15/23 Range/Units 17:30 17:30 WBC 10.2 (3.8-10.6) k/uL RBC 4.59 (3.80-5.40) m/uL Hgb 13.7 (11.4-16.0) gm/dL Hct 38.9 (34.0-46.0) % MCV 84.7 (80.0-100.0) fL MCH 29.8 (25.0-35.0) pg MCHC 35.1 (31.0-37.0) g/dL RDW 13.0 (11.5-15.5) % Plt Count 285 (150-450) k/uL MPV 7.5 Neutrophils % 58 % Lymphocytes % 25 % Monocytes % 4 % Eosinophils % 10 % Basophils % 1 % Neutrophils # 6.0 (1.3-7.7) k/uL Lymphocytes # 2.6 (1.0-4.8) k/uL Monocytes # 0.4 (0-1.0) k/uL Eosinophils # 1.1 H (0-0.7) k/uL Basophils # 0.1 (0-0.2) k/uL Sodium 138 (137-145) mmol/L Potassium 3.8 (3.5-5.1) mmol/L Chloride 109 H (98-107) mmol/L Carbon Dioxide 19 L (22-30) mmol/L Anion Gap 10 mmol/L BUN 13 (7-17) mg/dL Creatinine 0.79 (0.52-1.04) mg/dL Est GFR (CKD-EPI)AfAm >90 (>60 ml/min/1.73 sqM) Est GFR (CKD-EPI)NonAf >90 (>60 ml/min/1.73 sqM) Glucose 103 H (74-99) mg/dL Calcium 9.1 (8.4-10.2) mg/dL Total Bilirubin 0.5 (0.2-1.3) mg/dL AST 34 (14-36) U/L ALT 36 H (4-34) U/L Alkaline Phosphatase 64 (38-126) U/L Total Protein 7.2 (6.3-8.2) g/dL Albumin 4.1 (3.5-5.0) g/dL Disposition Clinical Impression: Asthma exacerbation Disposition: HOME SELF-CARE Condition: Stable Instructions (If sedation given, give patient instructions): Asthma (ED) Additional Instructions: Please take the prednisone starting tomorrow. Use the albuterol treatments every 4 hours. Return for any new or worsening symptoms Is patient prescribed a controlled substance at d/c from ED?: No Referrals: None,Stated [Primary Care Provider] - 1-2 days Time of Disposition: 18:35
[2023-06-15 19:29] VITALS: BP 144/81; PULSE 87; TEMP 98.1
== END 2023-06-15 19:08 | disposition home or self-care (01) ==
LOC: EC 16:05
DX: J45.901 Unspecified asthma with (acute) exacerbation (principal); Z87.891 Personal history of nicotine dependence; Z88.2 Allergy status to sulfonamides; Z88.0 Allergy status to penicillin; Z90.49 Acquired absence of other specified parts of digestive tract
CPT/HCPCS: 36415; 94640; 93005; 80053; 85025; 71046; 99285; 96365; 96375; J2930; J3475

== ENCOUNTER 2023-06-16 09:44 | Observation (INO) | payer OTHER ==
[2023-06-16] MEDS: methylPREDNISolone SOD SUCCI 125 MG/2 ML VIAL IV STA (10:20)
[2023-06-16] MEDS: SODIUM CHLORIDE 0.9% 1,000 ML IV STA (10:21)
--- NOTE | 2023-06-16 10:24 | ED ---
SOB HPI - General Chief Complaint: Shortness of Breath Stated Complaint: SOB Time Seen by Provider: 06/16/23 09:50 Source: patient, RN notes reviewed Mode of arrival: ambulatory Limitations: no limitations - History of Present Illness Initial Comments: 33-year-old female presents emergency department complaint of shortness of breath. Patient has a history of asthma's been having issues over last 2 weeks. Patient states she has tried multiple updrafts at home with no relief she was seen here yesterday states that she minimally felt better and went home but is worse. Patient does admit that she is a daily smoker. Patient states that she lost her insurance so she has been unable to see her technology instructor. Patient denies abdominal pain, leg swelling, leg pain - Related Data Home Medications Medication Instructions Recorded Confirmed Albuterol Nebulized [Ventolin 2.5 mg INHALATION RT-QID PRN 04/28/23 06/15/23 Nebulized] Albuterol Sulfate [Albuterol 2 puff INHALATION RT-Q6H PRN 04/28/23 06/15/23 Sulfate Hfa] Budesonide [Pulmicort] 0.5 mg INHALATION RT-BID PRN 04/28/23 06/15/23 Budesonide/Formoterol Fumarate 2 puff INHALATION RT-BID 04/28/23 06/15/23 [Symbicort 160-4.5 Mcg Inhaler] Omalizumab [Xolair] 300 mg SQ Q14D 04/28/23 06/15/23 Previous Rx's Medication Instructions Recorded Albuterol Nebulized [Ventolin 2.5 mg INHALATION Q4H PRN #75 ml 06/15/23 Nebulized] predniSONE [Deltasone] 20 mg PO BID #10 tab 06/15/23 Allergies Allergy/AdvReac Type Severity Reaction Status Date / Time amoxicillin Allergy Rash/Hives Verified 06/16/23 09:49 Sulfa (Sulfonamide Allergy Rash/Hives Verified 06/16/23 09:49 Antibiotics) Review of Systems ROS Statement: Those systems with pertinent positive or pertinent negative responses have been documented in the HPI. ROS Other: All systems not noted in ROS Statement are negative. Past Medical History Past Medical History: Asthma Additional Past Medical History / Comment(s): chronic back issues History of Any Multi-Drug Resistant Organisms: MRSA Date of last positivie culture/infection: 10/2014 MDRO Source:: right arm Past Surgical History: Section, Cholecystectomy, Tubal Ligation, Uterine Ablation Additional Past Surgical History / Comment(s): laser treatment for genital warts Past Psychological History: No Psychological Hx Reported Smoking Status: Former smoker Past Alcohol Use History: Occasional, Rare Past Drug Use History: Marijuana General Exam Limitations: no limitations General appearance: alert, in distress Head exam: Present: atraumatic, normocephalic, normal inspection Respiratory exam: Present: respiratory distress, wheezes. Absent: normal lung sounds bilaterally, rales, rhonchi, stridor Cardiovascular Exam: Present: normal rhythm, tachycardia, normal heart sounds. Absent: systolic murmur, diastolic murmur, rubs, gallop, clicks GI/Abdominal exam: Present: soft, normal bowel sounds. Absent: distended, tenderness, guarding, rebound, rigid Course Vital Signs 06/16/23 06/16/23 06/16/23 09:44 10:32 10:47 Temperature 97.4 F L Pulse Rate 119 H 83 86 Respiratory 30 H Rate Blood Pressure 153/93 O2 Sat by Pulse 93 L Oximetry Medical Decision Making - Medical Decision Making Was pt. sent in by a medical professional or institution (, PA, MARINE CARGO SPECIALIST, urgent care, hospital, or detention...) When possible be specific @ -No Did you speak to anyone other than the patient for history (EMS, parent, family, police, friend...)? What history was obtained from this source @ -No Did you review nursing and triage notes (agree or disagree)? Why? @ -I reviewed and agree with nursing and triage notes Were old charts reviewed (outside hosp., previous admission, EMS record, old EKG, old radiological studies, urgent care reports/EKG's, detention records)? Report findings @ -Review labs, x-ray from yesterday Differential Diagnosis (chest pain, altered mental status, abdominal pain women, abdominal pain men, vaginal bleeding, weakness, fever, dyspnea, syncope, headache, dizziness, GI bleed, back pain, seizure, CVA, palpatations, mental health, musculoskeletal)? @ -Differential Dyspnea: Coronary syndrome, arrhythmia, tamponade, asthma, COPD, pulmonary embolism, pneumonia, pneumothorax, pulmonary effusion, anaphylaxis, diabetic ketoacidosis, flailed chest, pulmonary contusion, diaphragmatic rupture, anemia, neuromuscular, this is not meant to be an all-inclusive list. EKG interpreted by me (3pts min.). @ -As above X-rays interpreted by me (1pt min.). @ -Chest ray shows no acute cardiopulmonary process CT interpreted by me (1pt min.). @ -None done U/S interpreted by me (1pt. min.). @ -None done What testing was considered but not performed or refused? (CT, X-rays, U/S, labs)? Why? @ -None What meds were considered but not given or refused? Why? @ -None Did you discuss the management of the patient with other professionals (professionals i.e. , PA, MARINE CARGO SPECIALIST, lab, RT, psych nurse, rn social services, mechanical artist, teacher, mortgage loan officer originator, catalytic case operator)? Give summary @ -Sound physician for admission for asthma exacerbation and Was smoking cessation discussed for >3mins.? @ -No Was critical care preformed (if so, how long)? @ -No Were there social determinants of health that impacted care today? How? (Homelessness, low income, unemployed, alcoholism, drug addiction, transportation, low edu. Level, literacy, decrease access to med. care, halfway, rehab)? @ -No Was there de-escalation of care discussed even if they declined (Discuss DNR or withdrawal of care, Hospice)? DNR status @ -No What co-morbidities impacted this encounter? (DM, HTN, Smoking, COPD, CAD, Ca ncer, CVA, ARF, Chemo, Hep., AIDS, mental health diagnosis, sleep apnea, morbid obesity)? @ -Asthma, smoking Was patient admitted / discharged? Hospital course, mention meds given and route, prescriptions, significant lab abnormalities, going to OR and other pertinent info. @ -Admitted patient had worsening dyspnea over the last 2 weeks patient was seen here yesterday and sent home on steroids patient's symptoms have worsened has had minimal improvement after multiple breathing treatments. Patient will be admitted for asthma exacerbation with pulmonary consult. Undiagnosed new problem with uncertain prognosis? @ -No Drug Therapy requiring intensive monitoring for toxicity (Heparin, Nitro, I nsulin, Cardizem)? @ -No Were any procedures done? @ -No Diagnosis/symptom? @ -Asthma exacerbation, dyspnea Acute, or Chronic, or Acute on Chronic? @ -Acute Uncomplicated (without systemic symptoms) or Complicated (systemic symptoms)? @ -Complicated Side effects of treatment? @ -No Exacerbation, Progression, or Severe Exacerbation? @ -No Poses a threat to life or bodily function? How? (Chest pain, [place], [place], pneumonia, PE, COPD, DKA, ARF, appy, cholecystitis, CVA, Diverticulitis, Homicidal, Suicid al, threat to staff... and all critical care pts) @ -Yes asthma exacerbation possible leading to respiratory arrest - Lab Data Result diagrams: 06/16/23 10:09 06/16/23 10:09 Lab Results 06/16/23 06/16/23 06/16/23 Range/Units 10:09 10:09 10:09 WBC 22.1 H (3.8-10.6) k/uL RBC 4.94 (3.80-5.40) m/uL Hgb 14.3 (11.4-16.0) gm/dL Hct 41.9 (34.0-46.0) % MCV 85.0 (80.0-100.0) fL MCH 29.1 (25.0-35.0) pg MCHC 34.2 (31.0-37.0) g/dL RDW 13.3 (11.5-15.5) % Plt Count 372 (150-450) k/uL MPV 8.0 Neutrophils % 90 % Lymphocytes % 6 % Monocytes % 3 % Eosinophils % 1 % Basophils % 0 % Neutrophils # 19.8 H (1.3-7.7) k/uL Lymphocytes # 1.3 (1.0-4.8) k/uL Monocytes # 0.6 (0-1.0) k/uL Eosinophils # 0.3 (0-0.7) k/uL Basophils # 0.0 (0-0.2) k/uL PT 10.2 (10.0-12.5) sec INR 0.9 (<1.2) APTT 22.8 (22.0-30.0) sec D-Dimer 0.51 (<0.60) mg/L FEU Sodium 138 (137-145) mmol/L Potassium 4.0 (3.5-5.1) mmol/L Chloride 112 H (98-107) mmol/L Carbon Dioxide 12 L (22-30) mmol/L Anion Gap 14 mmol/L BUN 15 (7-17) mg/dL Creatinine 0.76 (0.52-1.04) mg/dL Est GFR (CKD-EPI)AfAm >90 (>60 ml/min/1.73 sqM) Est GFR (CKD-EPI)NonAf >90 (>60 ml/min/1.73 sqM) Glucose 179 H (74-99) mg/dL Calcium 9.8 (8.4-10.2) mg/dL Magnesium 1.9 (1.6-2.3) mg/dL Total Bilirubin 0.6 (0.2-1.3) mg/dL AST 25 (14-36) U/L ALT 34 (4-34) U/L Alkaline Phosphatase 78 (38-126) U/L Total Protein 7.9 (6.3-8.2) g/dL Albumin 4.4 (3.5-5.0) g/dL - EKG Data -: EKG Interpreted by Oh EKG Comments: EKG performed at 9: 58 sinus tachycardia with a rate of 100 NH 152 QRS 81 QT/QTc 345/402 Disposition Clinical Impression: Asthma exacerbation Disposition: ADMITTED IP TO THIS HOSP Condition: Poor Referrals: None,Stated [Primary Care Provider] - 1-2 days Time of Disposition: 11:48
--- NOTE | 2023-06-16 10:28 | XR ---
EXAMINATION TYPE: XR chest 2V DATE OF EXAM: 06/16/2023 10:10 AM CLINICAL INDICATION:Female, 33 years old with history of difficulty breathing; [facility] COMPARISON: Chest radiograph 06/15/2023 TECHNIQUE: XR chest 2V Frontal and lateral views of the chest. FINDINGS: Lungs/Pleura: There is no evidence of pleural effusion, focal consolidation, or pneumothorax. Pulmonary vascularity: Unremarkable. Heart/mediastinum: Cardiomediastinal silhouette is unremarkable. Musculoskeletal: No acute osseous pathology. Other findings: None Lines/Tubes: IMPRESSION: No acute cardiopulmonary disease/process.
[2023-06-16 10:31] LABS: Basophils % (A) 0 %; Eosinophils # (A) 0.3 k/uL (0-0.7); Eosinophils % (A) 1 %; HCT 41.9 % (34.0-46.0); HGB 14.3 gm/dL (11.4-16.0); Lymphocytes # (A) 1.3 k/uL (1.0-4.8); Lymphocytes % (A) 6 %; MCH 29.1 pg (25.0-35.0); MCHC 34.2 g/dL (31.0-37.0); Monocytes # (A) 0.6 k/uL (0-1.0); Monocytes % (A) 3 %; Neutrophils # (A) 19.8 k/uL (1.3-7.7); Neutrophils % (A) 90 %; Platelet Count 372 k/uL (150-450); RBC 4.94 m/uL (3.80-5.40); RDW 13.3 % (11.5-15.5); WBC 22.1 k/uL (3.8-10.6)
[2023-06-16] MEDS: IPRATROPIUM-ALBUTEROL 3 ML NEB INHALATION STA (10:31)
[2023-06-16 10:43] LABS: ALT 34 U/L (4-34); AST 25 U/L (14-36); African American GFR (CKD) >90 (>60 ml/min/1.73 sqM); Albumin 4.4 g/dL (3.5-5.0); Alkaline Phosphatase 78 U/L (38-126); Anion Gap 14 mmol/L; Blood Urea Nitrogen 15 mg/dL (7-17); Calcium 9.8 mg/dL (8.4-10.2); Carbon Dioxide 12 mmol/L (22-30); Chloride 112 mmol/L (98-107); Glucose 179 mg/dL (74-99); Magnesium 1.9 mg/dL (1.6-2.3); Non-African American GFR(CKD) >90 (>60 ml/min/1.73 sqM); Sodium 138 mmol/L (137-145); Total Bilirubin 0.6 mg/dL (0.2-1.3); Total Protein 7.9 g/dL (6.3-8.2)
[2023-06-16 11:01] LABS: INR 0.9 (<1.2); Partial Thromboplastin Time 22.8 sec (22.0-30.0); Prothrombin Time 10.2 sec (10.0-12.5)
[2023-06-16] MEDS ORDERED: NALOXONE 0.4 MG/ML 1 ML VIAL IV PRN (11:48)
[2023-06-16] MEDS ORDERED: ONDANSETRON 4 MG/2 ML VIAL IVP PRN (11:48)
[2023-06-16] MEDS ORDERED: IPRATROPIUM-ALBUTEROL 3 ML NEB INHALATION PRN (11:50)
[2023-06-16] MEDS: IPRATROPIUM-ALBUTEROL 3 ML NEB INHALATION SCH (12:10)
--- NOTE | 2023-06-16 13:09 | P.HPIM ---
History of Present Illness H&P Date: 06/16/23 33-year-old female with PMH of asthma presents the ED for shortness of breath. She was seen in the ED on 06/14 for similar complaints, treated with DuoNeb and Solu-Medrol and discharged in stable condition. She reports her breathing is not improved since her ED visit yesterday which prompted her to come to the ED today. She reports a dry cough. Never been intubated. Non smoker. Lost her insurance recently so is almost out of medications at home. In the ED, she underwent extensive evaluation. BP 153/93, HR 119, RR 30, T 97.4F, 93% on RA. CBC, coag panel, CMP done significant for WBC count 22.1 with neutrophilia, chloride 112, bicarb 12, glucose 179. Magnesium 1.9. D-dimer 0.51. Chest x- ray unremarkable. EKG sinus tachycardia. Patient is admitted for asthma exacerbation with pulmonology in consultation. General: non toxic, no distress, appears at stated age Derm: warm, dry Head: atraumatic, normocephalic, symmetric Eyes: EOMI, no lid lag, anicteric sclera Mouth: no lip lesion, mucus membranes moist Cardiovascular: S1S2 tachy, no murmur Lungs: Diffuse expiratory wheezing bilateral, no rhonchi, no rales , no accessory muscle use Ext: no gross muscle atrophy, no edema, no contractures Neuro: no focal neuro deficits Psych: Alert, oriented, appropriate affect Based on my assessment of this patient, this patient meets a high complexity level of care. Patient has an acute diagnosis of asthma exacerbation that poses a threat to life or bodily function. Asthma exacerbation: DuoNeb QID scheduled and Q2H PRN for SOB/wheezing. Solumedrol 60 mg IV Q8H. Symbicort 2 puff BID. Check COVID test. Telemetry monitoring. SIRS: No signs of active infection. Leukocytosis likely steroid induced from 06/14 ER visit. Monitor fever profile. Metabolic acidosis: Hyperchloremic. Check VBG. Obesity: Structured weight loss program. CODE STATUS: FULL CODE. DVT Prophylaxis: SCD GI Prophylaxis: Protonix PO Designated medical POA if patient is not able to make medical decisions for the mselves: I have reviewed the following senior consumer insights consultant notes: ED I have reviewed the results of the following tests: As above I have ordered the following tests: BMP. VBG I have discussed the care of this patient with the following independent historian: I have independently interpreted the following test below: EKG I have discussed the management of this patient with the following physician: Past Medical History Past Medical History: Asthma Additional Past Medical History / Comment(s): chronic back issues History of Any Multi-Drug Resistant Organisms: MRSA Date of last positivie culture/infection: 10/2014 MDRO Source:: right arm Past Surgical History: Section, Cholecystectomy, Tubal Ligation, Uterine Ablation Additional Past Surgical History / Comment(s): laser treatment for genital warts Past Psychological History: No Psychological Hx Reported Smoking Status: Former smoker Past Alcohol Use History: Occasional, Rare Past Drug Use History: Marijuana Medications and Allergies Home Medications Medication Instructions Recorded Confirmed Type Albuterol Sulfate [Albuterol 2 puff INHALATION RT-Q6H PRN 04/28/23 06/16/23 History Sulfate Hfa] Budesonide [Pulmicort] 0.5 mg INHALATION RT-BID PRN 04/28/23 06/16/23 History Budesonide/Formoterol Fumarate 2 puff INHALATION RT-BID 04/28/23 06/16/23 History [Symbicort 160-4.5 Mcg Inhaler] Omalizumab [Xolair] 300 mg SQ Q14D 04/28/23 06/16/23 History Albuterol Nebulized [Ventolin 2.5 mg INHALATION RT-Q4H PRN 06/16/23 06/16/23 History Nebulized] predniSONE [Deltasone] 20 mg PO DIRECTED 06/16/23 06/16/23 History Allergies Allergy/AdvReac Type Severity Reaction Status Date / Time amoxicillin Allergy Rash/Hives Verified 06/16/23 12:24 Sulfa (Sulfonamide Allergy Rash/Hives Verified 06/16/23 12:24 Antibiotics) Physical Exam Vitals: Vital Signs Temp Pulse Resp BP Pulse Ox 06/16/23 12:39 102 H 22 151/70 97 06/16/23 12:21 95 06/16/23 12:11 80 06/16/23 10:47 86 06/16/23 10:32 83 06/16/23 09:44 97.4 F L 119 H 30 H 153/93 93 L Intake and Output 06/15/23 06/16/23 06/16/23 22:59 06:59 14:59 Other: Weight 53.524 kg Results CBC & Chem 7: 06/16/23 10:09 06/16/23 10:09 Labs: Abnormal Lab Results - Last 24 Hours (Table) 06/16/23 06/16/23 Range/Units 10:09 10:09 WBC 22.1 H (3.8-10.6) k/uL Neutrophils # 19.8 H (1.3-7.7) k/uL Chloride 112 H (98-107) mmol/L Carbon Dioxide 12 L (22-30) mmol/L Glucose 179 H (74-99) mg/dL
[2023-06-16 13:52] LABS: VBG PH 7.52 (7.31-7.41)
[2023-06-16] MEDS: ACETAMINOPHEN TAB 325 MG TAB PO PRN (16:03)
[2023-06-16] MEDS: methylPREDNISolone SOD SUCCI 125 MG/2 ML VIAL IV SCH (16:03)
[2023-06-16] MEDS: SYMBICORT 160-4.5 MCG INHALER INHALATION SCH (19:46)
[2023-06-17] MEDS ORDERED: DEXTROSE 50% SYRINGE 50 ML IVP PRN ×2 (01:06)
--- NOTE | 2023-06-17 01:10 | P.CNPUL ---
History of Present Illness Consult date: 06/17/23 Requesting physician: Jonathan Carter Reason for consult: asthma Chief complaint: Shortness of breath, wheezing, chest tightness History of present illness: I am seeing this patient in consultation today 06/17/2023 after she presented with 2 weeks of ongoing shortness of breath, chest tightness, wheezing. Patient is a 33-year-old female with past medical history significant for severe chronic bronchial asthma, she is maintained on a combination of Symbicort inhaler, as needed albuterol nebs, as needed albuterol rescue inhaler, and Xolair injections. She has followed with a local cash register mechanic, Dr. Viri Seo, in the past but has recently lost her insurance. Over the last 2 weeks she has been experiencing severe shortness of breath, wheezing, and chest tightness. She has been using her albuterol nebs without much relief. She has ran out of her albuterol rescue inhaler. She does have an intermittent cough, that is mostly nonproductive. Denies any fevers, chills. Denies sick contacts. She did have a recent ER visit on 06/15/2023 for the same symptoms. She was discharged home with some prescriptions that she was not able to fill. She did come back to the emergency room yesterday morning. Chest x-ray on arrival does not show any acute infiltrates or evidence of pneumonia. Negative for influenza, RSV, COVID. CBC shows some leukocytosis with a WBC count of 22.1, and the remainder of CBC is unremarkable. BMP also unremarkable. VBG done shows a pH of 7.52 and pCO2 of 17. EKG shows sinus tachycardia. She has already been started on a combination of DuoNebs, Symbicort inhaler, and IV Solu-Medrol. She is currently sitting up in bed, on room air, in no acute dist ress. Breathing is nonlabored. She is afebrile. She remains tachycardic. Overall, vital signs are stable. Review of Systems REVIEW OF SYSTEMS: CONSTITUTIONAL: Denies any recent significant weight loss or weight gain. EYES: Denies change in vision. EARS, NOSE, MOUTH, THROAT: Denies headaches, denies sore throat. CARDIOVASCULAR: Denies chest pain, palpitations or syncopal episodes. RESPIRATORY: See HPI GASTROINTESTINAL: Denies change in appetite, abdominal pain, nausea and vomiting, or diarrhea GENITOURINARY: Denies hematuria, denies infections. MUSKULOSKELETAL: Denies pain, denies swelling. INTEGUMENTARY: Denies rash, denies eczema. NEUROLOGICAL: Denies recent memory loss, no recent seizure activity. PSYCHIATRIC: Denies anxiety, denies depression. HEMATOLOGIC/LYMPHATIC: Denies anemia, denies enlarged lymph node Past Medical History Past Medical History: Asthma Additional Past Medical History / Comment(s): chronic back issues History of Any Multi-Drug Resistant Organisms: MRSA Date of last positivie culture/infection: 2020 MDRO Source:: Left knee Past Surgical History: Section, Cholecystectomy, Tubal Ligation, Uterine Ablation Additional Past Surgical History / Comment(s): laser treatment for genital warts Past Psychological History: No Psychological Hx Reported Smoking Status: Former smoker Past Alcohol Use History: Occasional, Rare Past Drug Use History: Marijuana Additional Drug Use History / Comment(s): daily marijuana use Medications and Allergies Home Medications Medication Instructions Recorded Confirmed Type Albuterol Sulfate [Albuterol 2 puff INHALATION RT-Q6H PRN 04/28/23 06/16/23 History Sulfate Hfa] Budesonide [Pulmicort] 0.5 mg INHALATION RT-BID PRN 04/28/23 06/16/23 History Budesonide/Formoterol Fumarate 2 puff INHALATION RT-BID 04/28/23 06/16/23 History [Symbicort 160-4.5 Mcg Inhaler] Omalizumab [Xolair] 300 mg SQ Q14D 04/28/23 06/16/23 History Albuterol Nebulized [Ventolin 2.5 mg INHALATION RT-Q4H PRN 06/16/23 06/16/23 History Nebulized] predniSONE [Deltasone] 20 mg PO DIRECTED 06/16/23 06/16/23 History Allergies Allergy/AdvReac Type Severity Reaction Status Date / Time amoxicillin Allergy Rash/Hives Verified 06/16/23 12:24 Sulfa (Sulfonamide Allergy Rash/Hives Verified 06/16/23 12:24 Antibiotics) Physical Exam Vitals: Vital Signs Temp Pulse Pulse Resp BP BP Pulse Ox 06/16/23 20:13 98.4 F 110 H 16 139/66 95 06/16/23 20:00 16 06/16/23 19:56 101 H 06/16/23 19:46 98.9 F 100 112 H 140/82 95 06/16/23 16:37 107 H 06/16/23 16:27 110 H 06/16/23 14:38 98.1 F 102 H 16 138/84 93 L 06/16/23 13:21 103 H 20 147/82 96 06/16/23 12:39 102 H 22 151/70 97 06/16/23 12:21 95 06/16/23 12:11 80 06/16/23 10:47 86 06/16/23 10:32 83 06/16/23 09:44 97.4 F L 119 H 30 H 153/93 93 L Intake and Output 06/16/23 06/16/23 06/17/23 14:59 22:59 06:59 Other: # Voids 1 Weight 53.524 kg GENERAL EXAM: Alert, 33-year-old white female, appearing stated age, comfortable in no apparent distress. HEAD: Normocephalic and atraumatic EYES: Normal reaction of pupils, equal size. NOSE: Clear with pink turbinates. THROAT: No erythema or exudates. NECK: No masses, no JVD. CHEST: No chest wall deformity. LUNGS: Equal air entry with expiratory wheezes heard throughout. Room air. No conversational dyspnea or accessory muscle use.. CVS: S1 and S2 normal with no audible murmur, regular rhythm. No extra heart sounds ABDOMEN: No hepatosplenomegaly, active bowel sounds, no guarding or rigidity. SPINE: No scoliosis or deformity SKIN: No rashes CENTRAL NERVOUS SYSTEM: No focal deficits, tone is normal in all 4 extremities. EXTREMITIES: There is no peripheral edema, clubbing, or cyanosis. Peripheral pulses are intact. Results - Laboratory Findings CBC and BMP: 06/16/23 10:09 06/16/23 10:09 PT/INR, D-dimer PT 10.2 sec (10.0-12.5) 06/16/23 10:09 INR 0.9 (<1.2) 06/16/23 10:09 D-Dimer 0.51 mg/L FEU (<0.60) 06/16/23 10:09 Abnormal lab findings: Abnormal Labs 06/16/23 06/16/23 06/16/23 10:09 10:09 13:13 WBC 22.1 H Neutrophils # 19.8 H VBG pH 7.52 H VBG pCO2 17 L* VBG HCO3 13 L Chloride 112 H Carbon Dioxide 12 L Glucose 179 H - Diagnostic Findings Chest x-ray: image reviewed Assessment and Plan Assessment: Acute exacerbation of severe chronic bronchial asthma, chest x-ray does not show any focal infiltrates or evidence of pneumonia. Negative for influenza, RSV, COVID. Leukocytosis, doubt infectious etiology History of severe chronic bronchial asthma, normally maintained on a combination of albuterol nebs and albuterol rescue inhaler as needed, Symbicort inhaler, and Xolair injections. Former tobacco dependence Plan: Patient's medications, labs, chest x-ray reviewed Currently on room air. May use supplemental oxygen if needed to maintain oxygen saturation 92% or greater Continue combination of DuoNebs [id number], Symbicort inhaler, and IV Solu-Medrol Asthma remains active Anticipate 24 to 48-hour hospital stay We will continue to follow I have personally seen and examined the patient, performed the documentation and the assessment and plan as written. Number of minutes spent on the visit:20 Time with Patient: Greater than 30
[2023-06-17] MEDS: PANTOPRAZOLE 40 MG TABLET PO SCH (08:05)
[2023-06-17] MEDS: INSULIN ASPART (NovoLOG) 100 UNIT/ML VIAL SQ SCH (08:15)
--- NOTE | 2023-06-17 11:28 | P.PN ---
Subjective Progress Note Date: 06/17/23 33-year-old female with PMH of asthma presents the ED for shortness of breath. She was seen in the ED on 06/14 for similar complaints, treated with DuoNeb and Solu-Medrol and discharged in stable condition. She reports her breathing is not improved since her ED visit yesterday which prompted her to come to the ED today. She reports a dry cough. Never been intubated. Non smoker. Lost her insurance recently so is almost out of medications at home. In the ED, she underwent extensive evaluation. BP 153/93, HR 119, RR 30, T 97.4F, 93% on RA. CBC, coag panel, CMP done significant for WBC count 22.1 with neutrophilia, chloride 112, bicarb 12, glucose 179. Magnesium 1.9. D-dimer 0.51. Chest x-ra y unremarkable. EKG sinus tachycardia. Patient is admitted for asthma exacerbation with pulmonology in consultation. Started on bronchodilators and steroids. Pulmonary consulted. 06/16 Patient was seen and examined. States she is 50% better. Still complains of chest tightness and wheezing however improved. She remains tachycardic with HR in the 90s and 100s. Saturating 96% on RA. VBG shows pH 7.52 pCO2 17. COVID, RSV, Flu negative. General: non toxic, no distress, appears at stated age Derm: warm, dry Head: atraumatic, normocephalic, symmetric Eyes: EOMI, no lid lag, anicteric sclera Mouth: no lip lesion, mucus membranes moist Cardiovascular: S1S2 tachy, no murmur Lungs: End expiratory wheezing bilateral, no rhonchi, no rales , no accessory muscle use Ext: no gross muscle atrophy, no edema, no contractures Neuro: no focal neuro deficits Psych: Alert, oriented, appropriate affect Based on my assessment of this patient, this patient meets a high complexity level of care. Patient has an acute diagnosis of asthma exacerbation that poses a threat to life or bodily function. Asthma exacerbation: DuoNeb QID scheduled and Q2H PRN for SOB/wheezing. Solumedrol 60 mg IV Q8H. Symbicort 2 puff BID. Telemetry monitoring. SIRS: No signs of active infection. Leukocytosis likely steroid induced from 06/14 ER visit. Monitor fever profile. Metabolic acidosis: VBG indicates respiratory alkalosis with metabolic alkalosis. She does not appear to be in any acute distress. Obesity: Structured weight loss program. CODE STATUS: FULL CODE. DVT Prophylaxis: SCD GI Prophylaxis: Protonix PO Designated medical POA if patient is not able to make medical decisions for themselves: I have reviewed the following pharmacy consultant notes: Pulmonary. I have reviewed the results of the following tests: VBG. COVID. I have ordered the following tests: I have discussed the care of this patient with the following independent historian: I have independently interpreted the following test below: I have discussed the management of this patient with the following physician: Discussed with Dr. Hoffman. Objective - Vital Signs Vital signs: Vital Signs Temp 98.2 F 06/17/23 08:11 Pulse 88 06/17/23 09:35 Resp 17 06/17/23 08:11 BP 140/96 06/17/23 08:11 Pulse Ox 96 06/17/23 08:11 FiO2 Intake & Output 06/16/23 06/17/23 06/17/23 18:59 06:59 18:59 Weight 53.524 kg 100 kg Other: # Voids 1 - Labs CBC & Chem 7: 06/16/23 10:09 06/16/23 10:09 Labs: Abnormal Lab Results - Last 24 Hours (Table) 06/16/23 Range/Units 13:13 VBG pH 7.52 H (7.31-7.41) VBG pCO2 17 L* (37-51) mmHg VBG HCO3 13 L (24-28) mmol/L
[2023-06-17 11:58] LABS: Glucose,Whole Blood 193 mg/dL (70-110)
--- NOTE | 2023-06-17 12:35 | P.CNPUL ---
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 She lives with her boyfriend and she has several children. She has also a dog pet at home. She is known to have chronic bronchial asthma, severe and she has been managed by Dr. Viri Seo. The patient has been treated with a combination of Xolair injections, Symbicort and Si ngulair and she also has budesonide nebulized treatments [id number]. Recently, the patient lost her insurance and she was unable to maintain her medications subsequently over the past 1 week, her asthma exacerbated. She is having significant hoarseness. She has also congested cough along with chest tightness and increased wheezing. Her chest x-ray shows no acute abnormalities or pulmonary infiltrates. The viral screen was negative. The white cell count was at 22 and a hemoglobin was at 14.3 with a platelet count of 371. Electrolytes showed a component of anion gap metabolic acidosis with a serum bicarb of 12 and a gap of 14. Sodium level is at 138. The patient is currently on DuoNeb updrafts, IV Solu-Medrol and Symbicort. Slightly improved compared to yesterday. No nausea. No vomiting. No diarrhea. No chest pain. No official diagnosis obstructive sleep apnea. She is obese with a BMI of 35.6. She is a non-smoker. No exposure to respiratory irritants Review of Systems CONSTITUTIONAL: Denies any recent significant weight loss or weight gain. EYES: Denies change in vision. EARS, NOSE, MOUTH, THROAT: Denies headaches, denies sore throat. CARDIOVASCULAR: Denies chest pain, palpitations or syncopal episodes. RESPIRATORY: See HPI GASTROINTESTINAL: Denies change in appetite, abdominal pain, nausea and vomiting, or diarrhea GENITOURINARY: Denies hematuria, denies infections. MUSKULOSKELETAL: Denies pain, denies swelling. INTEGUMENTARY: Denies rash, denies eczema. NEUROLOGICAL: Denies recent memory loss, no recent seizure activity. PSYCHIATRIC: Denies anxiety, denies depression. HEMATOLOGIC/LYMPHATIC: Denies anemia, denies enlarged lymph node Past Medical History Past Medical History: Asthma Additional Past Medical History / Comment(s): chronic back issues History of Any Multi-Drug Resistant Organisms: MRSA Date of last positivie culture/infection: 2020 MDRO Source:: Left knee Past Surgical History: Section, Cholecystectomy, Tubal Ligation, Uterine Ablation Additional Past Surgical History / Comment(s): laser treatment for genital warts Past Psychological History: No Psychological Hx Reported Smoking Status: Former smoker Past Alcohol Use History: Occasional, Rare Past Drug Use History: Marijuana Additional Drug Use History / Comment(s): daily marijuana use Medications and Allergies Home Medications Medication Instructions Recorded Confirmed Type Albuterol Sulfate [Albuterol 2 puff INHALATION RT-Q6H PRN 04/28/23 06/16/23 History Sulfate Hfa] Budesonide [Pulmicort] 0.5 mg INHALATION RT-BID PRN 04/28/23 06/16/23 History Budesonide/Formoterol Fumarate 2 puff INHALATION RT-BID 04/28/23 06/16/23 History [Symbicort 160-4.5 Mcg Inhaler] Omalizumab [Xolair] 300 mg SQ Q14D 04/28/23 06/16/23 History Albuterol Nebulized [Ventolin 2.5 mg INHALATION RT-Q4H PRN 06/16/23 06/16/23 History Nebulized] predniSONE [Deltasone] 20 mg PO DIRECTED 06/16/23 06/16/23 History Allergies Allergy/AdvReac Type Severity Reaction Status Date / Time amoxicillin Allergy Rash/Hives Verified 06/16/23 12:24 Sulfa (Sulfonamide Allergy Rash/Hives Verified 06/16/23 12:24 Antibiotics) Physical Exam Vitals: Vital Signs Temp Pulse Pulse Resp BP BP Pulse Ox 06/17/23 09:35 88 06/17/23 09:24 92 06/17/23 08:11 98.2 F 101 H 17 140/96 96 06/17/23 01:39 98.6 F 92 16 145/75 99 06/16/23 20:13 98.4 F 110 H 16 139/66 95 06/16/23 20:00 16 06/16/23 19:56 101 H 06/16/23 19:46 98.9 F 100 112 H 140/82 95 06/16/23 16:37 107 H 06/16/23 16:27 110 H 06/16/23 14:38 98.1 F 102 H 16 138/84 93 L 06/16/23 13:21 103 H 20 147/82 96 06/16/23 12:39 102 H 22 151/70 97 Intake and Output 06/16/23 06/17/23 06/17/23 22:59 06:59 14:59 Other: # Voids 1 Weight 100 kg GENERAL EXAM: Alert, 33-year-old white female, appearing stated age, comfortable in no apparent distress. HEAD: Normocephalic and atraumatic EYES: Normal reaction of pupils, equal size. NOSE: Clear with pink turbinates. THROAT: No erythema or exudates. NECK: No masses, no JVD. CHEST: No chest wall deformity. LUNGS: Equal air entry with expiratory wheezes heard throughout. Room air. No conversational dyspnea or accessory muscle use.. CVS: S1 and S2 normal with no audible murmur, regular rhythm. No extra heart so unds ABDOMEN: No hepatosplenomegaly, active bowel sounds, no guarding or rigidity. SPINE: No scoliosis or deformity SKIN: No rashes CENTRAL NERVOUS SYSTEM: No focal deficits, tone is normal in all 4 extremities. EXTREMITIES: There is no peripheral edema, clubbing, or cyanosis. Peripheral pulses are intact. Results - Laboratory Findings CBC and BMP: 06/16/23 10:09 06/16/23 10:09 PT/INR, D-dimer PT 10.2 sec (10.0-12.5) 06/16/23 10:09 INR 0.9 (<1.2) 06/16/23 10:09 D-Dimer 0.51 mg/L FEU (<0.60) 06/16/23 10:09 Abnormal lab findings: Abnormal Labs 06/16/23 06/16/23 06/16/23 10:09 10:09 13:13 WBC 22.1 H Neutrophils # 19.8 H VBG pH 7.52 H VBG pCO2 17 L* VBG HCO3 13 L Chloride 112 H Carbon Dioxide 12 L Glucose 179 H POC Glucose (mg/dL) 06/17/23 11:57 WBC Neutrophils # VBG pH VBG pCO2 VBG HCO3 Chloride Carbon Dioxide Glucose POC Glucose (mg/dL) 193 H Assessment and Plan Plan: Acute exacerbation of severe chronic bronchial asthma, chest x-ray does not show any focal infiltrates or evidence of pneumonia. Negative for influenza, RSV, COVID. 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 The patient has been able to keep up with her medication because of insurance related difficulties. Acute hoarseness, consider underlying laryngitis. The patient may also have a component of bronchitis. Leukocytosis, doubt infectious etiology History of severe chronic bronchial asthma, normally maintained on a combination of albuterol nebs and albuterol rescue inhaler as needed, Symbicort inhaler, and Xolair injections. Former tobacco dependence Plan: Will optimize asthma exacerbation Currently on room air. Continue DuoNeb nebulized treatments [id number] 4 times a day Restart Symbicort as maintenance Continue IV Solu-Medrol 60 mg every 6 hours Add Levaquin 750 mg p.o. daily Asthma remains active Anticipate 24 to 48-hour hospital stay
[2023-06-17] MEDS: LEVOFLOXACIN 750 MG TAB PO SCH (13:34)
[2023-06-17 17:01] LABS: Glucose,Whole Blood 130 mg/dL (70-110)
[2023-06-17 20:20] LABS: Glucose,Whole Blood 212 mg/dL (70-110)
[2023-06-18] MEDS: NYSTATIN 100,000 UNIT/ML SUSP 500,000 UNIT/5 ML CUP PO SCH (02:32)
[2023-06-18] MEDS: BENZONATATE 100 MG CAP PO PRN (02:34)
[2023-06-18] MEDS: BENZOCAINE/MENTHOL LOZENG 1 EACH LOZENGE MUCOUS MEM PRN (03:07)
[2023-06-18 07:43] LABS: Glucose,Whole Blood 149 mg/dL (70-110)
[2023-06-18 11:59] LABS: Glucose,Whole Blood 185 mg/dL (70-110)
--- NOTE | 2023-06-18 16:26 | P.PN ---
Subjective Progress Note Date: 06/18/23 Patient reports she is still extremely dyspneic on exertion, but has been maintaining room air at rest. She relates that her cough has gotten worse today, but she is now able to bring up sputum. Gen: In NAD, non-toxic HEENT: normocephalic, atraumatic, hearing acuity is intant, mucous membranes moist CVS: perfusing all extremities well, no pitting edema, tachycardic without murmurs Respiratory: symmetric chest expansion, no accessory muscle use, diffuse end expiratory wheezing GI: soft, NTTP, ND, : no suprapubic tenderness, no CVA tenderness MSK/Derm: no rashes, cyanosis Neuro: CN II-XII intact, no motor weakness, Psych: cooperative, euthymic mood, judgment and insight is intact Hospital course: 33-year-old female with PMH of asthma presents the ED for shortness of breath. She was seen in the ED on 06/14 for similar complaints, treated with DuoNeb and Solu-Medrol and discharged in stable condition. She reports her breathing is not improved since her ED visit yesterday which prompted her to come to the ED today. She reports a dry cough. Never been intubated. Non smoker. Lost her insurance recently so is almost out of medications at home. In the ED, she underwent extensive evaluation. BP 153/93, HR 119, RR 30, T 97.4F, 93% on RA. CBC, coag panel, CMP done significant for WBC count 22.1 with neutrophilia, chloride 112, bicarb 12, glucose 179. Magnesium 1.9. D-dimer 0.51. Chest x- ray unremarkable. EKG sinus tachycardia. Patient is admitted for asthma exacerbation with pulmonology in consultation. Started on bronchodilators and steroids. Pulmonary consulted. 06/16 Patient was seen and examined. States she is 50% better. Still complains of chest tightness and wheezing however improved. She remains tachycardic with HR in the 90s and 100s. Saturating 96% on RA. VBG shows pH 7.52 pCO2 17. COVID, RSV, Flu negative. Assessment/plan: Asthma exacerbation: -DuoNeb QID scheduled and Q2H PRN for SOB/wheezing. -Solumedrol 60 mg IV Q8H. Symbicort 2 puff BID. -Telemetry monitoring. SIRS: No signs of active infection. Leukocytosis likely steroid induced from ER visit. Monitor fever profile. Metabolic acidosis: VBG indicates respiratory alkalosis with metabolic alkalosis. She does not appear to be in any acute distress. Obesity: Structured weight loss program. CODE STATUS: FULL CODE. DVT Prophylaxis: SCD GI Prophylaxis: Protonix PO Designated medical POA if patient is not able to make medical decisions for themselves: Objective - Vital Signs Vital signs: Vital Signs Temp 98.6 F 06/18/23 12:01 Pulse 97 06/18/23 16:12 Resp 16 06/18/23 12:01 BP 125/75 06/18/23 12:01 Pulse Ox 93 L 06/18/23 12:01 FiO2 Intake & Output 06/17/23 06/18/23 06/18/23 18:59 06:59 18:59 Intake Total 540 Output Total 1620 Balance -1620 540 Weight 100 kg Intake: Oral 540 Output: Urine 1620 Other: # Voids 1 - Labs CBC & Chem 7: 06/16/23 10:09 06/16/23 10:09 Labs: Abnormal Lab Results - Last 24 Hours (Table) 06/17/23 06/17/23 06/18/23 Range/Units 17:00 20:18 07:43 POC Glucose (mg/dL) 130 H 212 H 149 H (70-110) mg/dL 06/18/23 Range/Units 11:58 POC Glucose (mg/dL) 185 H (70-110) mg/dL
[2023-06-18 17:09] LABS: Glucose,Whole Blood 169 mg/dL (70-110)
--- NOTE | 2023-06-18 17:58 | P.PN ---
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 She lives with her boyfriend and she has several children. She has also a dog pet at home. She is known to have chronic bronchial asthma, severe and she has been managed by Dr. Viri Seo. The patient has been treated with a combination of Xolair injections, Symbicort and Singulair and she also has budesonide nebulized treatments [id number]. Recently, the patient lost her insurance and she was unable to maintain her medications subsequently over the past 1 week, her asthma exacerbated. She is having significant hoarseness. She has also congested cough along with chest tightness and increased wheezing. Her chest x-ray shows no acute abnormalities or pulmonary infiltrates. The viral screen was negative. The white cell count was at 22 and a hemoglobin was at 14.3 with a platelet count of 371. Electrolytes showed a component of anion gap metabolic acidosis with a serum bicarb of 12 and a gap of 14. Sodium level is at 138. The patient is currently on DuoNeb updrafts, IV Solu-Medrol and Symbicort. Slightly improved compared to yesterday. No nausea. No vomiting. No diarrhea. No chest pain. No official diagnosis obstructive sleep apnea. She is obese with a BMI of 35.6. She is a non-smoker. No exposure to respiratory irritants On today's evaluation of 06/18/2023, the patient is feeling essentially the same. Slightly improved. Voice continues to be hoarse. Remains on bronchodilators and steroids. Remains on Levaquin as an empiric antibiotic coverage. No new complaints otherwise for now. She is on room air oxygen. Still bronchospastic and wheezy. Objective - Vital Signs Vital signs: Vital Signs Temp 97.7 F 06/18/23 07:45 Pulse 105 H 06/18/23 12:19 Resp 16 06/18/23 07:45 BP 125/89 06/18/23 07:45 Pulse Ox 94 L 06/18/23 07:45 FiO2 Intake & Output 06/17/23 06/18/23 06/18/23 18:59 06:59 18:59 Intake Total 540 Output Total 1620 Balance -1620 540 Weight 100 kg Intake: Oral 540 Output: Urine 1620 Other: # Voids 1 - Exam GENERAL EXAM: Alert, 33-year-old white female, appearing stated age, comfortable in no apparent distress. HEAD: Normocephalic and atraumatic EYES: Normal reaction of pupils, equal size. NOSE: Clear with pink turbinates. THROAT: No erythema or exudates. NECK: No masses, no JVD. CHEST: No chest wall deformity. LUNGS: Equal air entry with expiratory wheezes heard throughout. Room air. No conversational dyspnea or accessory muscle use.. CVS: S1 and S2 normal with no audible murmur, regular rhythm. No extra heart sounds ABDOMEN: No hepatosplenomegaly, active bowel sounds, no guarding or rigidity. SPINE: No scoliosis or deformity SKIN: No rashes CENTRAL NERVOUS SYSTEM: No focal deficits, tone is normal in all 4 extremities. EXTREMITIES: There is no peripheral edema, clubbing, or cyanosis. Peripheral pulses are intact. - Labs CBC & Chem 7: 06/16/23 10:09 06/16/23 10:09 Labs: Abnormal Lab Results - Last 24 Hours (Table) 06/17/23 06/17/23 06/18/23 Range/Units 17:00 20:18 07:43 POC Glucose (mg/dL) 130 H 212 H 149 H (70-110) mg/dL 06/18/23 Range/Units 11:58 POC Glucose (mg/dL) 185 H (70-110) mg/dL Assessment and Plan Plan: Acute exacerbation of severe chronic bronchial asthma, chest x-ray does not show any focal infiltrates or evidence of pneumonia. Negative for influenza, RSV, COVID. 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 The patient has been able to keep up with her medication because of insurance related difficulties. Acute hoarseness, consider underlying laryngitis. The patient may also have a component of bronchitis. Leukocytosis, doubt infectious etiology History of severe chronic bronchial asthma, normally maintained on a combination of albuterol nebs and albuterol rescue inhaler as needed, Symbicort inhaler, and Xolair injections. Former tobacco dependence Plan: Will continue the same treatment Will optimize asthma exacerbation Currently on room air. Continue DuoNeb nebulized treatments [id number] 4 times a day Restart Symbicort as maintenance Continue IV Solu-Medrol 60 mg every 6 hours Continue Levaquin 750 mg p.o. daily Asthma remains active Anticipate 24 to 48-hour hospital stay, limited improvement since yesterday and will continue to follow-up
[2023-06-18 20:26] LABS: Glucose,Whole Blood 237 mg/dL (70-110)
[2023-06-18] MEDS: traZODone HCL 50 MG TAB PO PRN (21:07)
[2023-06-19 07:16] LABS: Glucose,Whole Blood 156 mg/dL (70-110)
[2023-06-19 08:19] VITALS: RESP 18
[2023-06-19 10:08] VITALS: BP 130/86; TEMP 98.6
[2023-06-19 11:50] LABS: Basophils # (A) 0.06 X 10*3/uL (0.00-0.10); Basophils % (A) 0.7 %; Eosinophils # (A) 0.01 X 10*3/uL (0.04-0.35); Eosinophils % (A) 0.1 %; HCT 28.5 % (37.2-46.3); HGB 9.5 g/dL (12.0-15.0); Lymphocytes % (A) 13.7 %; MCH 33.2 pg (27.0-32.0); MCHC 33.3 g/dL (32.0-37.0); MCV 99.7 FL (80.0-97.0); Mean Platelet Volume 11.8 FL (9.5-12.2); Monocytes # (A) 0.67 X 10*3/uL (0.20-1.00); Monocytes % (A) 7.7 %; NRBC Per 100 WBC 0 X 10*3/uL (0.00-0.01); Neutrophils # (A) 6.67 X 10*3/uL (1.80-7.70); Neutrophils % (A) 76.2 %; Platelet Count 158 X 10*3/uL (140-440); RBC 2.86 X 10*6/uL (4.10-5.20); RDW 16.9 % (11.5-14.5); WBC 8.75 X 10*3/uL (4.50-10.00)
[2023-06-19 11:56] VITALS: PULSE 77
[2023-06-19 11:56] LABS: Glucose,Whole Blood 143 mg/dL (70-110)
[2023-06-19 12:48] LABS: Blood Urea Nitrogen 22.5 mg/dL (9.0-27.0); Calcium 10.1 mg/dL (8.7-10.3); Carbon Dioxide 20.3 mmol/L (21.6-31.8); Chloride 101 mmol/L (96-109); Glucose 185 mg/dL (70-110); Magnesium 2.3 mg/dL (1.5-2.4); Potassium 4.7 mmol/L (3.5-5.5); Sodium 135 mmol/L (135-145)
--- NOTE | 2023-06-19 15:11 | P.DS ---
Providers Date of admission: 06/16/23 11:48 Expected date of discharge: 06/19/23 Attending physician: Herlinda De DO Consults: 06/16/23 11:48 Consult Physician Urgent Consulting Provider: Adelaide Hoffman Consult Reason/Comments: Asthma exacerbation Do you want consulting provider notified?: Yes Primary care physician: Stated None Hospital Course: Asthma exacerbation: SIRS: Metabolic acidosis: Obesity: Gen: In NAD, non-toxic HEENT: normocephalic, atraumatic, hearing acuity is intant, mucous membranes moist CVS: perfusing all extremities well, no pitting edema, tachycardic without murmurs Respiratory: symmetric chest expansion, no accessory muscle use, diffuse end expiratory wheezing GI: soft, NTTP, ND, : no suprapubic tenderness, no CVA tenderness MSK/Derm: no rashes, cyanosis Neuro: CN II-XII intact, no motor weakness, Psych: cooperative, euthymic mood, judgment and insight is intact Hospital course: 33-year-old female with PMH of asthma presents the ED for shortness of breath. She was seen in the ED on 06/14 for similar complaints, treated with DuoNeb and Solu-Medrol and discharged in stable condition. She reports her breathing is not improved since her ED visit yesterday which prompted her to come to the ED today. She reports a dry cough. Never been intubated. Non smoker. Lost her insurance recently so is almost out of medications at home. In the ED, she underwent extensive evaluation. BP 153/93, HR 119, RR 30, T 97.4F, 93% on RA. CBC, coag panel, CMP done significant for WBC count 22.1 with neutrophilia, chloride 112, bicarb 12, glucose 179. Magnesium 1.9. D-dimer 0.51. Chest x- ray unremarkable. EKG sinus tachycardia. Patient is admitted for asthma exacerbation with pulmonology in consultation. Started on bronchodilators and steroids. Pulmonary consulted. 06/16 Patient was seen and examined. States she is 50% better. Still complains of chest tightness and wheezing however improved. She remains tachycardic with HR in the 90s and 100s. Saturating 96% on RA. VBG shows pH 7.52 pCO2 17. COVID, RSV, Flu negative. 06/17-06/18 Pt reported significant improvement in breathing. She was discharged home with PCP referral and pulmonlogy referral. Albuterol inhaler, symbicort, and prednisone taper prescribed. Levoquin prescribed for additional 4 days. I spent 34 minutes coordinating this discharge Patient Condition at Discharge: Good Plan - Discharge Summary New Discharge Prescriptions: New Acetaminophen Tab [Tylenol] 650 mg PO Q6HR PRN tab PRN Reason: Mild Pain Or Fever > 100.5 Levofloxacin [Levaquin] 750 mg PO DAILY@1300 #4 tab Continue Budesonide [Pulmicort] 0.5 mg INHALATION RT-BID PRN PRN Reason: Shortness Of Breath Omalizumab [Xolair] 300 mg SQ Q14D Albuterol Nebulized [Ventolin Nebulized] 2.5 mg INHALATION RT-Q4H PRN PRN Reason: Shortness Of Breath Albuterol Sulfate [Albuterol Sulfate Hfa] 2 puff INHALATION RT-Q6H PRN PRN Reason: Shortness Of Breath Budesonide/Formoterol Fumarate [Symbicort 160-4.5 Mcg Inhaler] 2 puff INHALATION RT-BID Changed predniSONE [Deltasone] See Rx Instructions .ROUTE .COMPLEX #15 tab Discharge Medication List Albuterol Sulfate [Albuterol Sulfate Hfa] 2 puff INHALATION RT-Q6H PRN 04/28/23 [History] Budesonide [Pulmicort] 0.5 mg INHALATION RT-BID PRN 04/28/23 [History] Budesonide/Formoterol Fumarate [Symbicort 160-4.5 Mcg Inhaler] 2 puff INHALATION RT-BID 04/28/23 [History] Omalizumab [Xolair] 300 mg SQ Q14D 04/28/23 [History] Albuterol Nebulized [Ventolin Nebulized] 2.5 mg INHALATION RT-Q4H PRN 06/16/23 [History] Acetaminophen Tab [Tylenol] 650 mg PO Q6HR PRN tab 06/19/23 [Rx] Levofloxacin [Levaquin] 750 mg PO DAILY@1300 #4 tab 06/19/23 [Rx] predniSONE [Deltasone] See Rx Instructions .ROUTE .COMPLEX #15 tab 06/19/23 [Rx] Follow up Appointment(s)/Referral(s): Kristian Mir MD [REFERRING] - 1 Week (please call to schedule a new patient appointment) None,Stated [Primary Care Provider] - 1-2 days Adelaide Hoffman MD [STAFF PHYSICIAN] - 07/20/23 2:15 pm Patient Instructions/Handouts: Prednisone (By mouth), Levofloxacin (By mouth) Activity/Diet/Wound Care/Special Instructions: Ptient will need return to work date and physician slip for time in hospital Discharge/Stand Alone Forms: Who Do I Call?, Community Resources, Work/School Release, Personal Vending Supervisor Discharge Disposition: HOME SELF-CARE
--- NOTE | 2023-06-19 16:38 | P.PN ---
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 She lives with her boyfriend and she has several children. She has also a dog pet at home. She is known to have chronic bronchial asthma, severe and she has been managed by Dr. Viri Seo. The patient has been treated with a combination of Xolair injections, Symbicort and Singulair and she also has budesonide nebulized treatments [id number]. Recently, the patient lost her insurance and she was unable to maintain her medications subsequently over the past 1 week, her asthma exacerbated. She is having significant hoarseness. She has also congested cough along with chest tightness and increased wheezing. Her chest x-ray shows no acute abnormalities or pulmonary infiltrates. The viral screen was negative. The white cell count was at 22 and a hemoglobin was at 14.3 with a platelet count of 371. Electrolytes showed a component of anion gap metabolic acidosis with a serum bicarb of 12 and a gap of 14. Sodium level is at 138. The patient is currently on DuoNeb updrafts, IV Solu-Medrol and Symbicort. Slightly improved compared to yesterday. No nausea. No vomiting. No diarrhea. No chest pain. No official diagnosis obstructive sleep apnea. She is obese with a BMI of 35.6. She is a non-smoker. No exposure to respiratory irritants On today's evaluation of 06/18/2023, the patient is feeling essentially the same. Slightly improved. Voice continues to be hoarse. Remains on bronchodilators and steroids. Remains on Levaquin as an empiric antibiotic coverage. No new complaints otherwise for now. She is on room air oxygen. Still bronchospastic and wheezy. On today's evaluation of 06/19/2023 patient is being seen for a follow-up. The patient is gradually improving and seems to be less short of breath less bronchospastic and wheezy. No new complaints otherwise for now. She remains on bronchodilators and steroids. Objective - Vital Signs Vital signs: Vital Signs Temp 98.6 F 06/19/23 07:18 Pulse 77 06/19/23 11:52 Resp 18 06/19/23 11:52 BP 130/86 06/19/23 07:18 Pulse Ox 95 06/19/23 07:18 FiO2 Intake & Output 06/18/23 06/19/23 06/19/23 18:59 06:59 18:59 Output Total 1500 Balance -1500 Output: Urine 1500 Other: Voiding Method Toilet # Voids 2 - Exam GENERAL EXAM: Alert, 33-year-old white female, appearing stated age, comfortable in no apparent distress. HEAD: Normocephalic and atraumatic EYES: Normal reaction of pupils, equal size. NOSE: Clear with pink turbinates. THROAT: No erythema or exudates. NECK: No masses, no JVD. CHEST: No chest wall deformity. LUNGS: Equal air entry with expiratory wheezes heard throughout. Room air. No conversational dyspnea or accessory muscle use.. CVS: S1 and S2 normal with no audible murmur, regular rhythm. No extra heart sounds ABDOMEN: No hepatosplenomegaly, active bowel sounds, no guarding or rigidity. SPINE: No scoliosis or deformity SKIN: No rashes CENTRAL NERVOUS SYSTEM: No focal deficits, tone is normal in all 4 extremities. EXTREMITIES: There is no peripheral edema, clubbing, or cyanosis. Peripheral pulses are intact. - Labs CBC & Chem 7: 06/19/23 05:39 06/19/23 05:39 Labs: Abnormal Lab Results - Last 24 Hours (Table) 06/18/23 06/18/23 06/19/23 Range/Units 17:08 20:13 05:39 RBC 2.86 L (4.10-5.20) X 10*6/uL Hgb 9.5 L (12.0-15.0) g/dL Hct 28.5 L (37.2-46.3) % MCV 99.7 H (80.0-97.0) FL MCH 33.2 H (27.0-32.0) pg RDW 16.9 H (11.5-14.5) % Immature Gran # 0.14 H (0.00-0.04) X 10*3/uL Eosinophils # 0.01 L (0.04-0.35) X 10*3/uL POC Glucose (mg/dL) 169 H 237 H (70-110) mg/dL 06/19/23 06/19/23 Range/Units 07:15 11:54 RBC (4.10-5.20) X 10*6/uL Hgb (12.0-15.0) g/dL Hct (37.2-46.3) % MCV (80.0-97.0) FL MCH (27.0-32.0) pg RDW (11.5-14.5) % Immature Gran # (0.00-0.04) X 10*3/uL Eosinophils # (0.04-0.35) X 10*3/uL POC Glucose (mg/dL) 156 H 143 H (70-110) mg/dL Assessment and Plan Plan: Acute exacerbation of severe chronic bronchial asthma, chest x-ray does not show any focal infiltrates or evidence of pneumonia. Negative for influenza, RSV, COVID. 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 The patient has been able to keep up with her medication because of insurance related difficulties. Acute hoarseness, consider underlying laryngitis. The patient may also have a component of bronchitis. Leukocytosis, doubt infectious etiology History of severe chronic bronchial asthma, normally maintained on a combination of albuterol nebs and albuterol rescue inhaler as needed, Symbicort inhaler, and Xolair injections. Former tobacco dependence Plan: Clinically improving and the patient is being considered for discharge on a prednisone burst taper. She needs to resume her home medications which include a combination of Symbicort, budesonide nebulizer treatments twice a day, Singulair 10 mg p.o. daily Xolair injections. She follows up with Dr. TAMEKA Seo on outpatient basis.
== END 2023-06-19 15:20 | disposition home or self-care (01) ==
LOC: EC 09:44 → 5NMEDONC 11:48
PROVIDERS: ADMIT Internal Medicine; ATTEND Internal Medicine
DX: J45.901 Unspecified asthma with (acute) exacerbation (principal); R65.10 Systemic inflammatory response syndrome (SIRS) of non-infectious origin without acute organ dysfunction; E87.20 Acidosis, unspecified; E87.3 Alkalosis; D72.829 Elevated white blood cell count, unspecified; R49.0 Dysphonia; E66.9 Obesity, unspecified; Z68.35 Body mass index [BMI] 35.0-35.9, adult; Z79.51 Long term (current) use of inhaled steroids; Z88.0 Allergy status to penicillin; Z88.2 Allergy status to sulfonamides; Z11.52 Encounter for screening for COVID-19; Z11.59 Encounter for screening for other viral diseases; Z59.7 Insufficient social insurance and welfare support; Z87.891 Personal history of nicotine dependence
CPT/HCPCS: 96376 ×4; 96361 ×2; 96374; 99285; 36415; 94640 ×8; 93005; 85379; 80053; 80048; 82803; 83735 ×2; 85025 ×2; 85610; 85730; 83036; 87636; 71046; G0378 ×4; J2930 ×4

== ENCOUNTER 2023-10-19 12:12 | Emergency (ER) | payer OTHER ==
[2023-10-19 12:21] VITALS: TEMP 98.3
[2023-10-19] MEDS: IBUPROFEN ORAL SUSP 100 MG/5 ML CUP PO ONE (12:42)
--- NOTE | 2023-10-19 12:42 | ED ---
Fall HPI - General Chief Complaint: Fall Stated Complaint: Fall-R sided pain Time Seen by Provider: 10/19/23 12:21 Source: patient Mode of arrival: ambulatory - History of Present Illness Initial Comments: 33-year-old female who states throughout 8:00 to 9:00 last evening she fell off the side of a hot tub that was on a doctor was about 2 or 3 steps high and landed on grass on her right side. No head neck or back pain but she does complain of some pain to the right shoulder right side of her neck musculature right collarbone and right elbow no other injuries reported the pain is sharp around the left lateral neck and collarbone area she states the pain in some places is 10/10. No other complaints or modifying factors MD Complaint: fall - Related Data Home Medications Medication Instructions Recorded Confirmed Albuterol Sulfate [Albuterol 2 puff INHALATION RT-Q6H PRN 04/28/23 06/16/23 Sulfate Hfa] Budesonide [Pulmicort] 0.5 mg INHALATION RT-BID PRN 04/28/23 06/16/23 Budesonide/Formoterol Fumarate 2 puff INHALATION RT-BID 04/28/23 06/16/23 [Symbicort 160-4.5 Mcg Inhaler] Omalizumab [Xolair] 300 mg SQ Q14D 04/28/23 06/16/23 Albuterol Nebulized [Ventolin 2.5 mg INHALATION RT-Q4H PRN 06/16/23 06/16/23 Nebulized] Previous Rx's Medication Instructions Recorded Acetaminophen Tab [Tylenol] 650 mg PO Q6HR PRN tab 06/19/23 Levofloxacin [Levaquin] 750 mg PO DAILY@1300 #4 tab 06/19/23 predniSONE [Deltasone] See Rx Instructions .ROUTE 06/19/23 .COMPLEX #15 tab Allergies Allergy/AdvReac Type Severity Reaction Status Date / Time amoxicillin Allergy Rash/Hives Verified 10/19/23 12:21 Sulfa (Sulfonamide Allergy Rash/Hives Verified 10/19/23 12:21 Antibiotics) Review of Systems ROS Statement: Those systems with pertinent positive or pertinent negative responses have been documented in the HPI. ROS Other: All systems not noted in ROS Statement are negative. Past Medical History Past Medical History: Asthma Additional Past Medical History / Comment(s): chronic back issues History of Any Multi-Drug Resistant Organisms: MRSA Date of last positivie culture/infection: 2020 MDRO Source:: Left knee Past Surgical History: Section, Cholecystectomy, Tubal Ligation, Uterine Ablation Additional Past Surgical History / Comment(s): laser treatment for genital warts Past Psychological History: No Psychological Hx Reported Smoking Status: Former smoker Past Alcohol Use History: Occasional, Rare Past Drug Use History: Marijuana General Exam - General Exam Comments Initial Comments: This is a well-developed well-nourished awake alert oriented x 4 female with a [place] Coma Scale of 15 General appearance: alert, in no apparent distress Head exam: Present: atraumatic, normocephalic, normal inspection Eye exam: Present: normal appearance, PERRL, EOMI. Absent: scleral icterus, conjunctival injection, periorbital swelling ENT exam: Present: normal exam, mucous membranes moist Neck exam: Present: normal inspection, tenderness, full ROM. Absent: meningismus, lymphadenopathy Respiratory exam: Present: normal lung sounds bilaterally. Absent: respiratory distress, wheezes, rales, rhonchi, stridor Cardiovascular Exam: Present: regular rate, normal rhythm, normal heart sounds. Absent: systolic murmur, diastolic murmur, rubs, gallop, clicks GI/Abdominal exam: Present: soft, normal bowel sounds. Absent: distended, tenderness, guarding, rebound, rigid Extremities exam: Present: normal inspection, full ROM, tenderness (Along the left lateral trapezius musculature no midline tenderness no crepitation no step- off palpation of the), normal capillary refill. Absent: pedal edema, joint swelling, calf tenderness Back exam: Present: normal inspection, full ROM ( palpation of the). Absent: tenderness ( in addition to) Neurological exam: Present: alert, oriented X3, CN II-XII intact Psychiatric exam: Present: normal affect, normal mood Skin exam: Present: warm, dry, intact, normal color. Absent: rash Course Vital Signs 10/19/23 12:13 Temperature 98.3 F Pulse Rate 106 H Respiratory 18 Rate Blood Pressure 136/98 O2 Sat by Pulse 96 Oximetry Medical Decision Making - Medical Decision Making I did discuss the findings with the patient including the negative xray results per my interpretation Was pt. sent in by a medical professional or institution (, PA, [employer], urgent care, hospital, or long term...) When possible be specific @ -No Did you speak to anyone other than the patient for history (EMS, parent, family, police, friend...)? What history was obtained from this source @ -No Did you review nursing and triage notes (agree or disagree)? Why? @ -I reviewed and agree with nursing and triage notes Were old charts reviewed (outside hosp., previous admission, EMS record, old EKG, old radiological studies, urgent care reports/EKG's, long term records)? Report findings @ -No old charts were reviewed Differential Diagnosis (chest pain, altered mental status, abdominal pain women, abdominal pain men, vaginal bleeding, weakness, fever, dyspnea, syncope, headache, dizziness, GI bleed, back pain, seizure, CVA, palpatations, mental health, musculoskeletal)? @ -Multiple contusions EKG interpreted by me (3pts min.). @ -Not indicated X-rays interpreted by me (1pt min.). @ -X-rays of the C-spine clavicle on the right right shoulder and right elbow were interpreted by me showing no evidence of acute fractures or subluxations. No evidence of any joint effusions. CT interpreted by me (1pt min.). @ -None done U/S interpreted by me (1pt. min.). @ -None done What testing was considered but not performed or refused? (CT, X-rays, U/S, labs)? Why? @ -None What meds were considered but not given or refused? Why? @ -None Did you discuss the management of the patient with other professionals (professionals i.e. , PA, [employer], lab, RT, psych nurse, community mental health social worker, reimbursement representative, teacher, supply officer, counseling case manager)? Give summary @ -No Was smoking cessation discussed for >3mins.? @ -No Was critical care preformed (if so, how long)? @ -No Were there social determinants of health that impacted care today? How? (Homelessness, low income, unemployed, alcoholism, drug addiction, transport ation, low edu. Level, literacy, decrease access to med. care, penitentiary, rehab)? @ -No Was there de-escalation of care discussed even if they declined (Discuss DNR or withdrawal of care, Hospice)? DNR status @ -No What co-morbidities impacted this encounter? (DM, HTN, Smoking, COPD, CAD, Cancer, CVA, ARF, Chemo, Hep., AIDS, mental health diagnosis, sleep apnea, morbid obesity)? @ -None Was patient admitted / discharged? Hospital course, mention meds given and route, prescriptions, significant lab abnormalities, going to OR and other pertinent info. @ -Hospital course patient was discharged Undiagnosed new problem with uncertain prognosis? @ -No Drug Therapy requiring intensive monitoring for toxicity (Heparin, Nitro, Insulin, Cardizem)? @ -No Were any procedures done? @ -No Diagnosis/symptom? @ -Multiple contusions, trapezius muscle strain default x 24 to 48 follow-up with her doctor return as needed Acute, or Chronic, or Acute on Chronic? @ -Instructions for ibuprofen up to 800 mg [id number] every 6 hours as needed ice Uncomplicated (without systemic symptoms) or Complicated (systemic symptoms)? @ -Default Side effects of treatment? @ -No Exacerbation, PAcuterogression, or Severe Exacerbation? @ -No Poses a threat to life or bodily function? How? (Chest pain, USA, MS, pneumonia, PE, COPD, DKA, ARF, appy, cholecystitis, CVA, Diverticulitis, Homicidal, Suicidal, threat to staff... and all critical care pts) @ -No Disposition Clinical Impression: Fall, Multiple contusions, Trapezius muscle strain Disposition: HOME SELF-CARE Condition: Good Instructions (If sedation given, give patient instructions): Contusion in Adults (ED), Muscle Strain (ED) Additional Instructions: Ice to affected areas x 24 to 48 hours followed by warm compresses. [id number] ibuprofen up to 800 mg every 6 hours as needed Is patient prescribed a controlled substance at d/c from ED?: No Referrals: None,Stated [REFERRING] - 1-2 days Time of Disposition: 13:30 Decision Date: 10/19/23 Decision Time: 13:55
--- NOTE | 2023-10-19 13:27 | XR ---
EXAMINATION TYPE: XR shoulder complete RT, XR clavicle RT DATE OF EXAM: 10/19/2023 CLINICAL HISTORY: pain TECHNIQUE: Three views of the right shoulder are obtained. 2 views of the right clavicle are also desai bmitted. COMPARISON: None FINDINGS: There is no acute fracture/dislocation evident. The acromioclavicular and glenohumeral jose int spaces appear within normal limits. The visualized ribs are intact and unremarkable. IMPRESSION: 1. There is no acute fracture or dislocation. ICD 10 NO FRACTURE, INITIAL EVALUATION
[2023-10-19 14:07] VITALS: BP 131/84; PULSE 65; RESP 16
--- NOTE | 2023-10-19 14:25 | XR ---
EXAMINATION TYPE: XR elbow complete RT DATE OF EXAM: 10/19/2023 1:14 PM CLINICAL INDICATION:Female, 33 years old with history of trauma; [facility]. Initial encounter. COMPARISON: None. TECHNIQUE: XR elbow complete RT; elbow was examined in AP, lateral, and oblique projections. FINDINGS: No evidence of any acute osseous pathology, joint dislocation, or soft tissue swelling is n oted. No evidence of joint effusion is present. IMPRESSION: No evidence of acute fracture.
--- NOTE | 2023-10-19 14:40 | XR ---
EXAMINATION TYPE: XR cervical spine comp DATE OF EXAM: 10/19/2023 1:14 PM CLINICAL INDICATION:Female, 33 years old with history of trauma; [facility]. Initial encounter. COMPARISON: None TECHNIQUE: The cervical spine was imaged in frontal, lateral, odontoid and bilateral oblique. FINDINGS: The osseous structures show normal alignment without evidence of an acute fracture. No significant ve rtebral body osteophytes or facet joint arthropathy. The intervertebral disk spaces are preserved. Pe dicles are intact. Soft tissues are within normal limits. The odontoid appears intact. IMPRESSION: 1. No fracture or dislocation. 2. No significant degenerative disc disease changes of the cervical spine.
== END 2023-10-19 14:08 | disposition home or self-care (01) ==
LOC: EC 12:12
DX: S29.012A Strain of muscle and tendon of back wall of thorax, initial encounter (principal); Z87.891 Personal history of nicotine dependence; Z88.2 Allergy status to sulfonamides; Z88.1 Allergy status to other antibiotic agents; Z90.49 Acquired absence of other specified parts of digestive tract; X58.XXXA Exposure to other specified factors, initial encounter
CPT/HCPCS: 72050; 99283

== ENCOUNTER 2024-07-31 13:16 | Inpatient (IN) | payer BC, OTHER ==
[2024-07-31] MEDS: IPRATROPIUM-ALBUTEROL 3 ML NEB INHALATION STA ×2 (13:43→16:31)
[2024-07-31] MEDS: MAGNESIUM SULFATE-D5W PMX 1 GM in DEXTROSE/WATER 1 100ML.BAG IVPB STA (14:27)
[2024-07-31] MEDS: methylPREDNISolone SOD SUCCI 125 MG/2 ML VIAL IV STA (14:28)
[2024-07-31 14:31] LABS: Basophils # (A) 0.06 10*3/uL (0.00-0.10); Basophils % (A) 0.7 %; Eosinophils % (A) 11.2 %; HCT 37.1 % (37.2-46.3); HGB 13.3 g/dL (12.0-15.0); Lymphocytes # (A) 2.06 10*3/uL (0.90-5.00); Lymphocytes % (A) 25.7 %; MCHC 35.8 g/dL (32.0-37.0); MCV 83.7 fL (80.0-97.0); Mean Platelet Volume 10.2 fL (9.5-12.2); Monocytes # (A) 0.47 10*3/uL (0.20-1.00); Monocytes % (A) 5.9 %; Neutrophils # (A) 4.52 10*3/uL (1.80-7.70); Neutrophils % (A) 56.3 %; Platelet Count 284 10*3/uL (140-440); RBC 4.43 10*6/uL (4.10-5.20); RDW 12.4 % (11.5-14.5); WBC 8.03 10*3/uL (4.50-10.00)
[2024-07-31 14:58] LABS: ALT 34 U/L (4-34); AST 28 U/L (14-36); African American GFR (CKD) 68 (>60 ml/min/1.73 sqM); Albumin 4.4 g/dL (3.5-5.0); Alkaline Phosphatase 49 U/L (38-126); Anion Gap 11 mmol/L; Blood Urea Nitrogen 16 mg/dL (7-17); Calcium 9.6 mg/dL (8.4-10.2); Carbon Dioxide 22 mmol/L (22-30); Chloride 106 mmol/L (98-107); Glucose 101 mg/dL (74-99); Magnesium 1.9 mg/dL (1.6-2.3); Non-African American GFR(CKD) 59 (>60 ml/min/1.73 sqM); Potassium 3.6 mmol/L (3.5-5.1); Sodium 139 mmol/L (137-145); Total Bilirubin 0.6 mg/dL (0.2-1.3); Total Protein 7.3 g/dL (6.3-8.2); VBG PH 7.46 (7.31-7.41)
--- NOTE | 2024-07-31 15:06 | XR ---
EXAMINATION TYPE: XR chest 2V DATE OF EXAM: 07/31/2024 2:50 PM COMPARISON: Chest radiographs from 06/16/2023. CLINICAL INDICATION: Female, 34 years old with history of difficulty breathing; [facility] TECHNIQUE: XR chest 2V Frontal and lateral views of the chest. FINDINGS: Lungs/Pleura: There is no evidence of pleural effusion, focal consolidation, or pneumothorax. Pulmonary vascularity: Unremarkable. Heart/mediastinum: Cardiomediastinal silhouette is unremarkable. Musculoskeletal: No acute osseous pathology. Other findings: None IMPRESSION: No acute cardiopulmonary disease/process. [facility], , 07/31/2024 3:03 PM
[2024-07-31 15:32] LABS: Influenza A Not Detected (Not Detectd); Influenza B Not Detected (Not Detectd); RSV Not Detected (Not Detectd)
[2024-07-31] MEDS: LACTATED RINGERS 1,000 ML IV ONE (15:52)
[2024-07-31] MEDS ORDERED: ACETAMINOPHEN TAB 325 MG TAB PO PRN (16:10)
[2024-07-31] MEDS ORDERED: ONDANSETRON 4 MG/2 ML VIAL IVP PRN (16:10)
[2024-07-31] MEDS ORDERED: NALOXONE 0.4 MG/ML 1 ML VIAL IV PRN (16:10)
--- NOTE | 2024-07-31 16:14 | ED ---
General Adult HPI - General Chief complaint: Shortness of Breath Stated complaint: ALBA Time Seen by Provider: 07/31/24 13:21 Source: patient, RN notes reviewed, old records reviewed Mode of arrival: ambulatory Limitations: no limitations - History of Present Illness Initial comments: Patient is a 34-year-old female presents emergency department complaining of difficulty in breathing. Has been wheezing. Getting worse over the last few days. Has a history of asthma. 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 She would like to see a new milk collector. Denies any significant productive cough. Denies fevers or chills. No known sick contacts. Presents for further evaluation at this time. Chest pain, nausea, vomiting, diarrhea, abdominal pain. Is not normally on oxygen. - Related Data Home Medications Medication Instructions Recorded Confirmed Albuterol Sulfate [Albuterol 2 puff INHALATION RT-Q6H PRN 04/28/23 07/31/24 Sulfate Hfa] Budesonide [Pulmicort] 0.5 mg INHALATION RT-BID 04/28/23 07/31/24 Albuterol Nebulized [Ventolin 2.5 mg INHALATION RT-Q6H PRN 06/16/23 07/31/24 Nebulized] Montelukast [Singulair] 10 mg PO HS 07/31/24 07/31/24 Allergies Allergy/AdvReac Type Severity Reaction Status Date / Time amoxicillin Allergy Rash/Hives Verified 07/31/24 16:13 Sulfa (Sulfonamide Allergy Rash/Hives Verified 07/31/24 16:13 Antibiotics) Review of Systems ROS Statement: Those systems with pertinent positive or pertinent negative responses have been documented in the HPI. Review of Systems: CONST: Denies fever EYES: Denies blurry vision ENT: Denies nasal congestion C/V: Denies Chest pain RESP: Endorses wheezing, shortness of breath GI: Denies abdominal pain : Denies dysuria SKIN: Denies rash. MSK: Denies joint pain. NEURO: Denies headache ROS Other: All systems not noted in ROS Statement are negative. Past Medical History Past Medical History: Asthma Additional Past Medical History / Comment(s): chronic back issues History of Any Multi-Drug Resistant Organisms: MRSA Date of last positivie culture/infection: 2020 MDRO Source:: Left knee Past Surgical History: Section, Cholecystectomy, Tubal Ligation, Uterine Ablation Additional Past Surgical History / Comment(s): laser treatment for genital warts Past Psychological History: No Psychological Hx Reported Smoking Status: Former smoker Past Alcohol Use History: Occasional, Rare Past Drug Use History: Marijuana General Exam - General Exam Comments Initial Comments: General: Appears in no acute distress. HEAD: Normal with no signs of head trauma. EYES: PERRLA, EOMI, conjunctiva normal, no discharge. Pupils are 3 mm and equal bilaterally. ENT: Hearing grossly intact, normal oropharynx. RESPIRATORY: Diffuse bilateral end expiratory wheezing. Increased work of breathing. Hypoxic on room air. Improved to 92% on 2 L nasal cannula oxygen. C/V: Regular rate and rhythm. S1 and S2 auscultated, no edema, peripheral pulses 2+ and intact throughout ABD: Abd is soft, nontender, nondistended EXT: No obvious deformity. SKIN: No rashes or lesions observed on exposed skin. NEURO: Alert and oriented x 4. Limitations: no limitations Course Vital Signs 07/31/24 07/31/24 07/31/24 13:17 13:41 13:58 Temperature 98.3 F Pulse Rate 119 H 101 H 97 Respiratory 20 Rate Blood Pressure 131/87 O2 Sat by Pulse 92 L Oximetry 07/31/24 07/31/24 07/31/24 14:00 16:24 16:28 Temperature Pulse Rate 86 88 Respiratory 18 16 Rate Blood Pressure 155/85 O2 Sat by Pulse 93 L 99 94 L Oximetry 07/31/24 07/31/24 07/31/24 16:30 16:32 16:41 Temperature Pulse Rate 75 83 97 Respiratory Rate Blood Pressure 155/85 O2 Sat by Pulse 96 Oximetry Medical Decision Making - Medical Decision Making Was pt. sent in by a medical professional or institution (, PA, H[employer]ATOR, urgent care, hospital, or snf...) When possible be specific @ -No Did you speak to anyone other than the patient for history (EMS, parent, family, police, friend...)? What history was obtained from this source @ -No Did you review nursing and triage notes (agree or disagree)? Why? @ -I reviewed and agree with nursing and triage notes Were old charts reviewed (outside hosp., previous admission, EMS record, old EKG, old radiological studies, urgent care reports/EKG's, snf records)? Report findings @ -No old charts were reviewed Differential Diagnosis (chest pain, altered mental status, abdominal pain women, abdominal pain men, vaginal bleeding, weakness, fever, dyspnea, syncope, headache, dizziness, GI bleed, back pain, seizure, CVA, palpatations, mental health, musculoskeletal)? @ -Asthma, pneumonia, viral syndrome. This list is not all inclusive. EKG interpreted by me (3pts min.). @ -As above X-rays interpreted by me (1pt min.). @ -Chest x-ray reveals no evidence of acute cardiopulmonary process or infection. CT interpreted by me (1pt min.). @ -None done U/S interpreted by me (1pt. min.). @ -None done What testing was considered but not performed or refused? (CT, X-rays, U/S, labs)? Why? @ -None What meds were considered but not given or refused? Why? @ -None Did you discuss the management of the patient with other professionals (professionals i.e. , PA, H[employer] P[employer] OPERATOR, lab, RT, psych nurse, home health care social worker, editor managing newspaper, teacher, staff command and control officer, renal case manager)? Give summary @ -Discussed with Dr. Abad who accepted the admission. Was smoking cessation discussed for >3mins.? @ -No Was critical care preformed (if so, how long)? @ -Yes, 35 minutes Were there social determinants of health that impacted care today? How? (Homelessness, low income, unemployed, alcoholism, drug addiction, transportation, low edu. Level, literacy, decrease access to med. care, skilled nursing, rehab)? @ -No Was there de-escalation of care discussed even if they declined (Discuss DNR or withdrawal of care, Hospice)? DNR status @ -No What co-morbidities impacted this encounter? (DM, HTN, Smoking, COPD, CAD, Cancer, CVA, ARF, Chemo, Hep., AIDS, mental health diagnosis, sleep apnea, morbid obesity)? @ -Asthma Was patient admitted / discharged? Hospital course, mention meds given and route, prescriptions, significant lab abnormalities, going to OR and other pertinent info. @ -Based on patient's presentation physical exam, presents emergency department with an asthma exacerbation. We will obtain basic labs, infectious labs. Patient be symptomatically with IV steroids, fluids, as well as breathing treatments. She was in agreement this plan. Patient is hypoxic on room air and normally does not require oxygen. Remainder the vital signs remarkable for mild tachycardia likely secondary to inhaler use as well as dehydration. EKG showed no signs of acute ischemia. Chest x-ray unremarkable. Laboratory studies are all within acceptable limits, with possible mild JENNY with a creatinine of 1.21. On reevaluation, patient still requiring oxygen however her work of breathing is improved. I related like to admit to the hospital. She was in agreement this plan. Will continue with IV steroids, breathing treatments, as well as IV fluids. She was in agreement this plan. Pulmonology consulted. I spoke with the admitting provider, Dr. Abad Undiagnosed new problem with uncertain prognosis? @ -No Drug Therapy requiring intensive monitoring for toxicity (Heparin, Nitro, Insulin, Cardizem)? @ -No Were any procedures done? @ -No Diagnosis/symptom? @ -Asthma, hypoxic respiratory Acute, or Chronic, or Acute on Chronic? @ -Acute Uncomplicated (without systemic symptoms) or Complicated (systemic symptoms)? @ -Complicated Side effects of treatment? @ -No Exacerbation, Progression, or Severe Exacerbation? @ -No Poses a threat to life or bodily function? How? (Chest pain, USA, CA, pneumonia, PE, COPD, DKA, ARF, appy, cholecystitis, CVA, Diverticulitis, Homicidal, Suicidal, threat to staff... and all critical care pts) @ -Yes - Lab Data Result diagrams: 07/31/24 14:32 07/31/24 14:32 Lab Results 07/31/24 07/31/24 07/31/24 Range/Units 14:32 14:32 14:32 WBC 8.03 (4.50-10.00) 10*3/uL RBC 4.43 (4.10-5.20) 10*6/uL Hgb 13.3 (12.0-15.0) g/dL Hct 37.1 L (37.2-46.3) % MCV 83.7 (80.0-97.0) fL MCH 30.0 (27.0-32.0) pg MCHC 35.8 (32.0-37.0) g/dL Plt Count 284 (140-440) 10*3/uL MPV 10.2 (9.5-12.2) fL Immature Gran % (Auto) 0.2 % Neutrophils % 56.3 % Lymphocytes % 25.7 % Monocytes % 5.9 % Eosinophils % 11.2 % Basophils % 0.7 % Immature Gran # 0.02 (0.00-0.04) 10*3/uL Neutrophils # 4.52 (1.80-7.70) 10*3/uL Lymphocytes # 2.06 (0.90-5.00) 10*3/uL Monocytes # 0.47 (0.20-1.00) 10*3/uL Eosinophils # 0.90 H (0.04-0.35) 10*3/uL Basophils # 0.06 (0.00-0.10) 10*3/uL VBG pH (7.31-7.41) VBG pCO2 (37-51) mmHg VBG HCO3 (24-28) mmol/L Sodium 139 (137-145) mmol/L Potassium 3.6 (3.5-5.1) mmol/L Chloride 106 (98-107) mmol/L Carbon Dioxide 22 (22-30) mmol/L Anion Gap 11 mmol/L BUN 16 (7-17) mg/dL Creatinine 1.21 H (0.52-1.04) mg/dL Est GFR (CKD-EPI)AfAm 68 (>60 ml/min/1.73 sqM) Est GFR (CKD-EPI)NonAf 59 (>60 ml/min/1.73 sqM) Glucose 101 H (74-99) mg/dL Plasma Lactic Acid Sathish 1.1 (0.7-2.0) mmol/L Calcium 9.6 (8.4-10.2) mg/dL Magnesium 1.9 (1.6-2.3) mg/dL Total Bilirubin 0.6 (0.2-1.3) mg/dL AST 28 (14-36) U/L ALT 34 (4-34) U/L Alkaline Phosphatase 49 (38-126) U/L Total Protein 7.3 (6.3-8.2) g/dL Albumin 4.4 (3.5-5.0) g/dL Influenza Type A (PCR) (Not Detectd) Influenza Type B (PCR) (Not Detectd) RSV (PCR) (Not Detectd) SARS-CoV-2 (PCR) (Not Detectd) 05/04/25 05/04/25 Range/Units 14:32 14:32 WBC (4.50-10.00) 10*3/uL RBC (4.10-5.20) 10*6/uL Hgb (12.0-15.0) g/dL Hct (37.2-46.3) % MCV (80.0-97.0) fL MCH (27.0-32.0) pg MCHC (32.0-37.0) g/dL Plt Count (140-440) 10*3/uL MPV (9.5-12.2) fL Immature Gran % (Auto) % Neutrophils % % Lymphocytes % % Monocytes % % Eosinophils % % Basophils % % Immature Gran # (0.00-0.04) 10*3/uL Neutrophils # (1.80-7.70) 10*3/uL Lymphocytes # (0.90-5.00) 10*3/uL Monocytes # (0.20-1.00) 10*3/uL Eosinophils # (0.04-0.35) 10*3/uL Basophils # (0.00-0.10) 10*3/uL VBG pH 7.46 H (7.31-7.41) VBG pCO2 35 L (37-51) mmHg VBG HCO3 25 (24-28) mmol/L Sodium (137-145) mmol/L Potassium (3.5-5.1) mmol/L Chloride (98-107) mmol/L Carbon Dioxide (22-30) mmol/L Anion Gap mmol/L BUN (7-17) mg/dL Creatinine (0.52-1.04) mg/dL Est GFR (CKD-EPI)AfAm (>60 ml/min/1.73 sqM) Est GFR (CKD-EPI)NonAf (>60 ml/min/1.73 sqM) Glucose (74-99) mg/dL Plasma Lactic Acid Sathish (0.7-2.0) mmol/L Calcium (8.4-10.2) mg/dL Magnesium (1.6-2.3) mg/dL Total Bilirubin (0.2-1.3) mg/dL AST (14-36) U/L ALT (4-34) U/L Alkaline Phosphatase (38-126) U/L Total Protein (6.3-8.2) g/dL Albumin (3.5-5.0) g/dL Influenza Type A (PCR) Not Detected (Not Detectd) Influenza Type B (PCR) Not Detected (Not Detectd) RSV (PCR) Not Detected (Not Detectd) SARS-CoV-2 (PCR) Not Detected (Not Detectd) - EKG Data -: EKG Interpreted by Me EKG Comments: 12-lead Electrocardiogram Interpretation Note EKG was reviewed and interpreted by myself. 12-lead ECG performed at 1344 is interpreted by me as revealing normal sinus rhythm at a rate of 90 beats per minute. [place] is normal. NH interval is 212 ms, QRS durations 102 ms, QTc is 410 ms.. There were no ST or T wave abnormalities to suggest myocardial ischemia or injury. R wave progression across the precordium was satisfactory. By my interpretation this EKG is non-diagnostic for acute ischemia. Critical Care Time Critical Care Time: Yes Total Critical Care Time: 35 Disposition Clinical Impression: Asthma, Hypoxic respiratory failure Disposition: ADMITTED IP TO THIS [facility] Condition: Stable Time of Disposition: 16:00
[2024-07-31] MEDS: LACTATED RINGERS 1,000 ML IV SCH (17:52)
[2024-07-31] MEDS: IPRATROPIUM-ALBUTEROL 3 ML NEB INHALATION SCH (19:36)
[2024-07-31] MEDS: methylPREDNISolone SOD SUCCI 40 MG/ML 1 ML VIAL IV SCH (23:45)
[2024-08-01] MEDS: IPRATROPIUM-ALBUTEROL 3 ML NEB INHALATION PRN
--- NOTE | 2024-08-01 03:35 | P.CNPUL ---
History of Present Illness Consult date: 08/01/24 Requesting physician: Jamal Munoz Reason for consult: asthma Chief complaint: Shortness of breath, wheezing, cough History of present illness: Patient is a 34-year-old female with past medical history significant for severe chronic bronchial asthma. Her established draw machine operator is Dr. Haydee Seo; however, she reportedly wants to see a different draw machine operator. Her most recent hospitalization for asthma was May,. Uses nebulized budesonide and albuterol inhaler as needed. Previously, maintained on Xolair injections, however, her insurance no longer covers these. Presents to the emergency department yesterday afternoon with difficulty in breathing. She was placed on 2 L of supplemental oxygen, given several DuoNeb treatments, and loaded with IV Solu-Medrol. Workup in the ED including a chest x-ray which did not show any acute cardiopulmonary process. Viral screen negative for influenza A/B, RSV, COVID. CBC unremarkable for leukocytosis. CMP: Sodium 139, potassium 3.6, chloride 106, serum bicarb 22, BUN 16, creatinine 1.21, glucose 101. Lactic 1.1. LFTs not elevated. Normal saline infusing at 130 mL/h. Patient currently being evaluated on the general medical floor. Endorses progressively worsening shortness of breath over the last 4 to 5 days. Associated wheezing and chest tightness. Also, dry nonproductive cough, particularly worse at night and early interventionist. Denies any sick contacts. Denies any sputum production, hemoptysis, fevers or chills. Denies any nausea, vomiting, diarrhea. Admits to occasionally smoking marijuana, but no tobacco products. She works at the [employer]. Getting her getting medications has been an issue, and she has recently ran out of her Singulair. Current vital signs: Temperature 98.5 F, heart rate 100 bpm, blood pressure 146/81 mmHg, nontachypneic, SpO2 recorded at 96% on 2 L/min nasal cannula. Review of Systems REVIEW OF SYSTEMS: CONSTITUTIONAL: Denies any recent significant weight loss or weight gain. EYES: Denies change in vision. EARS, NOSE, MOUTH, THROAT: Denies headaches, denies sore throat. CARDIOVASCULAR: Denies chest pain, palpitations or syncopal episodes. RESPIRATORY: See HPI GASTROINTESTINAL: Denies change in appetite, abdominal pain, nausea and vomiting, or diarrhea GENITOURINARY: Denies hematuria, denies infections. MUSKULOSKELETAL: Denies pain, denies swelling. INTEGUMENTARY: Denies rash, denies eczema. NEUROLOGICAL: Denies recent memory loss, no recent seizure activity. PSYCHIATRIC: Denies anxiety, denies depression. HEMATOLOGIC/LYMPHATIC: Denies anemia, denies enlarged lymph node Past Medical History Past Medical History: Asthma Additional Past Medical History / Comment(s): chronic back issues History of Any Multi-Drug Resistant Organisms: MRSA Date of last positivie culture/infection: 2020 MDRO Source:: Left knee Past Surgical History: Section, Cholecystectomy, Tubal Ligation, Uterine Ablation Additional Past Surgical History / Comment(s): laser treatment for genital warts Past Psychological History: No Psychological Hx Reported Smoking Status: Former smoker Past Alcohol Use History: Occasional, Rare Past Drug Use History: Marijuana Additional Drug Use History / Comment(s): daily marijuana use Medications and Allergies Home Medications Medication Instructions Recorded Confirmed Type Albuterol Sulfate [Albuterol 2 puff INHALATION RT-Q6H PRN 04/28/23 07/31/24 History Sulfate Hfa] Budesonide [Pulmicort] 0.5 mg INHALATION RT-BID 04/28/23 07/31/24 History Albuterol Nebulized [Ventolin 2.5 mg INHALATION RT-Q6H PRN 06/16/23 07/31/24 History Nebulized] Montelukast [Singulair] 10 mg PO HS 07/31/24 07/31/24 History Allergies Allergy/AdvReac Type Severity Reaction Status Date / Time amoxicillin Allergy Rash/Hives Verified 07/31/24 16:13 Sulfa (Sulfonamide Allergy Rash/Hives Verified 07/31/24 16:13 Antibiotics) Physical Exam Vitals: Vital Signs Temp Pulse Pulse Resp BP BP Pulse Ox 08/01/24 01:13 98.5 F 100 16 146/81 96 08/01/24 00:11 96 08/01/24 00:00 94 07/31/24 19:46 96 07/31/24 19:37 98.3 F 90 16 140/85 93 L 07/31/24 19:36 96 07/31/24 17:46 98.9 F 07/31/24 16:41 97 07/31/24 16:32 83 07/31/24 16:30 75 155/85 96 07/31/24 16:28 88 155/85 94 L 07/31/24 16:24 86 16 99 07/31/24 14:00 18 93 L 07/31/24 13:58 97 07/31/24 13:41 101 H 07/31/24 13:17 98.3 F 119 H 20 131/87 92 L Intake and Output 07/31/24 07/31/24 08/01/24 14:59 22:59 06:59 Other: Weight 103.419 kg 103.419 kg GENERAL EXAM: Alert, 33-year-old white female, appearing stated age, comfortable in no apparent distress. HEAD: Normocephalic and atraumatic EYES: Normal reaction of pupils, equal size. NOSE: Clear with pink turbinates. THROAT: No erythema or exudates. NECK: No masses, no JVD. CHEST: No chest wall deformity. LUNGS: Equal air entry with expiratory wheezes heard throughout. On 2 L/min nasal cannula. No conversational dyspnea or accessory muscle use.. CVS: S1 and S2 normal with no audible murmur, regular rhythm. No extra heart sounds ABDOMEN: No hepatosplenomegaly, active bowel sounds, no guarding or rigidity. SPINE: No scoliosis or deformity SKIN: No rashes CENTRAL NERVOUS SYSTEM: No focal deficits, tone is normal in all 4 extremities. EXTREMITIES: There is no peripheral edema, clubbing, or cyanosis. Peripheral pulses are intact. Results - Laboratory Findings CBC and BMP: 07/31/24 14:32 07/31/24 14:32 Abnormal lab findings: Abnormal Labs 07/31/24 07/31/24 07/31/24 14:32 14:32 14:32 Hct 37.1 L Eosinophils # 0.90 H VBG pH 7.46 H VBG pCO2 35 L Creatinine 1.21 H Glucose 101 H - Diagnostic Findings Chest x-ray: image reviewed Assessment and Plan Assessment: Acute exacerbation of severe chronic bronchial asthma, chest x-ray does not show any acute cardiopulmonary process. Viral 4 Plex negative for influenza A/B, RSV, COVID. Acute hypoxemic respiratory failure, currently on 2 L/min nasal cannula, secondary to above Acute kidney injury, creatinine 1.21 Marijuana smoker Plan: Continue supplemental oxygen maintain oxygen saturation of 94% or greater Continue combination of Symbicort inhaler, DuoNebs [id number], Lee, and IV Solu-Medrol Exacerbation possibly secondary to medication noncompliance and financial issues. Will hold off on antibiotics Will continue to follow I have personally seen and examined the patient, performed the documentation and the assessment and plan as written. Number of minutes spent on the visit:20 Time with Patient: Greater than 30
[2024-08-01 07:09] LABS: Glucose,Whole Blood 145 mg/dL (70-110)
[2024-08-01 08:29] LABS: Basophils # (A) 0.01 X 10*3/uL (0.00-0.10); Basophils % (A) 0.1 %; Eosinophils # (A) 0 X 10*3/uL (0.04-0.35); Eosinophils % (A) 0 %; HCT 39.8 % (37.2-46.3); HGB 13.6 g/dL (12.0-15.0); Lymphocytes # (A) 0.88 X 10*3/uL (0.90-5.00); Lymphocytes % (A) 7.3 %; MCH 29.4 pg (27.0-32.0); MCHC 34.2 g/dL (32.0-37.0); MCV 86.1 FL (80.0-97.0); Mean Platelet Volume 10.9 FL (9.5-12.2); Monocytes # (A) 0.15 X 10*3/uL (0.20-1.00); Monocytes % (A) 1.3 %; NRBC Per 100 WBC 0 X 10*3/uL (0.00-0.01); Neutrophils % (A) 90.8 %; Platelet Count 325 X 10*3/uL (140-440); RBC 4.62 X 10*6/uL (4.10-5.20); RDW 12.7 % (11.5-14.5)
[2024-08-01 08:31] LABS: ALT 35 U/L (8-44); AST 22 U/L (13-35); Albumin 4.5 g/dL (3.8-4.9); Albumin/Globulin Ratio 1.61 Ratio (1.60-3.17); Alkaline Phosphatase 58 U/L (41-126); BUN/Creat Ratio 20.12 Ratio (12.00-20.00); Blood Urea Nitrogen 16.1 mg/dL (9.0-27.0); Calcium 9.6 mg/dL (8.7-10.3); Carbon Dioxide 18.9 mmol/L (21.6-31.8); Chloride 105 mmol/L (96-109); Globulin 2.8 g/dL (1.6-3.3); Glucose 144 mg/dL (70-110); Potassium 4.6 mmol/L (3.5-5.5); Sodium 136 mmol/L (135-145); Total Bilirubin 0.3 mg/dL (0.3-1.2); Total Protein 7.3 g/dL (6.2-8.2)
[2024-08-01] MEDS: SYMBICORT 160-4.5 MCG INHALER INHALATION SCH (08:31)
[2024-08-01] MEDS: PANTOPRAZOLE 40 MG TABLET PO SCH (08:33)
[2024-08-01] MEDS: ENOXAPARIN 40 MG/0.4 ML SYRINGE SQ SCH (08:33)
[2024-08-01] MEDS: NYSTATIN 100,000 UNIT/ML SUSP 500,000 UNIT/5 ML CUP PO SCH (08:59)
[2024-08-01 12:09] LABS: Glucose,Whole Blood 113 mg/dL (70-110)
[2024-08-01 17:07] LABS: Glucose,Whole Blood 175 mg/dL (70-110)
[2024-08-01] MEDS: MONTELUKAST 10 MG TAB PO SCH (20:13)
[2024-08-01 20:20] LABS: Glucose,Whole Blood 174 mg/dL (70-110)
--- NOTE | 2024-08-01 21:50 | P.HPIM ---
History of Present Illness H&P Date: 08/01/24 Chief Complaint: Shortness of breath Patient is a 34-year-old female with known history of asthma and chronic back pain and daily marijuana use presented with complaints of difficulty in breathing since yesterday afternoon. On admission patient was requiring 2 L of oxygen via nasal cannula. Patient does have severe bronchial asthma. Patient was previously on Xolair. Currently on albuterol inhaler and nebulizer with good insight. In the ER patient had chest x-ray showed no acute cardiopulmonary process. EKG showed sinus rhythm. Laboratory data showed WBC 8.0 hemoglobin 13.3 and platelets 284 sodium 139 potassium 3.6 chloride 106 bicarb is 22 BUN 16 and creatinine 1.21 and blood sugar 101 liver enzymes are not elevated. Magnesium 1.9 and influenza A B RSV and COVID-19 PCR not detected. Patient has been afebrile on admission. Review of Systems Constitutional: Patient denies any fever or chills . No generalized weakness or weight loss. Abdomen: Patient denied nausea vomiting and diarrhea and abdominal pain. Cardiovascular: Patient denies any chest pain. Positive for short of breath. No palpitations. No leg swelling Respiratory: patient does have cough without sputum production. Positive for shortness of breath Neurologic: Patient denied any numbness or tingling. no headache. Musculoskeletal: Patient denies any complaints of joint swelling or deformity. Skin: Negative Psychiatric: Negative Endocrine: No heat or cold intolerance. No recent weight gain. Genitourinary: No dysuria or hematuria. All other 14 point ROS negative except the above Past Medical History Past Medical History: Asthma Additional Past Medical History / Comment(s): chronic back issues History of Any Multi-Drug Resistant Organisms: MRSA Date of last positivie culture/infection: 2020 MDRO Source:: Left knee Past Surgical History: Section, Cholecystectomy, Tubal Ligation, Uterine Ablation Additional Past Surgical History / Comment(s): laser treatment for genital warts Past Psychological History: No Psychological Hx Reported Smoking Status: Former smoker Past Alcohol Use History: Occasional, Rare Past Drug Use History: Marijuana Additional Drug Use History / Comment(s): daily marijuana use Medications and Allergies Home Medications Medication Instructions Recorded Confirmed Type Albuterol Sulfate [Albuterol 2 puff INHALATION RT-Q6H PRN 04/28/23 07/31/24 H istory Sulfate Hfa] Budesonide [Pulmicort] 0.5 mg INHALATION RT-BID 04/28/23 07/31/24 History Albuterol Nebulized [Ventolin 2.5 mg INHALATION RT-Q6H PRN 06/16/23 07/31/24 History Nebulized] Montelukast [Singulair] 10 mg PO HS 07/31/24 07/31/24 History Allergies Allergy/AdvReac Type Severity Reaction Status Date / Time amoxicillin Allergy Rash/Hives Verified 07/31/24 16:13 Sulfa (Sulfonamide Allergy Rash/Hives Verified 07/31/24 16:13 Antibiotics) Physical Exam Vitals: Vital Signs Temp Pulse Pulse Resp BP BP Pulse Ox 08/01/24 08:42 94 16 08/01/24 08:31 95 16 95 08/01/24 07:05 97.9 F 90 20 131/84 97 08/01/24 04:19 96 08/01/24 04:07 95 08/01/24 01:13 98.5 F 100 16 146/81 96 08/01/24 00:11 96 08/01/24 00:00 94 07/31/24 19:46 96 07/31/24 19:37 98.3 F 90 16 140/85 93 L 07/31/24 19:36 96 07/31/24 17:46 98.9 F 07/31/24 16:41 97 07/31/24 16:32 83 07/31/24 16:30 75 155/85 96 07/31/24 16:28 88 155/85 94 L 07/31/24 16:24 86 16 99 07/31/24 14:00 18 93 L 07/31/24 13:58 97 07/31/24 13:41 101 H 07/31/24 13:17 98.3 F 119 H 20 131/87 92 L Intake and Output 07/31/24 08/01/24 08/01/24 22:59 06:59 14:59 Other: # Voids 3 Weight 103.419 kg PHYSICAL EXAMINATION: Patient is lying in the bed comfortably, no acute distress, awake alert and oriented.. HEENT: Normocephalic. Neck is supple. Pupils reactive. Nostrils clear. Oral cavity is moist. Neck reveals no JVD, carotid bruits, or thyromegaly. CHEST EXAMINATION: Trachea is central. Symmetrical expansion. Bilateral expiratory wheezing and scattered rhonchi. CARDIAC: Normal S1, S2 with no gallops. No murmurs ABDOMEN: Soft. Bowel sounds normal. No organomegaly. No abdominal bruits. Extremities: reveal no edema. No clubbing or cyanosis Neurologically awake, alert, oriented x3 with well-coordinated movements. No focal deficits noted Skin: No rash or skin lesions. Psychiatric: Coperative. Nonsuicidal Musculoskeletal: No joint swelling or deformity. Normal range of motion. Results CBC & Chem 7: 08/01/24 03:53 08/01/24 03:53 Labs: Abnormal Lab Results - Last 24 Hours (Table) 07/31/24 07/31/24 07/31/24 Range/Units 14:32 14:32 14:32 WBC (4.50-10.00) X 10*3/uL Hct 37.1 L (37.2-46.3) % Immature Gran # (0.00-0.04) X 10*3/uL Neutrophils # (1.80-7.70) X 10*3/uL Lymphocytes # (0.90-5.00) X 10*3/uL Monocytes # (0.20-1.00) X 10*3/uL Eosinophils # 0.90 H (0.04-0.35) 10*3/uL VBG pH 7.46 H (7.31-7.41) VBG pCO2 35 L (37-51) mmHg Carbon Dioxide (21.6-31.8) mmol/L Anion Gap (4.00-12.00) mmol/L Creatinine 1.21 H (0.52-1.04) mg/dL BUN/Creatinine Ratio (12.00-20.00) Ratio Glucose 101 H (74-99) mg/dL POC Glucose (mg/dL) (70-110) mg/dL 08/01/24 08/01/24 08/01/24 Range/Units 03:53 03:53 07:07 WBC 12.00 H (4.50-10.00) X 10*3/uL Hct (37.2-46.3) % Immature Gran # 0.06 H (0.00-0.04) X 10*3/uL Neutrophils # 10.90 H (1.80-7.70) X 10*3/uL Lymphocytes # 0.88 L (0.90-5.00) X 10*3/uL Monocytes # 0.15 L (0.20-1.00) X 10*3/uL Eosinophils # 0 L (0.04-0.35) 10*3/uL VBG pH (7.31-7.41) VBG pCO2 (37-51) mmHg Carbon Dioxide 18.9 L (21.6-31.8) mmol/L Anion Gap 12.10 H (4.00-12.00) mmol/L Creatinine (0.52-1.04) mg/dL BUN/Creatinine Ratio 20.12 H (12.00-20.00) Ratio Glucose 144 H (74-99) mg/dL POC Glucose (mg/dL) 145 H (70-110) mg/dL Thrombosis Risk Factor Assmnt - DVT/VTE Prophylaxis DVT/VTE Prophylaxis: Pharmacologic Prophylaxis ordered Assessment and Plan Assessment: Acute exacerbation of bronchial asthma Acute hypoxemic respiratory failure requiring 2 L oxygen via nasal cannula Acute kidney injury likely prerenal. Creatinine 1.2 on admission improved Marijuana use on daily basis GI prophylaxis with PPI and Lovenox for DVT prophylaxis Plan: Patient will be continued on oxygen at 2 L per nasal cannula and titrate down to room air. Continue with DuoNebs and Symbicort as well as methylprednisolone IV 40 mg Q8 hourly. Pulmonary is on board. Continue to follow closely.
[2024-08-02 07:07] LABS: Glucose,Whole Blood 144 mg/dL (70-110)
[2024-08-02 08:38] LABS: Basophils # (A) 0.02 X 10*3/uL (0.00-0.10); Basophils % (A) 0.1 %; Eosinophils # (A) 0 X 10*3/uL (0.04-0.35); Eosinophils % (A) 0 %; HCT 40.4 % (37.2-46.3); HGB 13.6 g/dL (12.0-15.0); Lymphocytes # (A) 1.09 X 10*3/uL (0.90-5.00); Lymphocytes % (A) 5.4 %; MCH 29.3 pg (27.0-32.0); MCHC 33.7 g/dL (32.0-37.0); MCV 87.1 FL (80.0-97.0); Mean Platelet Volume 10.7 FL (9.5-12.2); Monocytes # (A) 0.52 X 10*3/uL (0.20-1.00); Monocytes % (A) 2.6 %; NRBC Per 100 WBC 0 X 10*3/uL (0.00-0.01); Neutrophils # (A) 18.64 X 10*3/uL (1.80-7.70); Neutrophils % (A) 91.4 %; Platelet Count 387 X 10*3/uL (140-440); RBC 4.64 X 10*6/uL (4.10-5.20); RDW 13.3 % (11.5-14.5); WBC 20.37 X 10*3/uL (4.50-10.00)
[2024-08-02 08:53] LABS: BUN/Creat Ratio 21.38 Ratio (12.00-20.00); Blood Urea Nitrogen 17.1 mg/dL (9.0-27.0); Calcium 9.9 mg/dL (8.7-10.3); Carbon Dioxide 18.2 mmol/L (21.6-31.8); Chloride 104 mmol/L (96-109); Glucose 162 mg/dL (70-110); Potassium 4.8 mmol/L (3.5-5.5); Sodium 137 mmol/L (135-145)
[2024-08-02] MEDS: predniSONE 20 MG TAB PO SCH (09:22)
[2024-08-02 12:19] LABS: Glucose,Whole Blood 191 mg/dL (70-110)
--- NOTE | 2024-08-02 12:28 | P.PN ---
Subjective Progress Note Date: 08/02/24 Patient is a 34-year-old female with past medical history significant for severe chronic bronchial asthma. 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 Haydee Seo; however, she reportedly wants to see a different laborer beam house. Her most recent hospitalization for asthma was May,. Uses nebulized budesonide and albuterol inhaler as needed. Previously, maintained on Xolair injections, however, her insurance no longer covers these. Presents to the emergency department yesterday afternoon with difficulty in breathing. She was placed on 2 L of supplemental oxygen, given several DuoNeb treatments, and loaded with IV Solu-Medrol. Workup in the ED including a chest x-ray which did not show any acute cardiopulmonary process. Viral screen negative for influenza A/B, RSV, COVID. CBC unremarkable for leukocytosis. CMP: Sodium 139, potassium 3.6, chloride 106, serum bicarb 22, BUN 16, creatinine 1.21, glucose 101. Lactic 1.1. LFTs not elevated. Normal saline infusing at 130 mL/h. Patient currently being evaluated on the general medical floor. Endorses progressively worsening shortness of breath over the last 4 to 5 days. Associated wheezing and chest tightness. Also, dry nonproductive cough, particularly worse at night and electroless plater. Denies any sick contacts. Denies any sputum production, hemoptysis, fevers or chills. Denies any nausea, vomiting, diarrhea. Admits to occasionally smoking marijuana, but no tobacco products. She works at the [employer]. Getting her getting medications has been an issue, and she has recently ran out of her Singulair. Current vital signs: Temperature 98.5 F, heart rate 100 bpm, blood pressure 146/81 mmHg, nontachypneic, SpO2 recorded at 96% on 2 L/min nasal cannula. The patient is seen today August 02, 2024 in follow-up on the regular medical floor. She is currently sitting up in bed. Awake and alert in no acute distress. Maintaining good O2 saturations in the 90s on room air oxygen. She is feeling quite a bit better today compared to yesterday. White count 20.3. Hemoglobin 13.6. Platelets 387. Sodium 137. Potassium 4.8. Bicarb 18. BUN 17. Creatinine 0.8. Glucose 162. She is continued on DuoNeb inhalations, Symbicort, Singulair, Solu-Medrol. Lovenox for DVT prophylaxis. Objective - Vital Signs Vital signs: Vital Signs Temp 98.0 F 08/02/24 07:20 Pulse 77 08/02/24 11:34 Resp 18 08/02/24 11:34 BP 111/70 08/02/24 07:20 Pulse Ox 100 08/02/24 07:57 FiO2 Intake & Output 08/01/24 08/02/24 08/02/24 18:59 06:59 18:59 Intake Total 540 480 Balance 540 480 Intake: Oral 540 480 Other: Voiding Method Toilet # Voids 3 - Exam GENERAL EXAM: Alert, active, very pleasant 34-year-old female, on room air oxygen, comfortable in no apparent distress. HEAD: Normocephalic. EYES: Normal reaction of pupils, equal size. NOSE: Clear with pink turbinates. THROAT: No erythema or exudates. NECK: No masses, no JVD. CHEST: No chest wall deformity. LUNGS: Equal air entry with faint end expiratory wheeze. CVS: S1 and S2 normal with no audible murmur, regular rhythm. ABDOMEN: No hepatosplenomegaly, normal bowel sounds, no guarding or rigidity. SPINE: No scoliosis or deformity SKIN: No rashes CENTRAL NERVOUS SYSTEM: No focal deficits, tone is normal in all 4 extremities. EXTREMITIES: There is no peripheral edema. No clubbing, no cyanosis. Peripheral pulses are intact. - Labs CBC & Chem 7: 08/02/24 05:04 08/02/24 05:04 Labs: Abnormal Lab Results - Last 24 Hours (Table) 08/01/24 08/01/24 08/02/24 Range/Units 17:05 20:19 05:04 WBC 20.37 H (4.50-10.00) X 10*3/uL Immature Gran # 0.10 H (0.00-0.04) X 10*3/uL Neutrophils # 18.64 H (1.80-7.70) X 10*3/uL Eosinophils # 0 L (0.04-0.35) X 10*3/uL Carbon Dioxide (21.6-31.8) mmol/L Anion Gap (4.00-12.00) mmol/L BUN/Creatinine Ratio (12.00-20.00) Ratio Glucose (70-110) mg/dL POC Glucose (mg/dL) 175 H 174 H (70-110) mg/dL 08/02/24 08/02/24 08/02/24 Range/Units 05:04 07:06 12:17 WBC (4.50-10.00) X 10*3/uL Immature Gran # (0.00-0.04) X 10*3/uL Neutrophils # (1.80-7.70) X 10*3/uL Eosinophils # (0.04-0.35) X 10*3/uL Carbon Dioxide 18.2 L (21.6-31.8) mmol/L Anion Gap 14.80 H (4.00-12.00) mmol/L BUN/Creatinine Ratio 21.38 H (12.00-20.00) Ratio Glucose 162 H (70-110) mg/dL POC Glucose (mg/dL) 144 H 191 H (70-110) mg/dL Assessment and Plan Assessment: Acute exacerbation of severe chronic bronchial asthma, chest x-ray does not show any acute cardiopulmonary process. Viral 4 Plex negative for influenza A/B, RSV, COVID. Acute hypoxemic respiratory failure, currently on 2 L/min nasal cannula, secondary to above Acute kidney injury, creatinine 1.21 Marijuana smoker Plan: The patient was seen and evaluated Labs and medications reviewed Stable and on room air oxygen Cleared for discharge Complete a prednisone taper Continue Symbicort, Singulair Not to use home Pulmicort if on Symbicort Albuterol as needed She wishes to follow-up with our group post discharge Follow-up in the office in 1 week I have personally seen and examined the patient, performed the documentation and the assessment and plan as written. Number of minutes spent on the visit: 10 Dictation was produced using [employer] dictation software. Please excuse any grammatical, word or spelling errors.
[2024-08-02 17:00] LABS: Glucose,Whole Blood 128 mg/dL (70-110)
[2024-08-02 20:14] LABS: Glucose,Whole Blood 159 mg/dL (70-110)
[2024-08-03 07:18] LABS: Glucose,Whole Blood 106 mg/dL (70-110)
[2024-08-03 07:48] VITALS: RESP 16
[2024-08-03 08:18] LABS: Blood Urea Nitrogen 20.7 mg/dL (9.0-27.0); Calcium 9.2 mg/dL (8.7-10.3); Carbon Dioxide 22.9 mmol/L (21.6-31.8); Chloride 104 mmol/L (96-109); Glucose 115 mg/dL (70-110); Potassium 4.4 mmol/L (3.5-5.5); Sodium 138 mmol/L (135-145)
[2024-08-03 09:28] LABS: Basophils # (A) 0.04 X 10*3/uL (0.00-0.10); Basophils % (A) 0.3 %; Eosinophils # (A) 0.04 X 10*3/uL (0.04-0.35); Eosinophils % (A) 0.3 %; HCT 39.8 % (37.2-46.3); HGB 13.1 g/dL (12.0-15.0); Lymphocytes # (A) 4.05 X 10*3/uL (0.90-5.00); MCH 29.1 pg (27.0-32.0); MCHC 32.9 g/dL (32.0-37.0); MCV 88.4 FL (80.0-97.0); Mean Platelet Volume 10.8 FL (9.5-12.2); Monocytes # (A) 0.77 X 10*3/uL (0.20-1.00); Monocytes % (A) 4.9 %; NRBC Per 100 WBC 0 X 10*3/uL (0.00-0.01); Neutrophils # (A) 10.62 X 10*3/uL (1.80-7.70); Platelet Count 333 X 10*3/uL (140-440); RDW 13.4 % (11.5-14.5)
--- NOTE | 2024-08-03 11:19 | P.PN ---
Subjective Progress Note Date: 08/02/24 Patient is a 34-year-old female with known history of asthma and chronic back pain and daily marijuana use presented with complaints of difficulty in breathing since yesterday afternoon. On admission patient was requiring 2 L of oxygen via nasal cannula. Patient does have severe bronchial asthma. Patient was previously on Xolair. Currently on albuterol inhaler and nebulizer with good insight. In the ER patient had chest x-ray showed no acute cardiopulmonary process. EKG showed sinus rhythm. Laboratory data showed WBC 8.0 hemoglobin 13.3 and platelets 284 sodium 139 potassium 3.6 chloride 106 bicarb is 22 BUN 16 and creatinine 1.21 and blood sugar 101 liver enzymes are not elevated. Magnesium 1.9 and influenza A B RSV and COVID-19 PCR not detected. Patient has been afebrile on admission. 08/02/2024 Patient is currently sitting in the chair. Awake alert and oriented x 3. Shortness of breath is better than yesterday. No complaints of chest pain or worsening shortness of breath. Patient is on room air. No cough or sputum production. She has been continued on methylprednisolone changed to prednisone 40 mg daily today. Continued on DuoNebs. Pulmonary is on board. Lab data showed WBC 20.3 hemoglobin 13.6 and platelets 387 BUN 17.1 and creatinine 0.8 and blood sugar 162 and calcium 9.9. Current medications and Objective - Vital Signs Vital signs: Vital Signs Temp 97.7 F 08/02/24 19:54 Pulse 112 H 08/02/24 19:54 Resp 14 08/02/24 19:54 BP 132/79 08/02/24 19:54 Pulse Ox 95 08/02/24 19:54 FiO2 Intake & Output 08/02/24 08/02/24 08/03/24 06:59 18:59 06:59 Intake Total 540 2940 Balance 540 2940 Intake: Oral 540 2940 Other: Voiding Method Toilet # Voids 5 # Bowel Movements 1 - Exam PHYSICAL EXAMINATION: Patient is lying in the bed comfortably, no acute distress, awake alert and oriented.. HEENT: Normocephalic. Neck is supple. Pupils reactive. Nostrils clear. Oral cavity is moist. Neck reveals no JVD, carotid bruits, or thyromegaly. CHEST EXAMINATION: Trachea is central. Symmetrical expansion. Bilateral expiratory wheezing. Occasional rhonchi. Nonlabored breathing.. CARDIAC: Normal S1, S2 with no gallops. No murmurs ABDOMEN: Soft. Bowel sounds normal. No organomegaly. No abdominal bruits. Extremities: reveal no edema. No clubbing or cyanosis Neurologically awake, alert, oriented x3 with well-coordinated movements. No focal deficits noted Skin: No rash or skin lesions. Psychiatric: Coperative. Nonsuicidal Musculoskeletal: No joint swelling or deformity. Normal range of motion. - Labs CBC & Chem 7: 08/03/24 04:24 08/03/24 04:24 Labs: Abnormal Lab Results - Last 24 Hours (Table) 08/02/24 08/02/24 08/02/24 Range/Units 05:04 05:04 07:06 WBC 20.37 H (4.50-10.00) X 10*3/uL Immature Gran # 0.10 H (0.00-0.04) X 10*3/uL Neutrophils # 18.64 H (1.80-7.70) X 10*3/uL Eosinophils # 0 L (0.04-0.35) X 10*3/uL Carbon Dioxide 18.2 L (21.6-31.8) mmol/L Anion Gap 14.80 H (4.00-12.00) mmol/L BUN/Creatinine Ratio 21.38 H (12.00-20.00) Ratio Glucose 162 H (70-110) mg/dL POC Glucose (mg/dL) 144 H (70-110) mg/dL 08/02/24 08/02/24 08/02/24 Range/Units 12:17 16:58 20:13 WBC (4.50-10.00) X 10*3/uL Immature Gran # (0.00-0.04) X 10*3/uL Neutrophils # (1.80-7.70) X 10*3/uL Eosinophils # (0.04-0.35) X 10*3/uL Carbon Dioxide (21.6-31.8) mmol/L Anion Gap (4.00-12.00) mmol/L BUN/Creatinine Ratio (12.00-20.00) Ratio Glucose (70-110) mg/dL POC Glucose (mg/dL) 191 H 128 H 159 H (70-110) mg/dL Assessment and Plan Assessment: Acute exacerbation of bronchial asthma Acute hypoxemic respiratory failure requiring 2 L oxygen via nasal cannula. Currently back to room air. Acute kidney injury likely prerenal. Creatinine 1.2 on admission improved Marijuana use on daily basis GI prophylaxis with PPI and Lovenox for DVT prophylaxis Plan: Patient was on oxygen at 2 L per nasal cannula and titrated down to room air. Continue with DuoNebs and Symbicort as well as methylprednisolone IV 40 mg Q8 hourly, changed to prednisone 40 mg daily.. Pulmonary is on board. Continue to follow closely. Anticipate discharge in the next 24 hours.
[2024-08-03 12:14] LABS: Glucose,Whole Blood 105 mg/dL (70-110)
[2024-08-03 12:34] VITALS: BP 143/83; PULSE 74; TEMP 97.9
--- NOTE | 2024-08-03 12:46 | P.PN ---
Subjective Progress Note Date: 08/03/24 Patient is a 34-year-old female with past medical history significant for severe chronic bronchial asthma. 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 Her most recent hospitalization for asthma was May,. Uses nebulized budesonide and albuterol inhaler as needed. Previously, maintained on Xolair injections, however, her insurance no longer covers these. Presents to the emergency department yesterday afternoon with difficulty in breathing. She was placed on 2 L of supplemental oxygen, given several DuoNeb treatments, and loaded with IV Solu-Medrol. Workup in the ED including a chest x-ray which did not show any acute cardiopulmonary process. Viral screen negative for influenza A/B, RSV, COVID. CBC unremarkable for leukocytosis. CMP: Sodium 139, potassium 3.6, chloride 106, serum bicarb 22, BUN 16, creatinine 1.21, glucose 101. Lactic 1.1. LFTs not elevated. Normal saline infusing at 130 mL/h. Patient currently being evaluated on the general medical floor. Endorses progressively worsening shortness of breath over the last 4 to 5 days. Associated wheezing and chest tightness. Also, dry nonproductive cough, particularly worse at night and scraper hand. Denies any sick contacts. Denies any sputum production, hemoptysis, fevers or chills. Denies any nausea, vomiting, diarrhea. Admits to occasionally smoking marijuana, but no tobacco products. She works at the [employer]. Getting her getting medications has been an issue, and she has recently ran out of her Singulair. Current vital signs: Temperature 98.5 F, heart rate 100 bpm, blood pressure 146/81 mmHg, nontachypneic, SpO2 recorded at 96% on 2 L/min nasal cannula. The patient is seen today August 02, 2024 in follow-up on the regular medical floor. She is currently sitting up in bed. Awake and alert in no acute distress. Maintaining good O2 saturations in the 90s on room air oxygen. She is feeling quite a bit better today compared to yesterday. White count 20.3. Hemoglobin 13.6. Platelets 387. Sodium 137. Potassium 4.8. Bicarb 18. BUN 17. Creatinine 0.8. Glucose 162. She is continued on DuoNeb inhalations, Symbicort, Singulair, Solu-Medrol. Lovenox for DVT prophylaxis. The patient is seen today August 03, 2024 in follow-up on the regular medical floor. She is awake and alert in no acute distress. Resting comfortably in bed. Feeling nearly back to her baseline. She is continued on DuoNeb inhalations, Symbicort, Singulair. Complete pleating a prednisone taper. Lovenox for DVT prophylaxis. Continued on nystatin swish and swallow. White count 15.6. Hemoglobin 13.1. Platelets 333. Sodium 138. Potassium 4.4. Bicarb 23. BUN 21. Creatinine 0.9. Glucose 115. Objective - Vital Signs Vital signs: Vital Signs Temp 97.9 F 08/03/24 12:33 Pulse 74 08/03/24 12:33 Resp 16 08/03/24 12:33 BP 143/83 08/03/24 12:33 Pulse Ox 95 08/03/24 12:33 FiO2 Intake & Output 08/02/24 08/03/24 08/03/24 18:59 06:59 18:59 Intake Total 2940 1080 480 Balance 2940 1080 480 Intake: Oral 2940 1080 480 Other: Voiding Method Toilet Toilet # Voids 5 # Bowel Movements 1 - Exam GENERAL EXAM: Alert, active, 34-year-old female, on room air oxygen, comfortable in no apparent distress. HEAD: Normocephalic. EYES: Normal reaction of pupils, equal size. NOSE: Clear with pink turbinates. THROAT: No erythema or exudates. NECK: No masses, no JVD. CHEST: No chest wall deformity. LUNGS: Equal air entry with faint end expiratory wheeze. CVS: S1 and S2 normal with no audible murmur, regular rhythm. ABDOMEN: No hepatosplenomegaly, normal bowel sounds, no guarding or rigidity. SPINE: No scoliosis or deformity SKIN: No rashes CENTRAL NERVOUS SYSTEM: No focal deficits, tone is normal in all 4 extremities. EXTREMITIES: There is no peripheral edema. No clubbing, no cyanosis. Peripheral pulses are intact. - Labs CBC & Chem 7: 08/03/24 04:24 08/03/24 04:24 Labs: Abnormal Lab Results - Last 24 Hours (Table) 08/02/24 08/02/24 08/03/24 Range/Units 16:58 20:13 04:24 WBC 15.60 H (4.50-10.00) X 10*3/uL Immature Gran # 0.08 H (0.00-0.04) X 10*3/uL Neutrophils # 10.62 H (1.80-7.70) X 10*3/uL BUN/Creatinine Ratio (12.00-20.00) Ratio Glucose (70-110) mg/dL POC Glucose (mg/dL) 128 H 159 H (70-110) mg/dL 08/03/24 Range/Units 04:24 WBC (4.50-10.00) X 10*3/uL Immature Gran # (0.00-0.04) X 10*3/uL Neutrophils # (1.80-7.70) X 10*3/uL BUN/Creatinine Ratio 23.00 H (12.00-20.00) Ratio Glucose 115 H (70-110) mg/dL POC Glucose (mg/dL) (70-110) mg/dL Assessment and Plan Assessment: Acute exacerbation of severe chronic bronchial asthma, chest x-ray does not show any acute cardiopulmonary process. Viral screen negative for influenza A/B, RSV, COVID. Acute hypoxemic respiratory failure, recovered and on room air oxygen Acute kidney injury, recovered, creatinine 0.9 Marijuana smoker Plan: The patient was seen and evaluated Labs and medications reviewed Stable and on room air oxygen Cleared for discharge Complete a prednisone taper Continue Symbicort, Singulair Albuterol as needed Follow-up in our office in 1 week I have personally seen and examined the patient, performed the documentation and the assessment and plan as written. Number of minutes spent on the visit: 10 Dictation was produced using [email or web address] dictation software. Please excuse any grammatical, word or spelling errors.
== END 2024-08-03 14:14 | disposition home or self-care (01) | DRG 202 ==
LOC: EC 13:16 → 4SSUR 16:10 → 5NMEDONC 16:33
PROVIDERS: ADMIT Internal Medicine; ATTEND Internal Medicine
DX: J45.901 Unspecified asthma with (acute) exacerbation (principal); J96.01 Acute respiratory failure with hypoxia; N17.9 Acute kidney failure, unspecified; Z79.899 Other long term (current) drug therapy; Z87.891 Personal history of nicotine dependence; G89.29 Other chronic pain; M54.9 Dorsalgia, unspecified; Z88.0 Allergy status to penicillin; Z88.2 Allergy status to sulfonamides
CPT/HCPCS: 36415; 71046; 80048; 80053; 82803; 83605; 83735; 85025; 87636; 93005; 94640; 94760; 96361; 96374; 96375; 99291